=== PATIENT | female | born 1990 ===

== ENCOUNTER 2024-03-11 07:40 | Inpatient (IN) ==
[2024-03-11] MEDS ORDERED: OXYTOCIN 30 UNITS/NSS 30 UNITS/500 ML BAG IV PRN (08:22)
[2024-03-11] MEDS ORDERED: ACETAMINOPHEN 325 MG TAB PO PRN (08:22)
[2024-03-11] MEDS ORDERED: CALCIUM CARBONATE 500 MG CHEWABLE TAB PO PRN (08:22)
[2024-03-11] MEDS ORDERED: LIDOCAINE 1% LOCAL 20 ML VIAL INFIL PRN (08:22)
[2024-03-11] MEDS ORDERED: BUTORPHANOL TARTRATE 2 MG/ML VIAL IV PRN (08:27)
[2024-03-11 09:01] LABS: Hematocrit (blood only) 35.7 % (37.0-47.0); Hemoglobin 11.8 g/dl (12.0-16.0); Mean Corpuscular Hemoglobin 30.6 pg (25.0-34.0); Mean Corpuscular Hgb Conc 33.1 g/dL (32.0-36.0); Mean Corpuscular Volume 92.5 fL (80.0-100.0); Mean Platelet Volume 11.8 fL (9.4-12.4); Platelet Count 203 K/uL (130-400); RDW Coefficient of Variation 13.2 % (11.5-14.5); RDW Standard Deviation 44.2 fL (36.4-46.3); Red Blood Count 3.86 M/uL (4.20-5.40); White Blood Count 7.65 K/ul (4.8-10.8)
[2024-03-11 09:09] LABS: Albumin Globulin Ratio 1.2 (0.9-2); Albumin Level 3.2 gm/dl (3.4-5.0); BUN Creatinine Ratio 13.5 (10-20); Bilirubin,Total 0.3 mg/dl (0.2-1.0); Calcium 9.5 mg/dl (8.6-10.3); Creatinine Clr Calc Pharmacy 180.1 ml/min; Globulin 2.6 gm/dl (2.5-4.0); Potassium 3.7 mmol/L (3.5-5.1); Total Protein 5.8 gm/dl (6.0-8.3)
--- NOTE | 2024-03-11 09:11 | History & Physical Report ---
Date of Service March 11, 2024 Assessment & Plan (1) History of polyhydramnios: (2) Encounter for induction of labor: Plan: 33-year-old G1, P0 at 39 weeks and 1 day gestation who was scheduled for induction of labor at term due to recent diagnosis of polyhydramnios, recommended by [facility], Repeat CLARISSA is within normal limits today, Vital signs stable afebrile, Labs within normal limits, arrhythmia, benign, baseline normal, there are accelerations and moderate variability, no decelerations, GBS negative, Cervix unfavorable, Cervidil is placed for cervical ripening and discussed what to expect during induction of labor, continue to monitor closely. All questions were answered. (3) Anxiety during : (4) arrhythmia affecting , antepartum: Admission and Anticipated Discharge Date Admission Date: March 11, 2024 History of Present Illness Primary Care Provider: NO PCP Patient is a 33-year-old G1, P0 at 39 weeks and 1 day gestation who was scheduled for induction of labor at term due to findings of polyhydramnios on February 25, 2024, recommended by maternal medicine to be induced today. she feels well, no complaints. She denies contractions, leakage of fluid, vaginal bleeding. She reports good movements. Her has been otherwise uncomplicated, 1. AMA, NIPT low risk 2. Polyhydramnios, CLARISSA was 26 on February 24, repeat today is 16 cm, 3. Anxiety during , stable on Effexor 4. arrhythmia, reviewed by [facility] and recommended to be benign, GBS negative Allergies Allergy/AdvReac Type Severity Reaction Status Date / Time No Known Allergies Allergy Verified 05/24/19 14:40 Home Medications Medication Instructions Recorded Confirmed Type No Known Home Medications 05/24/19 05/24/19 History Patient History Medical History (Updated 03/11/24 @ 09:18 by Collin Ramirez MD) Snake bite poisoning copperhead bite in childhood, age 5 History of varicella as a child Surgical History (Updated 05/24/19 @ 14:59 by Althea Turner MD) H/O wisdom tooth extraction History of appendectomy 2013 Family History (Updated 05/24/19 @ 14:41 by Glendy Ferrari) Grandfather (Paternal) Myocardial infarction Denies family history of Ovarian cancer Prostate cancer Breast cancer Colonic polyp Social History (Updated 05/24/19 @ 14:42 by Glendy Ferrari) Smoking Status: Never smoker Second Hand Exposure: No; Do You Dip or Chew Tobacco: No; Tobacco Cessation Education Requested by Patient: No Hx Alcohol Use: No Hx Substance Use: No Preferred Language: Singaporean Communication Ability: Effective Gasket Notcher Required: No Beliefs That Will Affect Care: None marital status: Current Living Situation: Spouse Current Living Situation Comment: [place] current occupational status: employed and student Other Information That Helps Us Care for You: No Feels Safe at Home: Yes Safety Concerns: Feels Safe At This Time Childhood Exposure to Second-Hand Smoke: No caffeine: Yes Dental Care, Regularly: Yes Physical Activity Frequency: 3-4 Times per Week Seatbelt Use: always Sunscreen Use: Yes Assistive Devices: None CORE SHAPER SIDES History no history of STDs, no history of chlamydia, gonorrhea, herpes Review of Systems as per Subjective / HPI Physical Exam Constitutional: WD/WN, vitals as above well developed, well nourished and comfortable Gastrointestinal (Abdomen): normal bowel sounds, soft, nontender, no hepatosplenomegaly bedside ultrasound, vertex presentation, CLARISSA 16 cm, placenta fundal anterior Genitourinary: normal external appearance OB Exam Abdomen: + vertex Manual OB Exam: + cervical dilation fingertip, + cervical effacement 50% and + station high ( posterior) Results & Data Vital Signs (Past 12 Hours) Vital Signs Temp Pulse Resp BP 03/11/24 08:18 91 H 140/80 03/11/24 08:16 37.2 C 91 H 18 140/80 Diagnostic Findings Lab Results 03/11/24 Range/Units 08:41 WBC 7.65 (4.8-10.8) K/ul RBC 3.86 L (4.20-5.40) M/uL Hgb 11.8 L (12.0-16.0) g/dl Hct 35.7 L (37.0-47.0) % MCV 92.5 (80.0-100.0) fL MCH 30.6 (25.0-34.0) pg MCHC 33.1 (32.0-36.0) g/dL RDW Std Deviation 44.2 (36.4-46.3) fL RDW Coeff of Negrita 13.2 (11.5-14.5) % Plt Count 203 (130-400) K/uL MPV 11.8 (9.4-12.4) fL Sodium 137 (136-145) mmol/L Potassium 3.7 (3.5-5.1) mmol/L Chloride 107 (98-107) mmol/L Carbon Dioxide 23 (21-32) mmol/L Anion Gap 7 (3-11) BUN 7 (6-23) mg/dl Creatinine 0.52 L (0.6-1.2) mg/dl Est Cr Clr Drug Dosing 180.1 ml/min eGFR 124.18 BUN/Creatinine Ratio 13.5 (10-20) Glucose 95 (70-99(Fasting)) mg/dl Calcium 9.5 (8.6-10.3) mg/dl Total Bilirubin 0.3 (0.2-1.0) mg/dl AST 18 (13-39) U/L ALT 10 (7-52) U/L Alkaline Phosphatase 187 H (34-104) U/L Total Protein 5.8 L (6.0-8.3) gm/dl Albumin 3.2 L (3.4-5.0) gm/dl Globulin 2.6 (2.5-4.0) gm/dl Albumin/Globulin Ratio 1.2 (0.9-2)
[2024-03-11] MEDS: DINOPROSTONE 10 MG INSERT PV ONE ×2 (09:12→23:12)
--- NOTE | 2024-03-11 14:52 | Obstetrical Progress Note ---
Date of Service March 11, 2024 Assessment & Plan Admission and Anticipated Discharge Date Admission Date: March 11, 2024 Subjective Patient is reevaluated Feels well, no complaints, she slept for a while did not wake up with pain nor contractions, feels mild cramps, irregular. No LOF/VB +FM FHR categ I Discussed what to expect and plan for tonight depending on her cervix and contraction pattern All questions were answered. Continue to monitor closely Results & Data Vital Signs (Past 12 Hours) Vital Signs Temp Pulse Resp BP 03/11/24 12:10 16 03/11/24 12:10 36.9 C 16 03/11/24 12:08 74 141/87 H 03/11/24 09:19 86 132/82 03/11/24 09:15 89 166/98 H 03/11/24 08:18 91 H 140/80 03/11/24 08:16 37.2 C 91 H 18 140/80
--- OUTSIDE RECORDS SUMMARY | 2024-03-11 15:16 | External Medical Summary | Summary of Care ---
Author Name Unknown Organization [facility] Address [address] [place] [address] Phone [phone] Care Team Providers Care Assembly Loader Name Role Phone Tammy Stauffer MD Primary Care Provider + Reason for Visit * Reason Comments Ultrasound * Evaluate & Treat - Unlimited Visits (Within 10 days (routine)) - Authorized Specialty Diagnoses / Procedures Referred By Contac t Referred To Contact Obstetrics/Gynecology / Maternal Medicine Diagnoses Encounter for supervision of normal first in third trimester Advanced maternal age, primigravida, antepartum arrhythmia affecting , antepartum Polyhydramnios in third trimester complication, single or unspecified fetus Backer, JAYNE Mason [address] [place] [address] Phone: tel: fax: Referral ID Status Reason Start Date Expiration Date Visits Requested Visits Authorized [id number] Authorized Specialty Services Required 02/24/[phone] Encounter Details Date Type Department Care Team (Late st Contact Info) Description 03/02/2024 7:30 AM EST Office Visit [facility], [place] [address] [place] [address] Anna Caban, [address] [place] [address] Advanced maternal age, primigravida, antepartum*; Polyhydramnios in third trimester complication, single or unspecified fetus; Encounter for anatomic survey; 37 weeks gestation of ; arrhythmia affecting , antepartum Allergies Active Allergy Reactions Criticality Noted Date Comments Cat Dander Other (Please comment) 07/13/2021 Itchy nose,watery eyes Grass Pollen(K-O-R-T-Swt Adam) Other (Please comment) 07/13/2021 Itchy nose,watery eyes Molds & Smuts Other (Please comment) 07/13/2021 Itchy nose,watery eyes documented as of this encounter (statuses as of 03/02/2024) Medications Vitamin 27-0.8 MG Oral Tablet Take by mouth. Active Venlafaxine HCl ER 75 MG Oral Capsule Extended Release 24 Hour (Effexor XR)Indications: INGRIS (generalized anxiety disorder) TAKE BY MOUTH 1 CAPSULE IN THE MORNING. DO NOT CUT, CRUSH OR CHEW. 30 Capsule 2 12/22/2023 Active documented as of this encounter (statuses as of 03/02/2024) Active Problems Problem Noted Date Diagnosed Date arrhythmia affecting , antepartum 03/02/2024 Assessment & Plan (03/02/2024 12:33 PM EST): Irregular FH heard in the office recently. On today's exam, both conducted and nonconducted premature atrial contractions were seen. This was explained and the patient advised that this arrhythmia is considered benign and the natural history is one of spontaneous resolution either prior to or in the immediate period. In rare cases (1%), it may accelerate to SVT which could require pharmacologic treatment. Recommend weekly Doppler of FH in OB office or weekly NSTs to r/o SVT. Questions answered. Polyhydramnios in third trimester 02/24/2024 Overview (02/25/2024): CLARISSA 26.2 cm at 36w6d; repeat GTT normal Assessment & Plan (03/02/2024 12:32 PM EST): At your request, Melisa was seen today due to polyhydramnios on outside exam. Report reviewed. Normal 1'GTT on 02/23 as well as 12/24 reviewed. CONSIDERATIONS: Polyhydramnios is the presence of elevated levels of amniotic fluid index (CLARISSA) greater than or equal to 24 cm or a maximum of vertical pocket (MVP) greater than or equal to 8 cm. Polyhydramnios is categorized as: Mild CLARISSA of 24.0-29.9 cm Moderate CLARISSA of 30.0-34.9 cm Severe CLARISSA of greater than or equal to 35 cm We discussed potential etiologies and complications associated with polyhydramnios. Mild polyhydramnios often resolves spontaneously without negative effects on the . RECOMMENDATIONS: In non-diabetic patients, re-screen for GDM if not done within the previous 4 weeks. Already performed in this case. Recommend delivery at 39 weeks. History of respiratory syncytial virus (RSV) vac cination 01/28/2024 Overview (01/28/2024): 01/28/24 Family history of congenital or genetic conditio n 11/11/2023 Assessment & Plan (03/02/2024 9:20 AM EST): Melisa is not a carrier for mucopolysaccharidosis. INGRIS (generalized anxiety disorder) 11/11/2023 Screening for genetic disease carrier status 03/2023 Overview (10/23/2023): Expanded carrier screening for 600 genes completed. Testing was negative, she was not found to be a carrier for any condition. See scanned in report on 10/06/23. Supervision of normal first 10/02/2023 Advanced maternal age, primigravida, antepartum 09/04/2023 Overview (10/02/2023): Low risk NIPT Assessment & Plan (03/02/2024 8:58 AM EST): Low risk NIPT appreciated. Anxiety during 09/04/2023 Overview (09/04/2023): Taking Effexor at NOB. 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 03/26/2022 Chronic anxiety 07/13/2021 Estimated Date of Delivery Comme nts Yes 03/17/2024 Based on Ultraso und documented as of this encounter (statuses as of 03/02/2024) Immunizations Name Administration Dates Next Due COVID-19 mRNA, LNP-s, No Pre serve, 2-Dose Series (Pfizer) 03/01/2021,07/17/2020,06/27/2020 Hepatitis B, 20+ yrs 11/11/2023,10/10/2022,09/10 RSV Vac., Bivalent, Perfusio n F, Pf,0.5 Ml (Abrysvo) 01/28/2024 Seasonal Influenza, PF, 6 M & above, IM , (FluLaval or Fluzone) 02/18/2019 Seasonal Influenza, Trivalen t, (IIV3), PF, (Fluzone) 12/03/2023 TDAP (age 10 and older)(Boostrix) 10/10/2020 TDAP, Age 7 and older, IM (Adacel) 12/25/2023 documented as of this encounter Social History Tobacco Use Types Packs/Day Years Used Date Smoking Tobacco: Never Passive Smoke Exposure: Never Smokeless Tobacco: Never Alcohol Use Standard Drinks/Week Comments Not Currently 0 (1 standard drink = 0.6 oz pur e alcohol) on weekends PHQ-2 Answer Date Recorded PHQ Adult Total Score 0 11/11/2023 Hunger Vital Sign Answer Date Recorded Within the past 12 months, y ou worried that your food would run out before you got the money to buy more. Never true 10/20/19 24 Within the past 12 months, t he food you bought just didn't last and you didn't have money to get more. Never true 10/20/2023 [place]zell Depression Scale Answer Date Recorded Dal[place]ell Depression Scale Total 1 01/28/2024 The thought of harming myself has occurred to me . Never 01/28/2024 Childcare Answer Date Recorded Do you feel overwhelmed with taking care of a child, family member or friend? No 10/20/2023 Does your family need help f inding childcare? (Household - for ages 0-17 years) Not on file 10/20/2023 Clothing Answer Date Recorded Have you been unable to get clothing when it was really needed? No 10/20/2023 Is your family able to get c lothes or diapers when needed? (Household - for ages 0-17 years) Not on file 10/20/2023 Personal Safety Answer Date Recorded Do you feel unsafe or have concerns for your saf ety? No 10/20/2023 Do you have concerns for you r family's safety? (Household - for ages 0-17 years) Not on file 10/20/2023 Utilities Answer Date Recorded Do you have trouble paying y our heating, water, or electric bill? No 10/20/2023 Is your family able to pay t he heat, water, or electric bill? (Household - for ages 0-17 years) Not on file 10/20/2023 Does your family have access to good internet? (Household - for ages 0-17 years) Not on file 10/20/2023 Employment Status Answer Date Recorded Are you unemployed or without regular income? No 10/20/2023 Does the household have a re lar source of income? (Household - for ages 0-17 years) Not on file 10/20/2023 Social Connections Answer Date Recorded How often do you feel lonely or isolated from th ose around you? Rarely 10/20/2023 Financial Resource Strain Answer Date R ecorded Do you have any trouble payi ng for your medications, or do you think you might in the future? No 10/20/2023 Does your family have troubl e paying for medicine? (Household - for ages 0-17 years) Not on file 10/20/2023 Transportation Needs Answer Date Record ed Do you have trouble getting a ride to medical visits or work? (Adult - for ages 18 years and over) Not on file 10/20/2023 Does your family have a hard time getting a ride to doctors visits? (Household - for ages 0-17 years) Not on file 10/20/2023 Has lack of transportation k ept you from medical appointments, meetings, work, or from getting things needed for daily living? Check all that apply. No 10/20/2023 Do you (or your family) have trouble finding or paying for a ride (transportation)? (Household - for ages 0-17 years) Not on file 10/20/2023 Housing Stability Answer Date Recorded Do you currently live in a s helter or have no steady place to sleep at night? No 10/20/2023 Do you think you are at risk of becoming homeless? (Adult - for ages 18 years and over) Not on file 10/20/2023 Does your family worry about paying for your home or becoming homeless? (Household - for ages 0-17 years) Not on file 0 10/20/2023 Are you homeless or worried that you might be in the future? No 10/20/2023 Are you (or your family) benjamín eless or worried that you might be in the future? (Household - for ages 0-17 years) Not on file Food Insecurity Answer Date Recorded Do you need food for this week? No 10/20/2023 Are you able to get enough f ood for your family? (Household - for ages 0-17 years) Not on file 10/20/2023 Does your family need food t his week? (Household - for ages 0-17 years) Not on file 10/20/2023 Do you always have enough fo od for your family? (Household - for ages 0-17 years) Not on file 10/20/2023 Estimated Date of Delivery Comme nts Yes 03/17/2024 Based on Ultraso und Sex and Gender Information Value Date Recorded Sex Assigned at Female 08/28/2022 10:14 AM EDT Legal Sex Female 4:57 PM EST Gender Identity Female 08/28/2022 10:14 AM EDT Sexual Orientation Straight 08/28/2022 10 :14 AM EDT documented as of this encounter Progress Notes * Anna Caban, DO - 03/02/2024 12:32 PM EST MATERNAL MEDICINE VISIT Melisa Graves presented today at 37w6d for an ultrasound and follow-up of her high risk . She was seen for the following indications: Problem List Items Addressed This Visit Advanced maternal age, primigravida, antepartum - Primary Low risk NIPT appreciated. Polyhydramnios in third trimester At your request, Melisa was seen today due to polyhydramnios on outside exam. Report reviewed. Normal 1'GTT on 02/23 as well as 12/24 reviewed. CONSIDERATIONS: Polyhydramnios is the presence of elevated levels of amniotic fluid index (CLARISSA) greater than or equal to 24 cm or a maximum of vertical pocket (MVP) greater than or equal to 8 cm. Polyhydramnios is categorized as: Mild CLARISSA of 24.0-29.9 cm Moderate CLARISSA of 30.0-34.9 cm Severe CLARISSA of greater than or equal to 35 cm We discussed potential etiologies and complications associated with polyhydramnios. Mild polyhydramnios often resolves spontaneously without negative effects on the . RECOMMENDATIONS: In non-diabetic patients, re-screen for GDM if not done within the previous 4 weeks. Already performed in this case. Recommend delivery at 39 weeks. arrhythmia affecting , antepartum Irregular FH heard in the office recently. On today's exam, both conducted and nonconducted premature atrial contractions were seen. This was explained and the patient advised that this arrhythmia isconsidered benign and the natural history is one of spontaneous resolution either prior to yong the immediate period. In rare cases (1%), it may accelerate to SVT which could require pharmacologic treatment. Recommend weekly Doppler of FH in OB office or weekly NSTs to r/o SVT. Questions answered. Other Visit Diagnoses Encounter for anatomic survey 37 weeks gestation of We reviewed today's ultrasound findings. Normal growth with no evidence of structural abnormalities, however exam suboptimal dueto advanced gestational age and position. Mild polyhydramnios. PACs noted. (For full details, please refer to ultrasound report provided separately). Ms. Graves's questions were answered to her satisfaction. She was advised to contact our office or her OB provider for any additional questions regarding her . RECOMMENDATIONS: Follow up with MFM for ultrasound as clinically indicated. Delivery at 39 weeks. Thank you for allowing us to participate in the care of this patient. Please call with any questions. Anna Caban DO 03/02/2024 12:34 PM documented in this encounter Miscellaneous Notes * Assessment & Plan Note - Anna Caban DO - 03/02/2024 12:33 PM EST Associated Problem(s): arrhythmia affecting , antepartum Irregular FH heard in the office recently. On today's exam, both conducted and nonconducted premature atrial contractions were seen. This was explained and the patient advised that this arrhythmia isconsidered benign and the natural history is one of spontaneous resolution either prior to yong the immediate period. In rare cases (1%), it may accelerate to SVT which could require pharmacologic treatment. Recommend weekly Doppler of FH in OB office or weekly NSTs to r/o SVT. Questions answered. * Assessment & Plan Note - Anna Caban DO - 03/02/2024 9:03 AM EST Associated Problem(s): Family history of congenital or genetic condition Melisa is not a carrier for mucopolysaccharidosis. * Assessment & Plan Note - Anna Caban DO - 03/02/2024 8:58 AM EST Associated Problem(s): Advanced maternal age, primigravida, antepartum Low risk NIPT appreciated. * Assessment & Plan Note - Anna Caban DO - 03/02/2024 8:57 AM EST Associated Problem(s): Polyhydramnios in third trimester At your request, Melisa was seen today due to polyhydramnios on outside exam. Report reviewed. Normal 1'GTT on 02/23 as well as 12/24 reviewed. CONSIDERATIONS: Polyhydramnios is the presence of elevated levels of amniotic fluid index (CLARISSA) greater than or equal to 24 cm or a maximum of vertical pocket (MVP) greater than or equal to 8 cm. Polyhydramnios is categorized as: Mild CLARISSA of 24.0-29.9 cm Moderate CLARISSA of 30.0-34.9 cm Severe CLARISSA of greater than or equal to 35 cm We discussed potential etiologies and complications associated with polyhydramnios. Mild polyhydramnios often resolves spontaneously without negative effects on the . RECOMMENDATIONS: In non-diabetic patients, re-screen for GDM if not done within the previous 4 weeks. Already performed in this case. Recommend delivery at 39 weeks. documented in this encounter Plan of Treatment Upcoming Encounters Date Type Department Care Team (Late st Contact Info) Description 11/11/2024 8:00 AM EDT Office Visit General Internal Medicine [facility] [place] [address] [facility] [place], [place] [address] Tammy Stauffer MD [address] [facility] [place] [address] Scheduled Orders Name Type Priority Associated Diagnoses Orde r Schedule MFM US BIOPHYSICAL WO NON STRESS Medical Imaging Routine Advanced maternal age, primigravida, antepartum Polyhydramnios in third trimester complication, single or unspecified fetus Encounter for anatomic survey 37 weeks gestation of arrhythmia affecting , antepartum 1 Occurrences starting 03/02/2024 until 04/02/2024 Health Maintenance Due Date Last Done Comments HPV/Co-Test 2018 COVID-19 Vaccine ( season) 2023 02/11/2023, 03/01/2021, 07/17/2020, Additional history exists Cervical Cancer Screening 07/13/2024 Pap Smear 07/13/2024 07/13/2021 Depression Monitoring 11/10/2024 11/11/2023 Diabetes Screening 09/10/2025 09/10/2022, 07/13/2021 DTap/Tdap Vaccines (3 - Td or Tdap) 12/24/2033 12/25/2023, 10/10/2020 Hepatitis B Vaccine Completed 11/11/2023, 10/10/2022, 09/10/2022 Influenza Vaccine (FLU shot) Completed 01/2024, 02/18/2019, 02/18/2019 HPV (Gardasil) Vaccine Aged Out No lo nger eligible based on patient's age to complete this topic MENINGOCOCCAL (MENACTRA/MENVEO) Aged Out No longer eligible based on patient's age to complete this topic Pneumococcal Vaccine: Pediatrics (0 to 5 Years) and At-Risk Patients (6 to 64 Years) Aged Out No longer eligible based on patient's age to complete this topic documented as of this encounter Medical Devices Not on filedocumented as of this encounter Visit Diagnoses Diagnosis Advanced maternal age, primigravida, antepartum- Primary Elderly primigravida, antepartum Polyhydramnios in third trimester complication, single or unspecified fetus Encounter for anatomic survey 37 weeks gestation of state, incidental arrhythmia affecting , antepartum Abnormality in heart rate/rhythm, antepartum condition or complication documented in this encounter Care Teams Assembly Loader Relationship Specialty Start Date End Date Tammy Stauffer MD [address] [place] [id number] PCP - General Internal Medicine 04/16/19 documented as of this encounter
--- OUTSIDE RECORDS SUMMARY | 2024-03-11 15:16 | External Medical Summary | Summary of Care ---
Author Name Unknown Organization [facility] Address [address] [place] [address] Phone [phone] Care Team Providers Care Billboard Installer Name Role Phone Tammy Stauffer MD Primary Care Provider + Reason for Visit * Reason Comments Return Visit Encounter Details Date Type Department Care Team (Late st Contact Info) Description 03/08/2024 2:15 PM EST Office Visit Gynecology/Obstetric [facility] [address] [place] [address] Jerome Self MD [address] [facility] [address] Advanced maternal age, primigravida, antepartum*; Anxiety during ; Encounter for supervision of normal first in third trimester; History of respiratory syncytial virus (RSV) vaccination; Polyhydramnios in third trimester complication, single or unspecified fetus; arrhythmia affecting , antepartum Allergies Active Allergy Reactions Criticality Noted Date Comments Cat Dander Other (Please comment) 07/13/2021 Itchy nose,watery eyes Grass Pollen(K-O-R-T-Swt Adam) Other (Please comment) 07/13/2021 Itchy nose,watery eyes Molds & Smuts Other (Please comment) 07/13/2021 Itchy nose,watery eyes documented as of this encounter (statuses as of 03/08/2024) Medications Vitamin 27-0.8 MG Oral Tablet Take by mouth. Active Venlafaxine HCl ER 75 MG Oral Capsule Extended Release 24 Hour (Effexor XR)Indications: INGRIS (generalized anxiety disorder) TAKE BY MOUTH 1 CAPSULE IN THE MORNING. DO NOT CUT, CRUSH OR CHEW. 30 Capsule 2 12/22/2023 Active documented as of this encounter (statuses as of 03/08/2024) Active Problems Problem Noted Date Diagnosed Date [...] as of this encounter (statuses as of 03/08/2024) Immunizations Name Administration Dates Next Due COVID-19 mRNA, LNP-s, No Pre serve, 2-Dose Series ([place]ASTA) 03/01/2021,07/17/2020,06/27/2020 Hepatitis B, 20+ yrs 11/11/2023,10/10/2022,09/10 RSV [...] money to get more. Never true 10/20/2023 [place] Depression Scale Answer Date Recorded [place] Depression Scale Total 1 01/28/2024 The thought [...] 10/20/2023 Does the household have a re gular source of income? (Household - for ages [...] AM EDT documented as of this encounter Last Filed Vital Signs Vital Sign Reading Time Taken Comments Blood Pressure 132/80 03/08/2024 2:11 PM EST Pulse - - Temperature - - Respiratory Rate - - Oxygen Saturation - - Inhaled Oxygen Concentration - - Weight 103.4 kg (228 lb) 03/08/2024 2:11 PM EST Height 167 cm (5' 5.75") 03/08/2024 2:11 PM EST Body Mass Index 37.08 03/08/2024 2:11 PM EST documented in this encounter Progress Notes * Jerome Self MD - 03/08/2024 2:36 PM EST Pt doing well No complaints Bree for induction on for Poly documented in this encounter Nursing Notes * Maddi Kowalski LPN - 03/08/2024 2:15 PM EST 38w5d Denies concerns documented in this encounter Plan of Treatment Upcoming Encounters Date Type Department Care Team (Late st Contact Info) Description 11/11/2024 8:00 AM EDT Office Visit General Internal Medicine Juvenal Sheehan [place] [address] [facility] [place] [address] Tammy Mitchell MD 200 [facility] [address] Health Maintenance Due Date Last Done Comments [...] in heart rate/rhythm, antepartum condition or complication Advanced maternal age, primigravida, antepartum- Primary Elderly primigravida, antepartum Anxiety during Encounter for supervision of normal first in third trimester Supervision of normal first History of respiratory syncytial virus (RSV) vaccination Polyhydramnios in third trimester complication, single or unspecified fetus arrhythmia affecting , antepartum Abnormality in heart rate/rhythm, antepartum condition or complication documented in this encounter Care Teams Billboard Installer Relationship Specialty Start Date End Date Tammy Stauffer MD [address] [place] [address] PCP - General Internal Medicine 04/16/19 documented as of this encounter
--- OUTSIDE RECORDS SUMMARY | 2024-03-11 15:16 | External Medical Summary | Summary of Care ---
Author Name Unknown Organization [facility] Address [address] [place] [address] Phone [phone] Care Team Providers Care Or Director Name Role Phone Tammy Stauffer MD Primary Care Provider + Reason for Visit * Reason Onset Date Comments Follow Up 03/03/2024 Encounter Details Date Type Department Care Team (Late st Contact Info) Description 03/03/2024 Telephone Gynecology/Obstetrics [facility] [address] [place] [address] Malaika Cordova CRNP [address] [facility] [address] Follow Up Allergies Active Allergy Reactions Criticality Noted Date Comments Cat Dander Other (Please comment) 07/13/2021 Itchy nose,watery eyes Grass Pollen(K-O-R-T-Swt Adam) Other (Please comment) 07/13/2021 Itchy nose,watery eyes Molds & Smuts Other (Please comment) 07/13/2021 Itchy nose,watery eyes documented as of this encounter (statuses as of 03/03/2024) Medications Vitamin 27-0.8 MG Oral Tablet Take by mouth. Active Venlafaxine HCl ER 75 MG Oral Capsule Extended Release 24 Hour (Effexor XR)Indications: INGRIS (generalized anxiety disorder) TAKE BY MOUTH 1 CAPSULE IN THE MORNING. DO NOT CUT, CRUSH OR CHEW. 30 Capsule 2 12/22/2023 Active documented as of this encounter (statuses as of 03/03/2024) Active Problems Problem Noted Date Diagnosed Date [...] as of this encounter (statuses as of 03/03/2024) Immunizations Name Administration Dates Next Due COVID-19 mRNA, LNP-s, No Pre serve, 2-Dose Series (Dctio) 03/01/2021,07/17/2020,06/27/2020 Hepatitis B, 20+ yrs 11/11/2023,10/10/2022,09/10 RSV [...] money to get more. Never true 10/20/2023 [place] Depression Scale Answer Date Recorded [place] Depression Scale Total 1 01/28/2024 The thought [...] AM EDT documented as of this encounter Miscellaneous Notes * Telephone Encounter - Maddi Kowalski LPN - 03/03/2024 9:04 AM EST TC to patient, accepts this date for IOL. Also moved French up from 03/12 to 03/08. * Telephone Encounter - Maddi Kowalski LPN - 03/03/2024 8:56 AM EST TC to patient, agreeable to scheduling induction next week. Scheduled for 03/11/24. * Telephone Encounter - Malaika Cordova CRNP - 03/03/2024 8:09 AM EST Received MFM note from visit - diagnosed with polyhydramnios. Dr Caban is recommending delivery in 39th week due to this. If patient is comfortable doing so, please help schedule induction at [facility]. Jeovany happy to speak with her further if needed. JAYNE Hoffman documented in this encounter Plan of Treatment Upcoming Encounters Date Type Department Care Team (Late st Contact Info) Description 03/08/2024 2:15 PM EST Office Visit Gynecology/Obstetrics [address] [place] [address] Jerome Self MD [address] [place] [address] 11/11/2024 8:00 AM EDT Office Visit General Internal Medicine [place] Claudia Islas [address] [facility] [place] [address] Tammy Stauffer MD [address] [facility] [place] [address] Health Maintenance Due Date Last Done Comments [...] Not on filedocumented as of this encounter Care Teams Or Director Relationship Specialty Start Date End Date Tammy Stauffer MD 200 [facility] [place] [address] PCP - General Internal Medicine 04/16/19 documented as of this encounter
--- OUTSIDE RECORDS SUMMARY | 2024-03-11 15:17 | External Medical Summary | Summary of Care ---
Author Name Unknown Organization [facility] Address [address] [place] [address] Phone [phone] Care Team Providers Care Commercial Leasing Agent Name Role Phone Tammy Stauffer MD Primary Care Provider + Reason for Visit * Reason Comments Return Visit Encounter Details Date Type Department Care Team (Late st Contact Info) Description 03/01/2024 3:45 PM EST Office Visit Gynecology/Obstetric s [facility] [address] [facility] [place] [address] Jerome Self MD [address] [facility] [place] [address] Advanced maternal age, primigravida, antepartum*; Anxiety during ; Encounter for supervision of normal first in third trimester; History of respiratory syncytial virus (RSV) vaccination; Polyhydramnios in third trimester complication, single or unspecified fetus Allergies Active Allergy Reactions Criticality Noted Date Comments Cat Dander Other (Please comment) 07/13/2021 Itchy nose,watery eyes Grass Pollen(K-O-R-T-Swt Adam) Other (Please comment) 07/13/2021 Itchy nose,watery eyes Molds & Smuts Other (Please comment) 07/13/2021 Itchy nose,watery eyes documented as of this encounter (statuses as of 03/01/2024) Medications Vitamin 27-0.8 MG Oral Tablet Take by mouth. Active Venlafaxine HCl ER 75 MG Oral Capsule Extended Release 24 Hour (Effexor XR)Indications: INGRIS (generalized anxiety disorder) TAKE BY MOUTH 1 CAPSULE IN THE MORNING. DO NOT CUT, CRUSH OR CHEW. 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 Testing was negative, she was not found to be a carrier for any condition. See scanned in report on 10/06/23. Supervision of normal first 10/02/2023 Advanced maternal age, primigravida, antepartum 09/04/2023 Overview (10/02/2023): Low risk NIPT Anxiety during 09/04/2023 Overview (09/04/2023): Taking Effexor at NOB. 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 Never true 10/20/2023 [place] Depression Scale Answer Date Recorded [place] Depression Scale Total 1 01/28/2024 The thought [...] Sign Reading Time Taken Comments Blood Pressure 132/82 03/01/2024 3:33 PM EST Pulse - - Temperature - - Respiratory Rate - - Oxygen Saturation - - Inhaled Oxygen Concentration - - Weight 103.2 kg (227 lb 8 oz) 03/01/2024 3:33 PM EST Height - - Body Mass Index 37 02/20/2024 4:05 PM EST documented in this encounter Progress Notes * Jerome Self MD - 03/01/2024 4:05 PM EST Pt doing well No complaints CLARISSA ; 24 Seeing MFM tomorrow * Marcella Obregon CMA - 03/01/2024 3:33 PM EST 37w5d + nausea + pelvic pain/pressure documented in this encounter Plan of Treatment Upcoming Encounters Date Type Department Care Team (Late st Contact Info) Description 03/02/2024 7:30 AM EST Office Visit Senior Underwriter Obstetrics Maternal Medicine, [address] [address] Anna Caban, [address] [place] [address] 03/02/2024 7:30 AM EST [facility] [place] [address] [place] [address] 11/11/2024 8:00 AM EDT Office Visit General Internal Medicine Juvenal Sheehan [place] 200 [facility] [place] [address] Tammy Stauffer MD 200 [facility] [place] [address] Health Maintenance Due Date Last Done Comments [...] third trimester complication, single or unspecified fetus documented in this encounter Care Teams Commercial Leasing Agent Relationship Specialty Start Date End Date Tammy Stauffer MD 200 [facility] [place] [address] PCP - General Internal Medicine 04/16/19 documented as of this encounter
--- OUTSIDE RECORDS SUMMARY | 2024-03-11 15:17 | External Medical Summary | Summary of Care ---
Author Name Unknown Organization [facility] Address [address] [place] [address] Phone [phone] Care Team Providers Care Tableau Analyst Name Role Phone Tammy Stauffer MD Primary Care Provider + Reason for Visit * Reason Comments Outpatient Testing Encounter Details Date Type Department Care Team (Late st Contact Info) Description 12/25/2023 10:40 AM EDT Laboratory Laboratory, [facility] [address] [place] [id number] [facility] [address] [place] [address] Encounter for supervision of normal first in second trimester Allergies Active Allergy Reactions Criticality Noted Date Comments Cat Dander Other (Please comment) 07/13/2021 Itchy nose,watery eyes Grass Pollen(K-O-R-T-Swt Adam) Other (Please comment) 07/13/2021 Itchy nose,watery eyes Molds & Smuts Other (Please comment) 07/13/2021 Itchy nose,watery eyes documented as of this encounter (statuses as of 12/25/2023) Medications Medication Sig Dispensed Refills Start Date End Date Status Vitamin 27-0.8 MG Oral Tablet Take by mouth. Active Venlafaxine HCl ER 75 MG Oral Capsule Extended Release 24 Hour (Effexor XR)Indications:INGRIS (generalized anxiety disorder) TAKE BY MOUTH 1 CAPSULE IN THE MORNING. DO NOT CUT, CRUSH OR CHEW. 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 Testing was negative, she was not found to be a carrier for any condition. See scanned in report on 10/06/23. Supervision of normal first 10/02/2023 Advanced maternal age, primigravida, antepartum 09/04/2023 Overview: Low risk NIPT Anxiety during 09/04/2023 Overview: Taking Effexor at NOB. 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 Never true 10/20/2023 [place] Depression Scale Answer Date Recorded [place] Depression Scale Total 6 09/04/2023 The thought of harming myself has occurred to me . Never 09/04/2023 Childcare Answer Date Recorded Do you feel [...] 10/20/2023 Transportation Needs Answer Date Record ed READ ONLY Do you have troubl e getting a ride to medical visits or work? Never True 10/20/2023 Does your family have a hard [...] place to sleep at night? No 10/20/2023 READ ONLY Do you think you a re at risk of becoming homeless? No 10/20/2023 Does your family worry about paying [...] Assigned at Female 08/28/2022 10:14 AM EDT Gender Identity Female 08/28/2022 10:14 AM EDT Sexual Orientation Straight 08/28/2022 10 :14 AM EDT Job Start Date Occupation Industry Not on file Not on file Not on file documented as of this encounter Plan of Treatment Upcoming Encounters Date Type Department Care Team (Late st Contact Info) Description 01/08/2024 2:15 PM EDT Office Visit Gynecology/Obstetrics Elvin Gardner [address] [place] [address] Flor Pack CRNP [address] [place] [address] 11/11/2024 8:00 AM EDT Office Visit General Internal Medicine [place]ven[place] She[place] [facility] [place] [address] Tammy Stauffer MD 200 [facility] [place] [address] Pending Results Name Type Priority Associated Diagnoses Date /Time CBC WITH WBC DIFFERENTIAL AND ANEMIA REFLEX WORKUP Lab Routine Encounter for supervision of normal first in second trimester 12/25/2023 12:15 PM EDT SYPHILIS ANTIBODY SCREEN WITH REFLEX TO RPR Lab Routine Encounter for supervision of normal first in second trimester 12/25/2023 12:15 PM EDT ANEMIA CBC Lab Routine Encounter for supervision of normal first in second trimester 12/25/2023 12:15 PM EDT DIFFERENTIAL, AUTOMATED Lab Routine Encounter for supervision of normal first in second trimester 12/25/2023 12:15 PM EDT ANEMIA REFLEX CHEMISTRY HOLD Lab Routine Encounter for supervision of normal first in second trimester 12/25/2023 12:15 PM EDT SYPHILIS ANTIBODY SCREEN Lab Routine Encounter for supervision of normal first in second trimester 12/25/2023 12:15 PM EDT Health Maintenance Due Date Last Done Comments [...] Not on filedocumented as of this encounter Procedures Procedure Name Priority Date/Time Associated Diagnosis Comments 50-G GESTATIONAL GLUCOSE, 1 HOUR Routine 12/25/2023 12:15 PM EDT Encounter for supervision of normal first in second trimester documented in this encounter Results * 50-G GESTATIONAL GLUCOSE, 1 HOUR (12/25/2023 12:15 PM EDT) 50-g Gestational Glucose, 1 Hour 129 70 - 129 mg/dL 12/25/2023 12:56 PM EDT [facility] [place] [facility]10 Blood Venous blood specimen / Unknown Venipuncture / Unknown 12/25/2023 12:15 PM EDT 12/25/2023 12:15 PM EDT Cass Roque PA-C LAB BLOOD ORDERABLES [facility] [place] [facility]10 [address] [facility] [place] [address] documented in this encounter Visit Diagnoses Diagnosis Encounter for supervision of normal first in second trimester Supervision of normal first documented in this encounter Care Teams Tableau Analyst Relationship Specialty Start Date End Date Tammy Stauffer MD 200 [facility] [place] [address] PCP - General Internal Medicine 04/16/19 documented as of this encounter
--- OUTSIDE RECORDS SUMMARY | 2024-03-11 15:17 | External Medical Summary | Summary of Care ---
Author Name Unknown Organization [facility] Address [address] [place] [address] Phone [phone] Care Team Providers Care Color Expert Name Role Phone Tammy Stauffer MD Primary Care Provider + Reason for Visit * Reason Comments Return Visit Encounter Details Date Type Department Care Team (Late st Contact Info) Description 02/20/2024 4:15 PM EST Office Visit Gynecology/Obstetric [facility] [address] [facility] [place] [address] Jerome Self MD [address] [address] Advanced maternal age, primigravida, antepartum*; Anxiety during ; Encounter for supervision of normal first in third trimester; History of respiratory syncytial virus (RSV) vaccination Allergies Active Allergy Reactions Criticality Noted Date [...] mRNA, LNP-s, No Pre serve, 2-Dose Series ([place]) 03/01/2021,07/17/2020,06/27/2020 Hepatitis B, 20+ yrs 11/11/2023,10/10/2022,09/10 RSV [...] money to get more. Never true 10/20/2023 [place] Depression Scale Answer Date Recorded [place] Depression Scale Total 1 01/28/2024 The thought [...] Sign Reading Time Taken Comments Blood Pressure 120/68 02/20/2024 4:05 PM EST Pulse - - Temperature - - Respiratory Rate - - Oxygen Saturation - - Inhaled Oxygen Concentration - - Weight 103 kg (227 lb) 02/20/2024 4:05 PM EST Height 167 cm (5' 5.75") 02/20/2024 4:05 PM EST Body Mass Index 36.92 02/20/2024 4:05 PM EST documented in this encounter Progress Notes * Jerome Self MD - 03/01/2024 4:34 PM EST Pt doing well No comaplaionts documented in this encounter Nursing Notes * Carly Jackson LPN - 02/20/2024 4:06 PM EST 36w2d Needs gbs documented in this encounter Plan of Treatment Upcoming Encounters Date Type Department Care Team (Late st Contact Info) Description 03/02/2024 7:30 AM EST Office Visit Adjunct Art History Instructor Obstetrics Maternal Medicine, [address] [address] Anna Caban DO [address] [place] [facility] [place] [address] 03/02/2024 7:30 AM EST [facility] [address] [place] [address] 11/11/2024 8:00 AM EDT Office Visit General Internal Medicine Juvenal Sheehan [place] 200 [facility] [place] [place] [address] Tammy Stauffer MD 200 [facility] [place] [address] Health Maintenance Due Date Last Done Comments [...] Procedure Name Priority Date/Time Associated Diagnosis Comments GROUP B STREP CULTURE/PCR Routine 02/20/2024 4:16 PM EST Anxiety during documented in this encounter Results * GROUP B STREP CULTURE/PCR (02/20/2024 4:16 PM EST) Group B Strep PCR Result Negative Negative 02/21/2024 8:26 PM EST [facility] Comment:No Group B Streptoco ccus detected by culture-enhanced PCR (amplified probe). GBS GBSCt 0.0 02/21/2024 8:26 PM EST [facility] GBS SPCCt 32.0 02/21/2024 8:26 PM EST [facility] Swab Rectum and vagina, CS / Unknown 02/20/2024 4:16 PM EST 02/20/2024 4:16 PM EST us Jerome Self MD LAB MICRO - GENERAL ORDERABLES F inal Result [facility] [address] [place] [address] documented in this encounter Visit Diagnoses Diagnosis Advanced maternal age, primigravida, antepartum- Primary Elderly primigravida, antepartum Anxiety during Encounter for supervision of normal first in third trimester Supervision of normal first History of respiratory syncytial virus (RSV) vaccination documented in this encounter Care Teams Color Expert Relationship Specialty Start Date End Date Tammy Stauffer MD 200 [facility] [place] [address] PCP - General Internal Medicine 04/16/19 documented as of this encounter
--- OUTSIDE RECORDS SUMMARY | 2024-03-11 15:17 | External Medical Summary ---
Author Name Unknown Address Unknown Organization K01:[facility] [place] [address] [place] [address] Laboratory Report Ordering Provider Test Date Status JOSHUA SCOTT 02/20/2024 16:16:35 Final Observation Date Value Abnormality Reference (Units ) Status Streptococcus agalactiae DNA [Presence] in Specimen by OLAG LIDIA with probe detection 02/20/2024 16:16:35 Negative Negative Final No Group B Streptococcus det ected by culture-enhanced PCR (amplified probe). GBS GBSCT - [facility] 02/20/2024 16:16:35 0.0 Final GBS SPCCT - [facility] 02/20/2024 16:16:35 32.0 Final Performing Location [facility] [place] [address]
--- OUTSIDE RECORDS SUMMARY | 2024-03-11 15:17 | External Medical Summary | Summary of Care ---
Author Name Unknown Organization [facility] Address [address] [place] [address] Phone [phone] Care Team Providers Care Baker Pie Name Role Phone Tammy Stauffer MD Primary Care Provider + Reason for Visit * Reason Onset Date Comments Referral 02/25/2024 Encounter Details Date Type Department Care Team (Late st Contact Info) Description 02/25/2024 Telephone Director Business Development Obstetrics Maternal Medicine, [place] [address], [place] [id number] [place], Nurse Director Business Development [facility] [address] [place], [place] [phone] Referral Allergies Active Allergy Reactions Criticality Noted Date Comments Cat Dander Other (Please comment) 07/13/2021 Itchy nose,watery eyes Grass Pollen(K-O-R-T-Swt Adam) Other (Please comment) 07/13/2021 Itchy nose,watery eyes Molds & Smuts Other (Please comment) 07/13/2021 Itchy nose,watery eyes documented as of this encounter (statuses as of 02/25/2024) Medications Vitamin 27-0.8 MG Oral Tablet Take by mouth. Active Venlafaxine HCl ER 75 MG Oral Capsule Extended Release 24 Hour (Effexor XR)Indications: INGRIS (generalized anxiety disorder) TAKE BY MOUTH 1 CAPSULE IN THE MORNING. DO NOT CUT, CRUSH OR CHEW. 30 Capsule 2 12/22/2023 Active documented as of this encounter (statuses as of 02/25/2024) Active Problems Problem Noted Date Diagnosed Date [...] as of this encounter (statuses as of 02/25/2024) Immunizations Name Administration Dates Next Due COVID-19 mRNA, LNP-s, No Pre serve, 2-Dose Series ([employer]) 03/01/2021,07/17/2020,06/27/2020 Hepatitis B, 20+ yrs 11/11/2023,10/10/2022,09/10 RSV [...] money to get more. Never true 10/20/2023 [place] Depression Scale Answer Date Recorded [place] Depression Scale Total 1 01/28/2024 The thought [...] encounter Miscellaneous Notes * Telephone Encounter - Kristie Fisher OSA - 02/25/2024 10:09 AM EST Spoke with Melisa. Appointment scheduled. Patient aware of date, time and location of Maternal Medicine appointment. * Telephone Encounter - Althea Zheng CCMA - 02/25/2024 9:51 AM EST Estimated Date of Delivery: 03/17/24 Please schedule for LONG SCAN, in time frame of within 1 week at location [facility] with the indication of AMA (36), arrhythmia, polyhydramnios. Referring Provider: Malaika Cordova CRNP documented in this encounter Plan of Treatment Upcoming Encounters Date Type Department Care Team (Late st Contact Info) Description 03/01/2024 3:45 PM EST [facility] [address] [place] [address] Jerome Self MD [address] [place] [address] 03/02/2024 7:30 AM EST Office Visit Director Business Development Obstetrics Maternal Medicine, [place] [address] [place] [address] Mee Anna Sullivan, [address] [place] [address] 03/02/2024 7:30 AM EST [facility] [place] [address] [place] [address] 11/11/2024 8:00 AM EDT Office Visit General Internal Medicine [place]venal Sheehan [place] [address] [facility] [place] [address] Tammy Stauffer MD [address] [facility] [place] [address] Health Maintenance Due Date Last Done Comments [...] filedocumented as of this encounter Care Teams Baker Pie Relationship Specialty Start Date End Date Tammy Stauffer MD [address] [place] [address] PCP - General Internal Medicine 04/16/19 documented as of this encounter
--- OUTSIDE RECORDS SUMMARY | 2024-03-11 15:17 | External Medical Summary | Summary of Care ---
Author Name Unknown Organization [facility] Address [address] [place] [address] Phone [phone] Care Team Providers Care Anthropology Professor Name Role Phone Tammy Stauffer MD Primary Care Provider + Reason for Referral * Evaluate & Treat - Unlimited Visits (Within 10 days (routine)) - Authorized Specialty Diagnoses / Procedures Referred By Colton t Referred To Contact Obstetrics/Gynecology / Maternal Medicine Diagnoses Encounter for supervision of normal first in third trimester Advanced maternal age, primigravida, antepartum arrhythmia affecting , antepartum Polyhydramnios in third trimester complication, single or unspecified fetus Malaika Cordova CRNP [address] [place] [address] Phone: tel: fax: Referral ID Status Reason Start Date Expiration Date Visits Requested Visits Authorized [id number] Authorized Specialty Services Required 02/24/2024 999 [id number] Question Answer Referral Priority Within 10 days (routine) Has the patient had a viability scan? Yes Date performed 09/04/2023 Location performed Radiology Reason for referral Abnormal ultrasound findings Please provide additional details CLARISSA 26 cm, arrythmia auscultated Where should this appointment be scheduled? [facility] Comments /Para: LMP: No LMP recorded (lmp unknown). Patient is . SANTANA: 03/17/2024, by Ultrasound Pre-Gravid BMI: 30.09 Reason for Visit * Reason Comments Return Visit Encounter Details Date Type Department Care Team (Late st Contact Info) Description 02/24/2024 1:45 PM EST Office Visit Gynecology/Obstetric s Elvin Gardner [address] [place] [address] [place], JAYNE Mason [address] [place] [address] Encounter for supervision of normal first in third trimester*; Advanced maternal age, primigravida, antepartum; Anxiety during ; History of respiratory syncytial virus (RSV) vaccination; Uterine size date discrepancy ; arrhythmia affecting , antepartum; Polyhydramnios in third trimester complication, single or unspecified fetus Allergies Active Allergy Reactions Criticality Noted Date Comments Cat Dander Other (Please comment) 07/13/2021 Itchy nose,watery eyes Grass Pollen(K-O-R-T-Swt Adam) Other (Please comment) 07/13/2021 Itchy nose,watery eyes Molds & Smuts Other (Please comment) 07/13/2021 Itchy nose,watery eyes documented as of this encounter (statuses as of 02/24/2024) Medications Vitamin 27-0.8 MG Oral Tablet Take by mouth. Active Venlafaxine HCl ER 75 MG Oral Capsule Extended Release 24 Hour (Effexor XR)Indications: INGRIS (generalized anxiety disorder) TAKE BY MOUTH 1 CAPSULE IN THE MORNING. DO NOT CUT, CRUSH OR CHEW. 30 Capsule 2 12/22/2023 Active documented as of this encounter (statuses as of 02/24/2024) Active Problems Problem Noted Date Diagnosed Date Polyhydramnios in third trimester 02/24/2024 Overview (02/24/2024): CLARISSA 26.2 cm at 36w6d History of respiratory syncytial virus (RSV) vac [...] as of this encounter (statuses as of 02/24/2024) Immunizations Name Administration Dates Next Due COVID-19 mRNA, LNP-s, No Pre serve, 2-Dose Series ([employer]) 03/01/2021,07/17/2020,06/27/2020 Hepatitis B, 20+ yrs 11/11/2023,10/10/2022,09/10 RSV [...] money to get more. Never true 10/20/2023 [place] Depression Scale Answer Date Recorded [place] Depression Scale Total 1 01/28/2024 The thought [...] Sign Reading Time Taken Comments Blood Pressure 136/78 02/24/2024 1:45 PM EST Pulse - - Temperature - - Respiratory Rate - - Oxygen Saturation - - Inhaled Oxygen Concentration - - Weight 103 kg (227 lb) 02/24/2024 1:45 PM EST Height - - Body Mass Index 36.92 02/20/2024 4:05 PM EST documented in this encounter Progress Notes * Malaika Cordova CRNP - 02/24/2024 1:59 PM EST 36w6d Very uncomfortable with sciatic pain, working with PT. No leaking, bleeding, ctx. Baby is moving well. Anxiety well managed with Effexor at current dose. S>D, growth scan today shows EFW 76th %ile, CLARISSA elevated at 26.2 cm. Skipped beats auscultated on doppler, NST reactive. Reviewed this with Dr Caban in MFM, who states arrhythmia are likely benign PACs and echo not indicated, though can offer non-urgent MFM referral. Pt accepts this, aware she will hear from M for scheduling. Discussed elevated CLARISSA and potential etiology. Recommend repeat GTT, pt wishes to do this today. 1 week return JAYNE Hoffman ASSESSMENT assessment with Non-stress Test completed on 02/24/2024 at 36.6 weeks gestation for indicationof arrhythmia heart baseline: 140 bpm Variability: Moderate Decelerations: absent Accelerations: present Contractions: Present irregular, pt not feeling them NST start time: 1523 - time incorrect on EFM NST stop time: 1545 NST strip reviewed, interpreted, and approved by OB provider, JAYNE Hoffman . NST strip stored in [employer] documented in this encounter Plan of Treatment Upcoming Encounters Date Type Department Care Team (Late st Contact Info) Description 03/01/2024 3:45 PM EST Office Visit Gynecology/Obstetrics [facility] [address] [place] [address] Jerome Self MD [address] [place] [address] 11/11/2024 8:00 AM EDT Office Visit [facility] [place] [address] [facility] [place] [address] Tammy Stauffer MD [address] [facility] [place] [address] Scheduled Orders Name Type Priority Associated Diagnoses Orde r Schedule 50-G GESTATIONAL GLUCOSE, 1 HOUR Lab Routine Encounter for supervision of normal first in third trimester Polyhydramnios in third trimester complication, single or unspecified fetus Expected: 02/24/2024, Expires: 02/23/2025 MFM US MATERNAL 1ST FETUS Medical Imaging Routine Encounter for supervision of normal first in third trimester Advanced maternal age, primigravida, antepartum arrhythmia affecting , antepartum Polyhydramnios in third trimester complication, single or unspecified fetus Expected: 02/24/2024, Expires: 03/26/2025 Scheduled Referrals Name Type Priority Associated Diagnoses Orde r Schedule MATERNAL MEDICINE REFERRAL OP Referral Within 10 days (routine) Encounter for supervision of normal first in third trimester Advanced maternal age, primigravida, antepartum arrhythmia affecting , antepartum Polyhydramnios in third trimester complication, single or unspecified fetus Ordered: 02/24/2024 Health Maintenance Due Date Last Done Comments [...] Not on filedocumented as of this encounter Results * US PREG FOLLOW-UP EACH FETUS (02/24/2024 2:31 PM EST) Anatomical Region Laterality Modality Pelvis, Body Ultrasound 02/24/2024 2:39 PM EST Impressions 02/24/2024 2:39 PM EST IMPRESSION 1. Growth within normal limits utilizing SANTANA from initial scan. 2. Polyhydramnios 3. Vertex presentation. I have personally reviewed this examination and agree with the resident/fellow physician's interpretation. Narrative 02/24/2024 2:39 PM EST EXAM US PREG FOLLOW-UP EACH FETUS - 02/24/2024 2:31 pm HISTORY growth, S>D COMPARISON No Comparison. TECHNIQUE Sonographic examination performed. FINDINGS General : [place] Presentation: Vertex heart rate: 140 bpm CLARISSA: 26.2 cm which is greater than the 95th percentile for this stage of . The largest vertical pocket measures 8.7 cm. Placenta: Posterior, fundal Anatomy 4-chamber view: Seen Stomach: Seen Kidneys: Seen Bladder: Seen Biometry The previous study of 09/04/2023 estimated the date of delivery of 03/17/2024. Utilizing that date, current gestational age is 36 weeks 6 days. Biparietal diameter: 9.3 cm, 37w 6d Head circumference: 33.4 cm, 38w 1d Abdominal circumference: 33.0 cm, 36w 6d Femur length: 7.6 cm, 39w 0d Humeral length: 6.6 cm, 38w 2d HC/AC: 1.01, within normal limits EFW: 3280 g +/-479 g which is the 76th percentile. Utilizing the date of delivery obtained from the initial scan, growth of the BPD, HC, AC, femur and humerus is within normal limits. Procedure Note Davon Zhou MD - 02/24/2024 EXAM US PREG FOLLOW-UP EACH FETUS - 02/24/2024 2:31 pm HISTORY growth, S>D COMPARISON No Comparison. TECHNIQUE Sonographic examination performed. FINDINGS General : [place] Presentation: Vertex heart rate: 140 bpm CLARISSA: 26.2 cm which is greater than the 95th percentile for this stage ofpregnancy. The largest vertical pocket measures 8.7 cm. Placenta: Posterior, fundal Anatomy 4-chamber view: Seen Stomach: Seen Kidneys: Seen Bladder: Seen Biometry The previous study of 09/04/2023 estimated the date of delivery of03/17/2024. Utilizing that date, current gestational age is 36 weeks 6days. Biparietal diameter: 9.3 cm, 37w 6d Head circumference: 33.4 cm, 38w 1d Abdominal circumference: 33.0 cm, 36w 6d Femur length: 7.6 cm, 39w 0d Humeral length: 6.6 cm, 38w 2d HC/AC: 1.01, within normal limits EFW: 3280 g +/-479 g which is the 76th percentile. Utilizing the date of delivery obtained from the initial scan, growth ofthe BPD, HC, AC, femur and humerus is within normal limits. IMPRESSION IMPRESSION 1. Growth within normal limits utilizing SANTANA from initial scan. 2. Polyhydramnios 3. Vertex presentation. I have personally reviewed this examination and agree with the resident/fellow physician's interpretation. Malaika GODOY RAD ULTRASOUND Fin al Result documented in this encounter Visit Diagnoses Diagnosis Encounter for supervision of normal first in third trimester- Primary Supervision of normal first Advanced maternal age, primigravida, antepartum Elderly primigravida, antepartum Anxiety during History of respiratory syncytial virus (RSV) vaccination Uterine size date discrepancy Uterine size date discrepancy, antepartum condition or complication arrhythmia affecting , antepartum Abnormality in heart rate/rhythm, antepartum condition or complication Polyhydramnios in third trimester complication, single or unspecified fetus Encounter for supervision of normal first in third trimester Supervision of normal first Uterine size date discrepancy Uterine size date discrepancy, antepartum condition or complication documented in this encounter Care Teams Anthropology Professor Relationship Specialty Start Date End Date Tammy Stauffer MD [address] [place] [address], [place] [address] PCP - General Internal Medicine 04/16/19 documented as of this encounter
--- OUTSIDE RECORDS SUMMARY | 2024-03-11 15:17 | External Medical Summary | Summary of Care ---
Author Name Unknown Organization [facility] Address [address] [place] [address] Phone [phone] Care Team Providers Care Assistant Production Manager Name Role Phone Tammy Stauffer MD Primary Care Provider + Reason for Visit * Reason Onset Date Comments Advice 02/17/2024 Encounter Details Date Type Department Care Team (Late st Contact Info) Description 02/17/2024 Telephone Gynecology/Obstetrics [facility] [address] [place] [address] Rashid Contreras MD [address] [facility] [place] [address] Advice Allergies Active Allergy Reactions Criticality Noted Date Comments Cat Dander Other (Please comment) 07/13/2021 Itchy nose,watery eyes Grass Pollen(K-O-R-T-Swt Adam) Other (Please comment) 07/13/2021 Itchy nose,watery eyes Molds & Smuts Other (Please comment) 07/13/2021 Itchy nose,watery eyes documented as of this encounter (statuses as of 02/17/2024) Medications Vitamin 27-0.8 MG Oral Tablet Take by mouth. Active Venlafaxine HCl ER 75 MG Oral Capsule Extended Release 24 Hour (Effexor XR)Indications: INGRIS (generalized anxiety disorder) TAKE BY MOUTH 1 CAPSULE IN THE MORNING. DO NOT CUT, CRUSH OR CHEW. 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 Never true 10/20/2023 [place] Depression Scale Answer Date Recorded [place] Depression Scale Total 1 01/28/2024 The [...] Orientation Straight 08/28/2022 10 :14 AM EDT Travel History Travel Start Travel End [place] 01/16/2024 01/24/2024 documented as of this encounter Miscellaneous Notes * Telephone Encounter - Maddi Kowalski LPN - 02/17/2024 8:58 AM EST TC from patient, c/o right sciatic pain from hip down into leg. Making daily activities hard. Advised gentle stretching, Birthly stretching classes, tylenol, warm showers or chiropractor if she wishes. Patient voiced understanding. documented in this encounter Plan of Treatment Upcoming Encounters Date Type Department Care Team (Late st Contact Info) Description 02/20/2024 4:15 PM EST Office Visit Gynecology/Obstetrics [facility] [address] [place] [address] Jerome Self MD [address] [place] [address] 11/11/2024 8:00 AM EDT Office Visit General Internal Medicine [place] [address] [place] [address] Tammy Stauffer MD [address] [place] [address] Health Maintenance Due Date Last Done Comments [...] filedocumented as of this encounter Care Teams Assistant Production Manager Relationship Specialty Start Date End Date Tammy Stauffer MD [address] [place] [address] PCP - General Internal Medicine 04/16/19 documented as of this encounter
--- OUTSIDE RECORDS SUMMARY | 2024-03-11 15:17 | External Medical Summary | Summary of Care ---
Author Name Unknown Organization [facility] Address [address] [place] [address] Phone [phone] Care Team Providers Care Carton Gluing Machine Operator Name Role Phone Tammy Stauffer MD Primary Care Provider + Reason for Visit * Reason Comments Return Visit Encounter Details Date Type Department Care Team (Late st Contact Info) Description 01/08/2024 2:15 PM EDT Office Visit Gynecology/Obstetric s Elvin Gardner [address] [place] [address] Flor Pack CRNP [address] [place] [address] Advanced maternal age, primigravida, antepartum*; Anxiety during ; Encounter for supervision of normal first in third trimester Allergies Active Allergy Reactions Criticality Noted Date Comments Cat Dander Other (Please comment) 07/13/2021 Itchy nose,watery eyes Grass Pollen(K-O-R-T-Swt Adam) Other (Please comment) 07/13/2021 Itchy nose,watery eyes Molds & Smuts Other (Please comment) 07/13/2021 Itchy nose,watery eyes documented as of this encounter (statuses as of 01/08/2024) Medications Medication Sig Dispensed Refills Start Date End Date Status Vitamin 27-0.8 MG Oral Tablet Take by mouth. Active Venlafaxine HCl ER 75 MG Oral Capsule Extended Release 24 Hour (Effexor XR)Indications:INGRIS (generalized anxiety disorder) TAKE BY MOUTH 1 CAPSULE IN THE MORNING. DO NOT CUT, CRUSH OR CHEW. 30 Capsule 2 12/22/2023 Active documented as of this encounter (statuses as of 01/08/2024) Active Problems Problem Noted Date Diagnosed Date [...] as of this encounter (statuses as of 01/08/2024) Immunizations Name Administration Dates Next Due COVID-19 mRNA, LNP-s, No Pre serve, 2-Dose Series ([employer]) 03/01/2021,07/17/2020,06/27/2020 Hepatitis B, 20+ yrs 11/11/2023,10/10/2022,09/10 Seasonal [...] money to get more. Never true 10/20/2023 [place] Depression Scale Answer Date Recorded [place] Depression Scale Total 6 09/04/2023 The thought [...] on file documented as of this encounter Last Filed Vital Signs Vital Sign Reading Time Taken Comments Blood Pressure 112/64 01/08/2024 2:13 PM EDT Pulse - - Temperature - - Respiratory Rate - - Oxygen Saturation - - Inhaled Oxygen Concentration - - Weight 96.6 kg (213 lb) 01/08/2024 2:13 PM EDT Height - - Body Mass Index 34.64 12/25/2023 10:27 AM EDT documented in this encounter Progress Notes * Flor Pack CRNP - 01/08/2024 2:29 PM EDT 30w1d Having numbness/tingling in her hands, especially overnight. Suggested wrist splints for carpal tunnel. Travelling back home to [place] for a few weeks. Due date letter given for airline. No other concerns. Baby is active. No contractions, bleeding, LOF. JAYNE [place] * Marcella Obregon CMA - 01/08/2024 2:13 PM EDT 30w1d Bilateral arm and hand numbness/tingling. Mostly at night but occasionally through the day. Denies any swelling. documented in this encounter Plan of Treatment Upcoming Encounters Date Type Department Care Team (Late st Contact Info) Description 01/28/2024 11:30 AM EST [facility] [address] [place] [address] Malaika Cordova CRNP [address] [place] [address] 11/11/2024 8:00 AM EDT Office Visit General Internal Medicine State Claudia Islas [address] [place] [address] Tammy Stauffer MD [address] [place] [address] Health Maintenance Due Date Last Done Comments [...] in third trimester Supervision of normal first documented in this encounter Care Teams Carton Gluing Machine Operator Relationship Specialty Start Date End Date Tammy Stauffer MD [address] [place] [address] PCP - General Internal Medicine 04/16/19 documented as of this encounter
--- OUTSIDE RECORDS SUMMARY | 2024-03-11 15:17 | External Medical Summary ---
Author Name Unknown Address Unknown Organization K01:[facility] - [address] [place] [address] Laboratory Report Ordering Provider Test Date Status KAIA GRACIA 02/24/2024 16:14:27 Final Observation Date Value Abnormality Reference (Units ) Status Glucose [Moles/volume] in Serum or Plasma --1 hour post 50 g glucose PO 02/24/2024 16:14:27 115 70-129 (mg/dL) Final Performing Location [facility] - [address] [place] [address]
--- OUTSIDE RECORDS SUMMARY | 2024-03-11 15:17 | External Medical Summary | Summary of Care ---
Author Name Unknown Organization [facility] Address [address] [place] [address] Phone [phone] Care Team Providers Care Case Aide Name Role Phone Tammy Stauffer MD Primary Care Provider + Reason for Visit * Reason Comments Return Visit Encounter Details Date Type Department Care Team (Late st Contact Info) Description 02/11/2024 9:30 AM EST Office Visit Gynecology/Obstetric s Elvin Gardner [address] [place] [address] Flor Pack CRNP [address] [place] [address] Advanced maternal age, primigravida, antepartum*; Anxiety during [...] as of this encounter (statuses as of 02/11/2024) Medications Vitamin 27-0.8 MG Oral Tablet Take by mouth. Active Venlafaxine HCl ER 75 MG Oral Capsule Extended Release 24 Hour (Effexor XR)Indications: INGRIS (generalized anxiety disorder) TAKE BY MOUTH 1 CAPSULE IN THE MORNING. DO NOT CUT, CRUSH OR CHEW. 30 Capsule 2 12/22/2023 Active documented as of this encounter (statuses as of 02/11/2024) Active Problems Problem Noted Date Diagnosed Date [...] as of this encounter (statuses as of 02/11/2024) Immunizations Name Administration Dates Next Due COVID-19 mRNA, LNP-s, No Pre serve, 2-Dose Series ([employer]) 03/01/2021,07/17/2020,06/27/2020 Hepatitis B, 20+ yrs 11/11/2023,10/10/2022,09/10 RSV [...] money to buy more. Never true 10/20/19 Within the past 12 months, t he food you bought just didn't last and you didn't have money to get more. Never true 10/20/2023 [place] Depression Scale Answer Date Recorded [place] Depression Scale Total 1 01/28/2024 The thought [...] EDT Travel History Travel Start Travel End [place] 01/16/2024 01/24/2024 documented as of this encounter Last Filed Vital Signs Vital Sign Reading Time Taken Comments Blood Pressure 122/72 02/11/2024 9:28 AM EST Pulse - - Temperature - - Respiratory Rate - - Oxygen Saturation - - Inhaled Oxygen Concentration - - Weight 101.2 kg (223 lb 3.2 oz) 02/11/2024 9:28 AM EST Height - - Body Mass Index 36.3 12/25/2023 10:27 AM EDT documented in this encounter Progress Notes * Flor Pack CRNP - 02/11/2024 9:48 AM EST 35w Still with carpal tunnel, though feels it is a little better. No other concerns. Baby is active, no contractions, bleeding, LOF. JAYNE [place] * Marcella Obregon CMA - 02/11/2024 9:28 AM EST 35w0d Denies any concerns Labor instructions given documented in this encounter Plan of Treatment Upcoming Encounters Date Type Department Care Team (Late st Contact Info) Description 11/11/2024 8:00 AM EDT Office Visit General Internal Medicine [place] Claudia Islas [address] [place] [address] Tammy Stauffer MD [address] [place] [address] Health Maintenance Due Date Last Done Comments [...] vaccination documented in this encounter Care Teams Case Aide Relationship Specialty Start Date End Date Tammy Stauffer MD [address] [place] [address] PCP - General Internal Medicine 04/16/19 documented as of this encounter
--- OUTSIDE RECORDS SUMMARY | 2024-03-11 15:17 | External Medical Summary | Summary of Care ---
Author Name Unknown Organization [facility] Address [address] [place] [address] Phone [phone] Care Team Providers Care Salvage Engineering Technician Name Role Phone Tammy Stauffer MD Primary Care Provider + Reason for Visit * Reason Comments Outpatient Testing Encounter Details Date Type Department Care Team (Late st Contact Info) Description 02/24/2024 3:30 PM EST Laboratory Laboratory, [facility] [address] [place] [address] [facility] [address] [place] [address] Encounter for supervision of normal first in third trimester; Polyhydramnios in third trimester complication, single or [...] mRNA, LNP-s, No Pre serve, 2-Dose Series (.[employer]) 03/01/2021,07/17/2020,06/27/2020 Hepatitis B, 20+ yrs 11/11/2023,10/10/2022,09/10 RSV [...] money to get more. Never true 10/20/2023 [place] Depression Scale Answer Date Recorded [place] Depression Scale Total 1 01/28/2024 The thought [...] AM EDT documented as of this encounter Plan of Treatment Upcoming Encounters Date Type Department Care Team (Late st Contact Info) Description 03/01/2024 3:45 PM EST Office Visit Gynecology/Obstetrics [facility] [address] [place] [address] Jerome Self MD [address] [place] [address] 11/11/2024 8:00 AM EDT Office Visit General Internal Medicine [place] Claudia Islas [address] [place] [address] Tammy Stauffer MD 200 [facility] [place] [address] Pending Results Name Type Priority Associated Diagnoses Date /Time 50-G GESTATIONAL GLUCOSE, 1 HOUR Lab Routine Encounter for supervision of normal first in third trimester Polyhydramnios in third trimester complication, single or unspecified fetus 02/24/2024 4:14 PM EST Health Maintenance Due Date Last Done Comments [...] as of this encounter Visit Diagnoses Diagnosis Encounter for supervision of normal first in third trimester Supervision of normal first Polyhydramnios in third trimester complication, single or unspecified fetus documented in this encounter Care Teams Salvage Engineering Technician Relationship Specialty Start Date End Date Tammy Stauffer MD [address] [place] [address] PCP - General Internal Medicine 04/16/19 documented as of this encounter
--- OUTSIDE RECORDS SUMMARY | 2024-03-11 15:17 | External Medical Summary | Summary of Care ---
Author Name Unknown Organization [facility] Address [address] [place] [address] Phone [phone] Care Team Providers Care Parachutist/Combatant Diver Qualified Name Role Phone Tammy Stauffer MD Primary Care Provider + Reason for Visit * Reason Comments Return Visit Encounter Details Date Type Department Care Team (Late st Contact Info) Description 01/28/2024 11:30 AM EST Office Visit Gynecology/Obstetric s Elvin Gardner [address] [facility] [place] [address] BackMalaika eason CRNP [address] [facility] [place] [address] Encounter for supervision of normal first in third trimester*; Advanced maternal age, primigravida, antepartum; Anxiety during ; Need for RSV vaccination Allergies Active Allergy Reactions Criticality Noted Date Comments Cat Dander Other (Please comment) 07/13/2021 Itchy nose,watery eyes Grass Pollen(K-O-R-T-Swt Adam) Other (Please comment) 07/13/2021 Itchy nose,watery eyes Molds & Smuts Other (Please comment) 07/13/2021 Itchy nose,watery eyes documented as of this encounter (statuses as of 01/28/2024) Medications Medication Sig Dispensed Refills Start Date End Date Status Vitamin 27-0.8 MG Oral Tablet Take by mouth. Active Venlafaxine HCl ER 75 MG Oral Capsule Extended Release 24 Hour (Effexor XR)Indications:INGRIS (generalized anxiety disorder) TAKE BY MOUTH 1 CAPSULE IN THE MORNING. DO NOT CUT, CRUSH OR CHEW. 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 Never true 10/20/2023 [place] Depression Scale Answer Date Recorded [place] Depression Scale Total 6 09/04/2023 The thought [...] file Not on file Not on file Travel History Travel Start Travel End [place] 01/16/2024 01/24/2024 documented as of this encounter Last Filed Vital Signs Vital Sign Reading Time Taken Comments Blood Pressure 118/70 01/28/2024 11:25 AM EST Pulse - - Temperature - - Respiratory Rate - - Oxygen Saturation - - Inhaled Oxygen Concentration - - Weight 99.3 kg (219 lb) 01/28/2024 11:25 AM EST Height - - Body Mass Index 35.62 12/25/2023 10:27 AM EDT documented in this encounter Progress Notes * Malaika Cordova CRNP - 01/28/2024 11:38 AM EST 33w0d Overall well, baby is active. She is enjoying tracking his movements. Has not had any contractions;denies leaking/bleeding. Completed some childbirth classes. Will look into pediatricians. Accepts RSV vaccination. Having carpal tunnel discomfort; seeing PT. Reviewed comfort measures. 2 week return JAYNE Hoffman * Nona Red LPN - 01/28/2024 11:25 AM EST 33w0d Denies vaginal bleeding/rom + movement Rsv today documented in this encounter Nursing Notes * Nona Red LPN - 01/28/2024 11:41 AM EST Patient here for RSV injection. Patient doing well no complaints. Injection given IM as ordered. Patient tolerated well. Patient to follow up as directed. Patient instructed to call if any complications. Patient verbalized understanding of instructions given. Injection site: Left Deltoid Medication Source: Dispensed stock medication documented in this encounter Plan of Treatment Upcoming Encounters Date Type Department Care Team (Late st Contact Info) Description 02/11/2024 9:30 AM EST Office Visit Gynecology/Obstetrics Elvin Gardner [address] [place] [address] Flor Pack CRNP [address] [place] [address] 11/11/2024 8:00 AM EDT Office Visit General Internal Medicine [place]las [address] [facility] [place] [address] Tammy Stauffer MD 200 [facility] [place] [address] Health Maintenance Due Date Last Done Comments [...] primigravida, antepartum Elderly primigravida, antepartum Anxiety during Need for RSV vaccination Need for prophylactic vaccination and inoculation against respiratory syncytial virus documented in this encounter Care Teams Parachutist/Combatant Diver Qualified Relationship Specialty Start Date End Date Tammy Stauffer MD 200 [facility] [place] [address] PCP - General Internal Medicine 04/16/19 documented as of this encounter
--- OUTSIDE RECORDS SUMMARY | 2024-03-11 15:18 | External Medical Summary | Summary of Care ---
Author Name Unknown Organization [facility] Address [address] [place] [address] Phone [phone] Care Team Providers Care Design Eng Name Role Phone Tammy Stauffer MD Primary Care Provider + Reason for Visit * Reason Onset Date Comments Follow Up 10/30/2023 Carrier Screenin g: Familial Variants Encounter Details Date Type Department Care Team (Late st Contact Info) Description 10/30/2023 Telephone Talent Acquisition Relationship Manager Obstetrics Maternal Medicine, [place] [address], [place] [phone] Althea Moreira, [place] [address], [place] [phone] Follow Up (Carrier Screening: Familial Negrita... Allergies Active Allergy Reactions Criticality Noted Date Comments Cat Dander Other (Please comment) 07/13/2021 Itchy nose,watery eyes Grass Pollen(K-O-R-T-Swt Adam) Other (Please comment) 07/13/2021 Itchy nose,watery eyes Molds & Smuts Other (Please comment) 07/13/2021 Itchy nose,watery eyes documented as of this encounter (statuses as of 10/30/2023) Medications Medication Sig Dispensed Refills Start Date End Date Status Vitamin 27-0.8 MG Oral Tablet Take by mouth. Active Venlafaxine HCl ER 75 MG Oral Capsule Extended Release 24 Hour (Effexor XR)Indications:INGRIS (generalized anxiety disorder) TAKE BY MOUTH 1 CAPSULE IN THE MORNING. DO NOT CUT, CRUSH OR CHEW. 90 Capsule 09/29/2023 Active documented as of this encounter (statuses as of 10/30/2023) Active Problems Problem Noted Date Diagnosed Date Screening for genetic disease carrier status 03/2023 [...] as of this encounter (statuses as of 10/30/2023) Immunizations Name Administration Dates Next Due COVID-19 mRNA, LNP-s, No Pre serve, 2-Dose Series ([employer]) 03/01/2021,07/17/2020,06/27/2020 Hepatitis B, 20+ yrs 10/10/2022,09/10/2022 Seasonal Influenza, PF, 6 M & above, IM , (FluLaval or Fluzone) 02/18/2019 TDAP (age 10 and older)(Boostrix) 10/10/2020 documented as of this encounter Social History Tobacco Use Types Packs/Day Years Used Date Smoking Tobacco: Never Passive Smoke Exposure: Never Smokeless Tobacco: Never Alcohol Use Standard Drinks/Week Comments Not Currently 0 (1 standard drink = 0.6 oz pur e alcohol) on weekends PHQ-2 Answer Date Recorded PHQ Adult Total Score 0 09/10/2022 Hunger Vital Sign Answer Date Recorded Within the past 12 months, y ou worried that your food would run out before you got the money to buy more. Never true 10/20/19 24 Within the past 12 months, t he food you bought just didn't last and you didn't have money to get more. Never true 10/20/2023 [place] Depression Scale Answer Date Recorded [place] Depression Scale Total 6 09/04/2023 The thought [...] file Travel History Travel Start Travel End [place] 10/10/2023 10/26/2023 documented as of this encounter Miscellaneous Notes * Telephone Encounter - Althea Moreira, [place] - 10/30/2023 1:36 PM EDT Sent a message to Angie Savage CGC, at [facility] to confirm that both of the familial variants for MPS1 would be able to be detected by the carrier screening the patient completed. This was Angie's response: Following up on this case... I heard from the lab directors regarding the IDUA variants seen in case [id number]'s cousin. Both the c.979G>C and the c.208C>T variants are detectable and are classified as Pathogenic so they would have been reported. If you would prefer an amended report with this specified for case [id number], please complete the attached known familial variant/VUS form - feel free to email it back to me directly and I will get itsquared away. I requested that the GCAs fill out the form to receive an amended report. Sent patient a message to update her. Althea Moreira, [facility] [place] [facility] Licensed, Certified Genetic Counselor Maternal Medicine [facility] Medicine [facility] [phone] documented in this encounter Plan of Treatment Upcoming Encounters Date Type Department Care Team (Late st Contact Info) Description 11/03/2023 9:45 AM EDT Imaging Radiology [facility] [address] [facility] [place] [address] 11/03/2023 11:30 AM EDT Office Visit Gynecology/Obstetrics [facility] [address] [facility] [place] [address] Cass Roque PA-C 132 [facility] [place] [address] 11/11/2023 2:40 PM EDT Office Visit General Internal Medicine [place] [address] [place] [address] Tammy Stauffer MD [address] [place] [address] 11/13/2023 8:40 AM EDT Office Visit General Internal Medicine [place] Claudia Islas [address] [place] [address] Tammy Stauffer MD [address] [facility] [place] [address] Health Maintenance Due Date Last Done Comments HPV/Co-Test 2018 Hepatitis B Vaccine (3 of 3 - 19+ 3-dose series) 03/12/2023 10/10/2022, 09/10/2022 Depression Monitoring 09/11/2023 09/10/2022 Influenza Vaccine (FLU shot) (#1) 2023 02/18/2019, 02/18/2019 Cervical Cancer Screening 07/13/2024 Pap Smear 07/13/2024 07/13/2021 Diabetes Screening 09/10/2025 09/10/2022, 07/13/2021 DTaP,Tdap,and Td Vaccines (2 - Td or Tdap) 10/10/2030 10/10/2020 COVID-19 Vaccine Completed 02/11/2023, 11/2020, 07/17/2020, Additional history exists HPV (Gardasil) Vaccine Aged Out No lo [...] filedocumented as of this encounter Care Teams Design Eng Relationship Specialty Start Date End Date Tammy Stauffer MD [address] [place] [address] PCP - General Internal Medicine 04/16/19 documented as of this encounter
--- OUTSIDE RECORDS SUMMARY | 2024-03-11 15:18 | External Medical Summary | Summary of Care ---
Author Name Unknown Organization [facility] Address [address] [place] [address] Phone [phone] Care Team Providers Care Marketing Sales Supervisor Name Role Phone Tammy Stauffer MD Primary Care Provider + Reason for Visit * Reason Onset Date Comments MyCode Consent 11/03/2023 Encounter Details Date Type Department Care Team (Late st Contact Info) Description 11/03/2023 Orders Only Outcomes Research Department [address] [place], [place] [phone] Minoo Cruz CHRA MyCode Research Other*[id number]* Allergies Active Allergy Reactions Criticality Noted Date Comments Cat Dander Other (Please comment) 07/13/2021 Itchy nose,watery eyes Grass Pollen(K-O-R-T-Swt Adam) Other (Please comment) 07/13/2021 Itchy nose,watery eyes Molds & Smuts Other (Please comment) 07/13/2021 Itchy nose,watery eyes documented as of this encounter (statuses as of 11/03/2023) Medications Medication Sig Dispensed Refills Start Date End Date Status Vitamin 27-0.8 MG Oral Tablet Take by mouth. Active Venlafaxine HCl ER 75 MG Oral Capsule Extended Release 24 Hour (Effexor XR)Indications:INGRIS (generalized anxiety disorder) TAKE BY MOUTH 1 CAPSULE IN THE MORNING. DO NOT CUT, CRUSH OR CHEW. 90 Capsule 09/29/2023 Active documented as of this encounter (statuses as of 11/03/2023) Active Problems Problem Noted Date Diagnosed Date [...] as of this encounter (statuses as of 11/03/2023) Immunizations Name Administration Dates Next Due COVID-19 mRNA, LNP-s, No Pre serve, 2-Dose Series ([employer]) 03/01/2021,07/17/2020,06/27/2020 Hepatitis B, 20+ yrs 10/10/2022,09/10/2022 Seasonal [...] money to get more. Never true 10/20/2023 [place] Depression Scale Answer Date Recorded [place] Depression Scale Total 6 09/04/2023 The thought [...] No 10/20/2023 Does the household have a [place] service unit[place] source of income? (Household - for ages [...] file Travel History Travel Start Travel End [place] 10/10/2023 10/26/2023 documented as of this encounter Progress Notes * Minoo Cruz CHRA - 11/03/2023 10:44 AM EDT [employer] Consent Documentation Melisa Graves provided consent/authorization to participate in the [employer] Project. documented in this encounter Plan of Treatment Upcoming Encounters Date Type Department Care Team (Late st Contact Info) Description 11/03/2023 11:30 AM EDT Office Visit Gynecology/Obstetrics Elvin Gardner [address] [place] [address] Cass Roque PA-C [address] [place] [address] Arrived 11/11/2023 2:40 PM EDT Office Visit General Internal Medicine [facility] [address] [place] [address] Tammy Stauffer MD [address] [facility] [place] [address] 11/13/2023 8:40 AM EDT Office Visit General Internal Medicine [facility] [address] [place] [address] Tammy Stauffer MD [address] [facility] [place] [facility] [place] [address] Scheduled Orders Name Type Priority Associated Diagnoses Orde r Schedule MYCODE INITIAL ADULT Lab Routine MyCode Research Other*[id number] Expected: 11/03/2023 (Approximate), Expires: 11/22/2024 Health Maintenance Due Date Last Done Comments [...] as of this encounter Visit Diagnoses Diagnosis MyCode Research Other*[id number]- Primary documented in this encounter Care Teams Marketing Sales Supervisor Relationship Specialty Start Date End Date Tammy Stauffer MD 200 [facility] [place] [address] PCP - General Internal Medicine 04/16/19 documented as of this encounter
--- OUTSIDE RECORDS SUMMARY | 2024-03-11 15:18 | External Medical Summary | Summary of Care ---
Author Name Unknown Organization [facility] Address [address] [place] [address] Phone [phone] Care Team Providers Care Manager Decision Support Name Role Phone Tammy Stauffer MD Primary Care Provider + Reason for Visit * Reason Comments Return Visit Encounter Details Date Type Department Care Team (Late st Contact Info) Description 11/03/2023 11:30 AM EDT Office Visit Gynecology/Obstetric s Elvin Gardner [address] [facility] [place] [address] Cass Roque PA-C [address] [facility] [address] Encounter for supervision of normal first in second trimester*; Advanced maternal age, primigravida, antepartum; Anxiety during Allergies Active Allergy Reactions Criticality Noted Date [...] mRNA, LNP-s, No Pre serve, 2-Dose Series ([employer]) 03/01/2021,07/17/2020,06/27/2020 Hepatitis B, 20+ yrs 10/10/2022,09/10/2022 Seasonal [...] money to get more. Never true 10/20/2023 [place] Depression Scale Answer Date Recorded [place] Depression Scale Total 6 09/04/2023 The thought [...] file Travel History Travel Start Travel End [place] 10/10/2023 10/26/2023 documented as of this encounter Last Filed Vital Signs Vital Sign Reading Time Taken Comments Blood Pressure 120/68 11/03/2023 11:15 AM EDT Pulse - - Temperature - - Respiratory Rate - - Oxygen Saturation - - Inhaled Oxygen Concentration - - Weight 88.2 kg (194 lb 6.4 oz) 11/03/2023 11:15 AM EDT Height - - Body Mass Index 32.35 10/02/2023 9:00 AM EDT documented in this encounter Progress Notes * Cass Roque PA-C - 11/03/2023 11:28 AM EDT 20w5d Anatomy today, final report pending at time of appointment. Had downstairs in radiology. Some headaches, relieved with Tylenol and fluids. Denies VB, LOF, contractions. + quickening. MSAFP negative. RTC in 4 weeks Cass Roque PA-C * Marcella Obregon MED ASSIST - 11/03/2023 11:15 AM EDT 20w5d + headaches, manageable with Tylenol and extra water intake. No new concerns documented in this encounter Plan of Treatment Upcoming Encounters Date Type Department Care Team (Late st Contact Info) Description 11/11/2023 2:40 PM EDT Office Visit General Internal Medicine [facility] [address] [place] [address] Tammy Stauffer MD [address] [place] [address] 11/13/2023 8:40 AM EDT Office Visit General Internal Medicine [facility] [address] [place] [address] [address] Tammy Stauffer MD [address] [place] [address] 12/01/2023 9:00 AM EDT Office Visit Gynecology[facility] [address] [facility] [place] [address] Cass Roque PA-C [address] [place] [address] Health Maintenance Due Date Last Done Comments [...] for supervision of normal first in second trimester- Primary Supervision of normal first Advanced maternal age, primigravida, antepartum Elderly primigravida, antepartum Anxiety during documented in this encounter Care Teams Manager Decision Support Relationship Specialty Start Date End Date Tammy Stauffer MD 200 [facility] [place] [address] PCP - General Internal Medicine 04/16/19 documented as of this encounter
--- OUTSIDE RECORDS SUMMARY | 2024-03-11 15:18 | External Medical Summary | Summary of Care ---
Author Name Unknown Organization [facility] Address [address] [place] [address] Phone [phone] Care Team Providers Care Director Property Name Role Phone Tammy Stauffer MD Primary Care Provider + Reason for Referral * Evaluate & Treat - Unlimited Visits (Within 30 days (routine)) - Authorized Specialty Diagnoses / Procedures Referred By Colton bazzi Referred To Contact Physical Therapy / Physical Medicine And Rehab Diagnoses Encounter for supervision of normal first in third trimester Flor Pack CRNP [address] [place] [address] Referral ID Status Reason Start Date Expiration Date Visits Requested Visits Authorized [id number] Authorized Specialty Services Required 12/25/2023 999 999 Question Answer Referral Priority Within 30 days (routine) Where should this appointment be scheduled? External Comments therapy Reason for Visit * Reason Comments Return Visit Encounter Details Date Type Department Care Team (Late st Contact Info) Description 12/25/2023 10:45 AM EDT Office Visit Gynecology/Obstetric s [facility] [address] [place] [address] Flor Pack CRNP [address] [place] [address] Encounter for supervision of normal first in third trimester*; Advanced maternal age, primigravida, antepartum; Anxiety during ; Need for uaahtpqwkl-xzpiaxm-kz rtussis (Tdap) vaccine Allergies Active Allergy Reactions Criticality Noted Date [...] mRNA, LNP-s, No Pre serve, 2-Dose Series ([employer]) 03/01/2021,07/17/2020,06/27/2020 Hepatitis B, 20+ yrs 11/11/2023,10/10/2022,09/10 Seasonal [...] money to get more. Never true 10/20/2023 [place] Depression Scale Answer Date Recorded [place] Depression Scale Total 6 09/04/2023 The thought [...] Sign Reading Time Taken Comments Blood Pressure 114/62 12/25/2023 10:27 AM EDT Pulse - - Temperature - - Respiratory Rate - - Oxygen Saturation - - Inhaled Oxygen Concentration - - Weight 95.3 kg (210 lb) 12/25/2023 10:27 AM EDT Height 167 cm (5' 5.75") 12/25/2023 10:27 AM EDT Body Mass Index 34.15 12/25/2023 10:27 AM EDT documented in this encounter Progress Notes * Flor Pack CRNP - 12/25/2023 10:43 AM EDT 28w1d Questioning weight- gained a good amount since her last visit. Is eating healthy, exercising a few times a week. Would like referral to PT. No other concerns. +FM. No contractions or bleeding. Glucola, TDAP today. JAYNE Toledo documented in this encounter Nursing Notes * Maddi Kowalski LPN - 12/25/2023 11:04 AM EDT Patient here for tdap injection. Patient doing well no complaints. Injection given IM as ordered. Patient tolerated well. Patient to follow up as directed. Patient instructed to call if any complications. Patient verbalized understanding of instructions given and her follow up appt for JOSE Injection site: Left Deltoid Medication Source: Dispensed stock medication * Maddi Kowalski LPN - 12/25/2023 10:30 AM EDT 28w1d Denies concerns Would like referral to pt Completing labs today, tdap. documented in this encounter Plan of Treatment Upcoming Encounters Date Type Department Care Team (Late st Contact Info) Description 01/08/2024 2:15 PM EDT Office Visit Gynecology/Obstetrics [facility] [address] [place] [address] Flor Pack CRNP [address] [place] [address] 11/11/2024 8:00 AM EDT Office Visit General Internal Medicine [address] [facility] [place] [address] Tammy Stauffer MD [address] [place] [id number] Scheduled Referrals Name Type Priority Associated Diagnoses Orde r Schedule PHYSICAL THERAPY REFERRAL OP Referral Within 30 days (routine) Encounter for supervision of normal first in third trimester Ordered: 12/25/2023 Health Maintenance Due Date Last Done Comments [...] Elderly primigravida, antepartum Anxiety during Need for zbnkrimnvl-wpnkgtb-kirtrjnoj (Tdap) vaccine Need for prophylactic vaccination with combined fnyemughwq-indjcee-umzaqybfh (DTP) vaccine documented in this encounter Care Teams Director Property Relationship Specialty Start Date End Date Tammy Stauffer MD [address] [place] [address] PCP - General Internal Medicine 04/16/19 documented as of this encounter
--- OUTSIDE RECORDS SUMMARY | 2024-03-11 15:18 | External Medical Summary | Summary of Care ---
Author Name Unknown Organization [facility] Address [address] [place] [address] Phone [phone] Care Team Providers Care Balancer Scale Name Role Phone Tammy Stauffer MD Primary Care Provider + Reason for Visit * Reason Onset Date Comments Test Results 10/23/2023 Horizon Carrier Screening Encounter Details Date Type Department Care Team (Late st Contact Info) Description 10/23/2023 Telephone Armored Transport Service Manager Obstetrics [facility] [place] [address] [place] [address] Gayla Og CHRA Test Results (Horizon Carrier Screening) Allergies Active Allergy Reactions Criticality Noted Date [...] Date Screening for genetic disease carrier status 08/ 03/2023 Overview: Expanded carrier screening for 600 [...] mRNA, LNP-s, No Pre serve, 2-Dose Series ([employer]) 03/01/2021,07/17/2020,06/27/2020 Hepatitis B, 20+ yrs 10/10/2022,09/10/2022 Seasonal [...] money to get more. Never true 10/20/2023 [place] Depression Scale Answer Date Recorded [place] Depression Scale Total 6 09/04/2023 The thought [...] No 10/20/2023 Does the household have a [facility] source of income? (Household - for ages [...] file Travel History Travel Start Travel End [place] 10/10/2023 10/26/2023 documented as of this encounter Miscellaneous Notes * Telephone Encounter - Gayla Og CHRA - 10/23/2023 2:41 PM EDT Melisa Returned my call. We went over her carrier screening results. Respectfully, Gayla Og Genetic Counseling Reinforcing Steel Erector Maternal Medicine/ Medical Genetics For further MFM questions call For further Medical Genetics questions call * Telephone Encounter - Gayla Og CHRA - 10/23/2023 1:14 PM EDT Called patient to review her carrier screening results. The patient is NEGATIVE. No answer left voicemail and sent MYG. Respectfully, Gayla Og Genetic Counseling Reinforcing Steel Erector Maternal Medicine/ Medical Genetics For further MFM questions call For further Medical Genetics questions call documented in this encounter Plan of Treatment Upcoming Encounters Date Type Department Care Team (Late st Contact Info) Description 11/03/2023 9:45 AM EDT Imaging Radiology [facility] [address] [place] [address] 11/03/2023 11:30 AM EDT Office Visit Gynecology/Obstetrics [facility] [address] [place] [address] Cass Roque PA-C [address] [place] [address] 11/11/2023 2:40 PM EDT Office Visit General Internal Medicine [facility] [address] [place] [address] Tammy Stauffer MD [address] [place] [address] 11/13/2023 8:40 AM EDT Office Visit General Internal Medicine [address] [place] [address] [place] [address] Tammy Stauffer MD [address] [place] [address] Health Maintenance Due Date Last Done Comments [...] filedocumented as of this encounter Care Teams Balancer Scale Relationship Specialty Start Date End Date Tammy Stauffer MD [address] [facility] [place] [address] PCP - General Internal Medicine 04/16/19 documented as of this encounter
--- OUTSIDE RECORDS SUMMARY | 2024-03-11 15:18 | External Medical Summary | Summary of Care ---
Author Name Unknown Organization [facility] Address [address] [place] [address] Phone [phone] Care Team Providers Care Hemmer Lockstitch Name Role Phone Tammy Stauffer MD Primary Care Provider + Reason for Visit * Reason Comments Physical-Exam Yearly physical exam . Discussed anti-anxiety medication with FINANCIAL COORDINATOR. Wants to inquire about COVID/flu - baby is due is February. Encounter Details Date Type Department Care Team (Late st Contact Info) Description 11/11/2023 2:40 PM EDT Office Visit General Internal Medicine [facility] [place] [address] [facility] [address] Tammy Stauffer MD 200 [place] [address] Routine medical exam*; INGRIS (generalized anxiety disorder); Vaccine for viral hepatitis Allergies Active Allergy Reactions Criticality Noted Date Comments Cat Dander Other (Please comment) 07/13/2021 Itchy nose,watery eyes Grass Pollen(K-O-R-T-Swt Adam) Other (Please comment) 07/13/2021 Itchy nose,watery eyes Molds & Smuts Other (Please comment) 07/13/2021 Itchy nose,watery eyes documented as of this encounter (statuses as of 11/11/2023) Medications Medication Sig Dispensed Refills Start Date End Date Status Vitamin 27-0.8 MG Oral Tablet Take by mouth. Active Venlafaxine HCl ER 75 MG Oral Capsule Extended Release 24 Hour (Effexor XR)Indications:INGRIS (generalized anxiety disorder) TAKE BY MOUTH 1 CAPSULE IN THE MORNING. DO NOT CUT, CRUSH OR CHEW. 90 Capsule 09/29/2023 Active documented as of this encounter (statuses as of 11/11/2023) Active Problems Problem Noted Date Diagnosed Date [...] as of this encounter (statuses as of 11/11/2023) Immunizations Name Administration Dates Next Due COVID-19 mRNA, LNP-s, No Pre serve, 2-Dose Series ([employer]) 03/01/2021,07/17/2020,06/27/2020 Hepatitis B, 20+ yrs 11/11/2023,10/10/2022,09/10 Seasonal [...] money to get more. Never true 10/20/2023 [place] Depression Scale Answer Date Recorded [place] Depression Scale Total 6 09/04/2023 The thought [...] file Travel History Travel Start Travel End [place] 10/10/2023 10/26/2023 documented as of this encounter Last Filed Vital Signs Vital Sign Reading Time Taken Comments Blood Pressure 112/64 11/11/2023 2:39 PM EDT Pulse 97 11/11/2023 2:39 PM EDT Temperature 36.7 C (98.1 F) 11/11/2023 2:39 PM ED T Respiratory Rate 16 11/11/2023 2:39 PM EDT Oxygen Saturation 98% 11/11/2023 2:39 PM EDT Inhaled Oxygen Concentration - - Weight 89.7 kg (197 lb 12.8 oz) 11/11/2023 2:39 PM EDT Height 167 cm (5' 5.75") 11/11/2023 2:39 PM EDT Body Mass Index 32.17 11/11/2023 2:39 PM EDT documented in this encounter Patient Instructions * Patient Instructions* Melvin Dash, MED ASSIST - 11/11/2023 3:24 PM EDT Vaccination is the best way to protect against hepatitis B. Most people should get 3 doses of hepatitis B vaccine. If you miss a dose or get behind schedule, get the next dose as soon as you can. There is no need to start over. Age for Hepatitis B Vaccine: INFANTS: *Infants whose mother HAS hepatitis B virus: #1 dose- at 2 month visit #2 dose- 1 month after dose #1 #3 dose- 7 months of age (at least 5 months after dose #1) *Infants whose mother does NOT have hepatitis B virus: #1 dose- - 2 months of age #2 dose- 1-4 months of age (at least 1 month after dose #1) #3 dose- 6-18 months of age ( at least 2 months after dose #2) *Other recommended age groups #1 dose- Now #2 dose- 1-2 months after dose #1 #3 dose- 4-6 months after dose #1 WHAT ARE THE RISKS FROM HEPATITIS B VACCINE? Hepatitis B vaccine is one of the safest vaccines. Getting the disease is much more likely to causeserious illness than getting the vaccine. MILD PROBLEMS: - soreness where the shot was given. - mild to moderate fever Acetaminophen or Ibuprofen (not aspirin) may be used to reduce fever and pain. SEVERE PROBLEMS: - serious allergic reaction is very rare. WHAT TO DO IF THERE IS A SERIOUS REACTION: - Call a doctor or get the person to a doctor right away. - Ask your doctor, nurse, or health department to file a Vaccine Adverse Event Report form. To filea report yourself you can call: (toll-free) LET YOUR DOCTOR KNOW IMMEDIATELY IF YOU HAVE DIFFICULTY BREATHING OR SWALLOWING, EXPERIENCE ITCHING OF FEET OR HANDS, HAVE SWELLING OF EYES, FACE OR INSIDE OF NOSE. documented in this encounter Progress Notes * Melvin Dash MED ASSIST - 11/11/2023 3:24 PM EDT The patient has been properly identified by confirmation of name and date of . Hepatitis B VIS given to patient. Hepatitis B ordered and Provider aware. OLGA Starr Time Out Procedure Performed: Yes Patient Identified (Ask Name/Date of ): Yes Immunization(s) verified: Yes, VIS Sheet(s) given: Yes Verified Side and Site: Yes Verified Shot(s) with Patient: Yes OLGA Starr * Tammy Stauffer MD - 11/11/2023 3:05 PM EDT HPI: Melisa Graves is a 33 year old female who presents with: Chief Complaint Patient presents with Physical-Exam Yearly physical exam. Discussed anti-anxiety medication with FINANCIAL COORDINATOR. Wants to inquire about COVID/flu - baby is due is February. Patient is here for the physical. Pt is and is due on 03/17/24. Follows with TABLEMAN and Dr. Self at [facility]. She has been on Effexor for 3 yrs and has been helping and as per OBG, was told to continue if it helps. Feels fine emotionally. Discussed getting last shot of Hep B today, flu shot in fall. She will think of Covid vaccine, not dana eyet. Chart reviewed with the patient including current meds, last labs and HM. No acute event since we saw patient last time including no recent fall or injuries. Denies any chestpain/sob/palpitation/swealling in the legs. Denies any cough/sob/wheezing/chestpain. Denies nausea,vomiting, diarrhoea, constipation, abdominal pain or blood in stool. Denies heart burn. Has good appetite. No urinary symptoms. Denies any anxiety or depression. Patient Active Problem List Diagnosis Chronic anxiety Mild episode of recurrent major depressive disorder (HCC) Advanced maternal age, primigravida, antepartum Anxiety during Supervision of normal first Screening for genetic disease carrier status Mucopolysaccharidosis (HCC) Current Outpatient Medications Medication Sig Dispense Refill Vitamin 27-0.8 MG Oral Tablet Take by mouth. Venlafaxine HCl ER 75 MG Oral Capsule Extended Release 24 Hour (Effexor XR) TAKE BY MOUTH 1 CAPSULEIN THE MORNING. DO NOT CUT, CRUSH OR CHEW. 90 Capsule 0 No current facility-administered medications for this visit. The patient's medication list was reviewed and updated as needed. Review of patient's allergies indicates: Allergen Reactions Cat Dander Other (Please comment) Itchy nose,watery eyes Grass Pollen(K-O-R-T-Swt Adam) Other (Please comment) Itchy nose,watery eyes Molds & Smuts Other (Please comment) Itchy nose,watery eyes Past Medical History: Diagnosis Date Anxiety Screening for genetic disease carrier status 10/23/2023 Social History Socioeconomic History Marital status: Tobacco Use Smoking status: Never Passive exposure: Never Smokeless tobacco: Never Vaping Use Vaping status: Never Used Substance and Sexual Activity Alcohol use: Not Currently Comment: on weekends Drug use: Never Sexual activity: Yes Social Determinants of Health Financial Resource Strain: Low Risk (10/20/2023) Financial Resource Strain Do you have any trouble paying for your medications, or do you think you might in the future? (Adult - for ages 18 years and over): No Food Insecurity: No Food Insecurity (10/20/2023) Food Insecurity Do you need food for this week? (Adult - for ages 18 years and over): No Transportation Needs: No Transportation Needs (10/20/2023) Transportation Needs Do you have trouble getting a ride to medical visits or work? (Adult - for ages 18 years and over):Never True Has lack of transportation kept you from medical appointments, meetings, work, or from getting things needed for daily living? Check all that apply. (Adult - for ages 18 years and over): No Social Connections: Socially Integrated (10/20/2023) Social Connections How often do you feel lonely or isolated from those around you? (Adult - for ages 18 years and over): Rarely Housing Stability: Low Risk (10/20/2023) Housing Stability Do you currently live in a correction or have no steady place to sleep at night? (Adult - for ages 18 years and over): No Do you think you are at risk of becoming homeless? (Adult - for ages 18 years and over): No Are you homeless or worried that you might be in the future? (Adult - for ages 18 years and over): No Family History Problem Relation Name Age of Onset Neurological Disorder Mother TIA Skin cancer Mother Other (TIA) Mother Mental Disorder Sister eating disorder Heart Disorder Grandmother (Paternal) ppm, ami Heart Disorder Grandfather (Paternal) Heart disease Grandfather (Paternal) from [place] at 75 All system negative except as per hpi. OBJECTIVE: BP 112/64 | Pulse 97 | Temp 36.7 C (98.1 F) (Tympanic) | Resp 16 | Ht 1.67 m (5' 5.75") | Wt 89.7 kg (197 lb 12.8 oz) | LMP (LMP Unknown) Comment: unknown- thinks June sometime | SpO2 98% | BMI 32.17 kg/m | BSA 2.04 m PHYSICAL EXAM: HEENT: PERRLA, EOMI, anicteric sclera, b/l tympanic membrane is pearly white, no erythema, no pharyngeal erythema, no lymphadenopathy, neck supple CVS: RRR, no murmurs, rubs or gallops, s1 s 2normal. RESP: clear to auscultation, no wheezing or crackles ABD: soft, NT/ND EXT: no edema, cyanosis, peripheral pulses palpable bilaterally No large joint swelling, no redness, range of motion normal. Skin normal. Gait normal. Mood stable No focal weakness ASSESSMENT AND PLAN: Routine medical exam (Primary) Regular diet and exercise discussed with the patient. Importance of doing exercise 3 times a week for 30 minutes discussed. Takes daily vitamins. Taking OTC vitamins and Calcium with vitamin D discussed with the patient. Pt does wear a seat belt and sees Offset Press Operator Helper and Dentist every year. Fall precautions advised to the patient. Importance of drinking more water atleast 6-8 glasses per day discussed with the patient. INGRIS (generalized anxiety disorder) Stable on effexor. Follow Up: Return in about 1 year (around 11/10/2024) for Return with Physician. | For: Return with Physician Tammy Stauffer MD documented in this encounter Nursing Notes * Melvin Dash MED ASSIST - 11/11/2023 2:42 PM EDT Chief Complaint Patient presents with Physical-Exam Yearly physical exam. Discussed anti-anxiety medication with FINANCIAL COORDINATOR. Wants to inquire about COVID/flu - baby is due is February. documented in this encounter Miscellaneous Notes * Addendum Note - Melvin Dash MED ASSIST - 11/11/2023 3:26 PM EDT Addended by: MELVIN DASH on: 11/11/2023 03:26 PM Modules accepted: Orders documented in this encounter Plan of Treatment Upcoming Encounters Date Type Department Care Team (Late st Contact Info) Description 11/13/2023 8:40 AM EDT Office Visit General Internal Medicine [facility] [address] [place] [address] Tammy Stauffer MD [address] [facility] [place] [address] 11/17/2023 9:45 AM EDT Imaging Radiology [facility] [address] [facility] [address] [facility] [place] [address] 12/01/2023 9:00 AM EDT Office Visit Gynecology/Obstetrics [facility] [address] [place] [address] Cass Roque PA-C [address] [place] [address] Health Maintenance Due Date Last Done Comments HPV/Co-Test 2018 Influenza Vaccine (FLU shot) (#1) 2023 02/18/2019, 02/18/2019 Cervical Cancer Screening 07/13/2024 Pap Smear 07/13/2024 07/13/2021 Depression Monitoring 11/10/2024 11/11/2023 Diabetes Screening 09/10/2025 09/10/2022, 07/13/2021 DTaP,Tdap,and Td Vaccines (2 - Td or Tdap) 10/10/2030 10/10/2020 COVID-19 Vaccine Completed 02/11/2023, 11/2020, 07/17/2020, Additional history exists Hepatitis B Vaccine Completed 11/11/2023, 10/10/2022, 09/10/2022 HPV (Gardasil) Vaccine Aged Out No lo [...] as of this encounter Visit Diagnoses Diagnosis Routine medical exam- Primary Routine general medical examination at a health care facility INGRIS (generalized anxiety disorder) Generalized anxiety disorder Vaccine for viral hepatitis Need for prophylactic vaccination and inoculation against viral hepatitis documented in this encounter Care Teams Hemmer Lockstitch Relationship Specialty Start Date End Date Tammy Stauffer MD [facility] [place] [address] PCP - General Internal Medicine 04/16/19 documented as of this encounter
--- OUTSIDE RECORDS SUMMARY | 2024-03-11 15:18 | External Medical Summary | Summary of Care ---
Author Name Unknown Organization [facility] Address [address] [place] [address] Phone [phone] Care Team Providers Care Java Web User Interface Developer Name Role Phone Tammy Stauffer MD Primary Care Provider + Reason for Visit * Reason Onset Date Comments Test Results 11/03/2023 Encounter Details Date Type Department Care Team (Late st Contact Info) Description 11/03/2023 Telephone Gynecology/Obstetrics [facility] [address] [place] [address] Malaika Cordova CRNP [address] [place] [facility] [place] [address] Test Results Allergies Active Allergy Reactions Criticality Noted Date [...] mRNA, LNP-s, No Pre serve, 2-Dose Series ([employer]) 03/01/2021,07/17/2020,06/27/2020 Hepatitis B, 20+ yrs 10/10/2022,09/10/2022 Seasonal [...] money to get more. Never true 10/20/2023 [place] Depression Scale Answer Date Recorded [place] Depression Scale Total 6 09/04/2023 The thought [...] file Travel History Travel Start Travel End [place] 10/10/2023 10/26/2023 documented as of this encounter Miscellaneous Notes * Telephone Encounter - Shyanne Brown RN - 11/03/2023 1:18 PM EDT Attempted to call patient. No answer, LVM to return call. * Telephone Encounter - Malaika Cordova CRNP - 11/03/2023 12:28 PM EDT Received report from anatomy scan; unable to see certain views of baby's heart due to positioning, recommend repeat in 2 weeks. Otherwise WNL. Please notify pt and assist in scheduling f/u ultrasound. JAYNE Hoffman documented in this encounter Plan of Treatment Upcoming Encounters Date Type Department Care Team (Late st Contact Info) Description 11/11/2023 2:40 PM EDT Office Visit General Internal Medicine [facility] [address] [place] [address] Tammy Stauffer MD 200 [facility] [place] [address] 11/13/2023 8:40 AM EDT Office Visit General Internal Medicine [facility] [address] [place] [address] Tammy Stauffer MD 200 [facility] [place] [address] 12/01/2023 9:00 AM EDT Office Visit Gynecology/Obstetrics [facility] [address] [place] [address] Cass Roque PA-C [address] [place] [address] Scheduled Orders Name Type Priority Associated Diagnoses Orde r Schedule US PREG FOLLOW-UP EACH FETUS Medical Imaging Routine Encounter for follow-up ultrasound of anatomy Encounter for supervision of normal first in second trimester Other specified related conditions, second trimester Expected: 11/17/2023 (Approximate), Expires: 12/03/2024 Health Maintenance Due Date Last Done Comments [...] this encounter Visit Diagnoses Diagnosis Encounter for follow-up ultrasound of anatomy- Primary Encounter for supervision of normal first in second trimester Supervision of normal first Other specified related conditions, second trimester documented in this encounter Care Teams Java Web User Interface Developer Relationship Specialty Start Date End Date Tammy Stauffer MD [address] [place] [address] PCP - General Internal Medicine 04/16/19 documented as of this encounter
--- OUTSIDE RECORDS SUMMARY | 2024-03-11 15:18 | External Medical Summary | Summary of Care ---
Author Name Unknown Organization [facility] Address [address] [place] [address] Phone [phone] Care Team Providers Care Service Control Operator Name Role Phone Tammy Stauffer MD Primary Care Provider + Reason for Visit * Reason Onset Date Comments Return Visit Medication Administration 12/03/2023 Flu an d/or Pneumo Inj Encounter Details Date Type Department Care Team (Late st Contact Info) Description 12/03/2023 11:30 AM EDT Office Visit Gynecology/Obstetric s Elvin Gardner [address] [place] [address] Cass Roque PA-C [address] [facility] [address] Encounter for supervision of normal first in second trimester*; Advanced maternal age, primigravida, antepartum; Anxiety during ; Need for prophylactic vaccination and inoculation against influenza Allergies Active Allergy Reactions Criticality Noted Date Comments Cat Dander Other (Please comment) 07/13/2021 Itchy nose,watery eyes Grass Pollen(K-O-R-T-Swt Adam) Other (Please comment) 07/13/2021 Itchy nose,watery eyes Molds & Smuts Other (Please comment) 07/13/2021 Itchy nose,watery eyes documented as of this encounter (statuses as of 12/03/2023) Medications Medication Sig Dispensed Refills Start Date End Date Status Vitamin 27-0.8 MG Oral Tablet Take by mouth. Active Venlafaxine HCl ER 75 MG Oral Capsule Extended Release 24 Hour (Effexor XR)Indications:INGRIS (generalized anxiety disorder) TAKE BY MOUTH 1 CAPSULE IN THE MORNING. DO NOT CUT, CRUSH OR CHEW. 90 Capsule 09/29/2023 Active documented as of this encounter (statuses as of 12/03/2023) Active Problems Problem Noted Date Diagnosed Date [...] as of this encounter (statuses as of 12/03/2023) Immunizations Name Administration Dates Next Due COVID-19 mRNA, LNP-s, No Pre serve, 2-Dose Series ([employer]) 03/01/2021,07/17/2020,06/27/2020 Hepatitis B, 20+ yrs 11/11/2023,10/10/2022,09/10 Seasonal Influenza, PF, 6 M & above, IM , (FluLaval or Fluzone) 02/18/2019 Seasonal Influenza, Trivalen t, (IIV3), PF, (Fluzone) 12/03/2023 TDAP (age 10 and older)(Boostrix) 10/10/2020 documented [...] money to get more. Never true 10/20/2023 [place] Depression Scale Answer Date Recorded [place] Depression Scale Total 6 09/04/2023 The thought [...] Sign Reading Time Taken Comments Blood Pressure 116/72 12/03/2023 11:20 AM EDT Pulse - - Temperature - - Respiratory Rate - - Oxygen Saturation - - Inhaled Oxygen Concentration - - Weight 88.9 kg (196 lb) 12/03/2023 11:20 AM EDT Height 167 cm (5' 5.75") 12/03/2023 11:20 AM EDT Body Mass Index 31.88 12/03/2023 11:20 AM EDT documented in this encounter Progress Notes * Cass Roque PA-C - 12/03/2023 11:36 AM EDT 25w0d Feeling more tired, but otherwise doing good. Reviewed third tri labs with next visit. Would like flu vaccine today, given. Interested in RSV when able to get. Denies VB, LOF, contractions. Baby is active. RTC in 3 weeks Cass Roque PA-C documented in this encounter Nursing Notes * Maddi Kowalski LPN - 12/03/2023 11:38 AM EDT Patient here for flu injection. Patient doing well no complaints. Injection given IM as ordered. Patient tolerated well. Patient to follow up as directed. Patient instructed to call if any complications. Patient verbalized understanding of instructions given and her follow up appt for JOSE Injection site: Left Deltoid Medication Source: Dispensed stock medication * Maddi Kowalski LPN - 12/03/2023 11:20 AM EDT 25W0D documented in this encounter Plan of Treatment Upcoming Encounters Date Type Department Care Team (Late st Contact Info) Description 12/25/2023 10:40 AM EDT Laboratory Laboratory, [facility] [address] [place] [id number] Danielle Gardner [facility] [address] [facility] [place] [address] 12/25/2023 10:45 AM EDT Office Visit Gynecology/Obstetrics [facility] [place] [address] [facility] [place] [address] Flor Pack CRNP [facility] [place] [address] 11/11/2024 8:00 AM EDT Office Visit General Internal Medicine [facility] [address] [facility] [place] [address] Tammy Stauffre MD [address] [facility] [place] [address] Scheduled Orders Name Type Priority Associated Diagnoses Orde r Schedule CBC WITH WBC DIFFERENTIAL AND ANEMIA REFLEX WORKUP Lab Routine Encounter for supervision of normal first in second trimester Expected: 12/03/2023 (Approximate), Expires: 12/02/2024 SYPHILIS ANTIBODY SCREEN WITH REFLEX TO RPR Lab Routine Encounter for supervision of normal first in second trimester Expected: 12/03/2023 (Approximate), Expires: 12/02/2024 50-G GESTATIONAL GLUCOSE, 1 HOUR Lab Routine Encounter for supervision of normal first in second trimester Expected: 12/03/2023 (Approximate), Expires: 12/02/2024 Health Maintenance Due Date Last Done Comments HPV/Co-Test 2018 COVID-19 Vaccine ( season) 2023 02/11/2023, 03/01/2021, 07/17/2020, Additional history exists Cervical Cancer Screening 07/13/2024 Pap Smear 07/13/2024 07/13/2021 Depression Monitoring 11/10/2024 11/11/2023 Diabetes Screening 09/10/2025 09/10/2022, 07/13/2021 DTap/Tdap Vaccines (2 - Td or Tdap) 10/10/2030 10/10/2020 Hepatitis B Vaccine Completed 11/11/2023, 10/10/2022, [...] Elderly primigravida, antepartum Anxiety during Need for prophylactic vaccination and inoculation against influenza documented in this encounter Care Teams Service Control Operator Relationship Specialty Start Date End Date Tammy Stauffer MD [address] [facility] [place] [address] PCP - General Internal Medicine 04/16/19 documented as of this encounter
--- OUTSIDE RECORDS SUMMARY | 2024-03-11 15:18 | External Medical Summary | Summary of Care ---
Author Name Unknown Organization [facility] Address [address] [place] [address] Phone [phone] Care Team Providers Care Waterfront Director Name Role Phone Tammy Stauffer MD Primary Care Provider + Reason for Visit * Reason Onset Date Comments Test Results 11/03/2023 Encounter Details Date Type Department Care Team (Late st Contact Info) Description 11/03/2023 Telephone Gynecology/Obstetrics [facility] [address] [place] [address] Malaika Cordova CRNP [address] [place] [address] Test Results Allergies Active Allergy Reactions Criticality [...] mRNA, LNP-s, No Pre serve, 2-Dose Series ([employer]) 03/01/2021,07/17/2020,06/27/2020 Hepatitis B, 20+ yrs 10/10/2022,09/10/2022 Seasonal [...] money to get more. Never true 10/20/2023 [place] Depression Scale Answer Date Recorded [place] Depression Scale Total 6 09/04/2023 The thought [...] file Travel History Travel Start Travel End [place] 10/10/2023 10/26/2023 documented as of this encounter Miscellaneous Notes * Telephone Encounter - Thalia Sood LPN - 11/03/2023 3:40 PM EDT Patient notified. * Telephone Encounter - Shyanne Brown RN [...] PM EDT Office Visit General Internal Medicine [facility] [address] [place] [address] Tammy Stauffer MD [address] [facility] [place] [address] 11/13/2023 8:40 AM EDT Office Visit General Internal Medicine [facility] [address] [place] [address] Tammy Stauffer MD [address] [facility] [place] [address] 11/17/2023 9:45 AM EDT Imaging Radiology [facility] 2nd [facility] [place] [address] 12/01/2023 9:00 AM EDT Office Visit Gynecology/Obstetrics [facility] [address] [facility] [place] [address] Cass Roque PA-C 132 [facility] [place] [address] Scheduled Orders Name Type Priority Associated Diagnoses [...] trimester documented in this encounter Care Teams Waterfront Director Relationship Specialty Start Date End Date Tammy Stauffer MD [address] [place] [address] PCP - General Internal Medicine 04/16/19 documented as of this encounter
--- OUTSIDE RECORDS SUMMARY | 2024-03-11 15:18 | External Medical Summary | Summary of Care ---
Author Name Unknown Organization [facility] Address [address] [place] [address] Phone [phone] Care Team Providers Care Point Of Care Technician Name Role Phone Tammy Stauffer MD Primary Care Provider + Reason for Visit * Reason Comments Physical-Exam Yearly physical exam . Discussed anti-anxiety medication with ENVIRONMENTAL HEALTH PHYSICIAN. Wants to inquire about COVID/flu - baby is due is February. Encounter Details Date Type Department Care Team (Late st Contact Info) Description 11/11/2023 2:40 PM EDT Office Visit General Internal Medicine [facility] [place] [address] [place] [address] Tammy Stauffer MD 200 [place] [address] Routine medical exam*; INGRIS (generalized anxiety disorder); [...] mRNA, LNP-s, No Pre serve, 2-Dose Series ([employer]) 03/01/2021,07/17/2020,06/27/2020 Hepatitis B, 20+ yrs 11/11/2023,10/10/2022,09/10 Seasonal [...] money to get more. Never true 10/20/2023 [place] Depression Scale Answer Date Recorded [place] Depression Scale Total 6 09/04/2023 The thought [...] file Travel History Travel Start Travel End [place] 10/10/2023 10/26/2023 documented as of this encounter [...] this encounter Patient Instructions * Patient Instructions* Daisy Dash, MED ASSIST - 11/11/2023 3:24 PM [...] documented in this encounter Progress Notes * Daisy Dash MED ASSIST - 11/11/2023 3:24 PM [...] MD - 11/11/2023 3:05 PM EDT HPI: Meilsa Graves is a 33 year old female who presents with: Chief Complaint Patient presents with Physical-Exam Yearly physical exam. Discussed anti-anxiety medication with ENVIRONMENTAL HEALTH PHYSICIAN. Wants to inquire about COVID/flu - baby is due is February. Patient is here for the physical. Pt is and is due on 03/17/24. Follows with EXPERIENCED TRUCK DRIVER and Dr. Self at [facility]. She has been on Effexor for 3 [...] Stability Do you currently live in a fpc or have no steady place to sleep [...] Grandfather (Paternal) Heart disease Grandfather (Paternal) from [place] at 75 All system negative except as [...] does wear a seat belt and sees Plastering Contractor and Dentist every year. Fall precautions advised to the patient. Importance of drinking more water atleast 6-8 glasses per day discussed with the patient. INGRIS (generalized anxiety disorder) Stable on effexor. Follow Up: Return in about 1 year (around 11/10/2024) for Return with Physician. | For: Return with Physician Tammy Stauffer MD documented in this encounter Nursing Notes * Daisy Dash MED ASSIST - 11/11/2023 2:42 PM EDT Chief Complaint Patient presents with Physical-Exam Yearly physical exam. Discussed anti-anxiety medication with ENVIRONMENTAL HEALTH PHYSICIAN. Wants to inquire about COVID/flu - baby is due is February. documented in this encounter Miscellaneous Notes * Addendum Note - Daisy Dash MED ASSIST - 11/11/2023 3:26 PM EDT Addended by: DAISY DASH on: 11/11/2023 03:26 PM Modules accepted: Orders documented in this encounter Plan of Treatment Upcoming Encounters Date Type Department Care Team (Late st Contact Info) Description 11/13/2023 8:40 AM EDT Office Visit General Internal [facility] [address] [place] [address] Tammy Stauffer MD [address] [facility] [place] [address] 11/17/2023 9:45 AM EDT Imaging Radiology [facility] 2nd [facility] [address] [facility] [place] [address] 12/01/2023 9:00 AM EDT Office Visit Gynecology/Obstetrics [facility] [address] [place] [address] Cass Roque PA-C [address] [place] [address] 11/11/2024 8:00 AM EDT Office Visit General Internal Medicine [facility] [address] [place] [address] Tammy Stauffer MD 200 [facility] [place] [address] Health Maintenance Due Date Last Done Comments [...] hepatitis documented in this encounter Care Teams Point Of Care Technician Relationship Specialty Start Date End Date Tammy Stauffer MD [address] [place] [address] PCP - General Internal Medicine 04/16/19 documented as of this encounter
--- OUTSIDE RECORDS SUMMARY | 2024-03-11 15:18 | External Medical Summary ---
Author Name Unknown Address Unknown Organization [id number][facility] [address] [place] [address] Laboratory Report Ordering Provider Test Date Status AMPARO CLOUD 12/25/2023 12:15:22 Final Observation Date Value Abnormality Reference (Units ) Status Glucose [Moles/volume] in Serum or Plasma --1 hour post 50 g glucose PO 12/25/2023 12:15:22 129 70-129 (mg/dL) Final Performing Location LABORATORY [facility] [place] [address] - [address] [place] [address]
--- OUTSIDE RECORDS SUMMARY | 2024-03-11 15:18 | External Medical Summary ---
Author Name Unknown Address Unknown Organization [id number]:LABORATORY [facility] - [address] [place] [address] Laboratory Report Ordering Provider Test Date Status AMPARO CLOUD 12/25/2023 12:15:22 Final Observation Date Value Abnormality Reference (Units ) Status SYNC LEUKOCYTES IN BLOOD BY AUTOMATED COUNT 12/25/2023 12:15:22 9.86 4.00-10.80 (K/uL) Final Segs 12/25/2023 12:15:22 79.1 Above high normal 40.0-75.0 (%) Final Lymphs % 12/25/2023 12:15:22 12.5 Below low normal 18.0-42.0 (%) Final Monos 12/25/2023 12:15:22 5.2 1.0-11.0 (%) Final Eosinophils 12/25/2023 12:15:22 0.5 0.0-6.0 (%) Final Basos 12/25/2023 12:15:22 0.4 0.0-2.0 (%) Final Immature Granulocyte, Percent 12/25/2023 12:15:22 2.3 Above high normal 0.0-2.0 (%) Final Absolute Segs 12/25/2023 12:15:22 7.80 Above high normal 1.80-7.70 (K/uL) Final Lymphs, absolute 12/25/2023 12:15:22 1.23 1.00-4.80 (K/ul) Final Monos, Abs 12/25/2023 12:15:22 0.51 0.00-1.10 (K/uL) Final Eos, Abs 12/25/2023 12:15:22 0.05 0.00-0.70 (K/uL) Final Basos, Abs 12/25/2023 12:15:22 0.04 0.00-0.20 (K/uL) Final Immature Granulocytes, Number 12/25/2023 12:15:22 0.23 Above high normal 0.00-0.20 (K/uL) Final Performing Location LABORATORY [facility] - [address] [facility] [address]
--- OUTSIDE RECORDS SUMMARY | 2024-03-11 15:18 | External Medical Summary ---
Author Name Unknown Address Unknown Organization [id number]:[facility] [place] [place] [address] [place] [address] Laboratory Report Ordering Provider Test Date Status AMPARO CLOUD 12/25/2023 12:15:22 Final Observation Date Value Abnormality Reference (Units ) Status Treponema pallidum Ab [Presence] in Serum by Immunoassay 12/25/2023 12:15:22 Nonreactive Nonreactive Final No serologic evidence of syp hilis. No additional testing clinicially indicated at this time. Consider repeat testing in 2-4 weeks if acute or primary syphilis is suspected. Performing Location [facility] [place] [address] [place] [address]
--- OUTSIDE RECORDS SUMMARY | 2024-03-11 15:18 | External Medical Summary | Summary of Care ---
Author Name Unknown Organization [facility] Address [address] [place] [address] Phone [phone] Care Team Providers Care District Manager Name Role Phone Maritza Stauffer MD Primary Care Provider + Reason for Visit * Reason Comments eRx-Medication Refill Encounter Details Date Type Department Care Team (Late st Contact Info) Description 12/20/2023 Refill General Internal Medicine [facility] [address] [place] [address] Maritza Stauffer MD [address] [place] [facility] [place] [place] [address] INGRIS (generalized anxiety disorder) Allergies Active Allergy Reactions Criticality Noted Date Comments Cat Dander Other (Please comment) 07/13/2021 Itchy nose,watery eyes Grass Pollen(K-O-R-T-Swt Adam) Other (Please comment) 07/13/2021 Itchy nose,watery eyes Molds & Smuts Other (Please comment) 07/13/2021 Itchy nose,watery eyes documented as of this encounter (statuses as of 12/22/2023) Medications Medication Sig Dispensed Refills Start Date End Date Status Vitamin 27-0.8 MG Oral Tablet Take by mouth. Active Venlafaxine HCl ER 75 MG Oral Capsule Extended Release 24 Hour (Effexor XR)Indications:GA D (generalized anxiety disorder) TAKE BY MOUTH 1 CAPSULE IN THE MORNING. DO NOT CUT, CRUSH OR CHEW. 30 Capsule 2 12/22/2023 Active Venlafaxine HCl ER 75 MG Oral Capsule Extended Release 24 Hour (Effexor XR)Indications:GA D (generalized anxiety disorder) TAKE BY MOUTH 1 CAPSULE IN THE MORNING. DO NOT CUT, CRUSH OR CHEW. 90 Capsule 09/29/2023 12/22/2023 Discontinued documented as of this encounter (statuses as of 12/22/2023) Active Problems Problem Noted Date Diagnosed Date [...] as of this encounter (statuses as of 12/22/2023) Immunizations Name Administration Dates Next Due COVID-19 mRNA, LNP-s, No Pre serve, 2-Dose Series ([employer]) 03/01/2021,07/17/2020,06/27/2020 Hepatitis B, 20+ yrs 11/11/2023,10/10/2022,09/10 Seasonal [...] money to get more. Never true 10/20/2023 [place] Depression Scale Answer Date Recorded [place] Depression Scale Total 6 09/04/2023 The thought [...] on file documented as of this encounter Miscellaneous Notes * Telephone Encounter - Maritza Stauffer MD - 12/22/2023 2:02 PM EDTSigned Prescriptions: Disp Refills Venlafaxine HCl ER 75 MG Oral Capsule Exte*30 Cap*2 Sig: TAKE BY MOUTH 1 CAPSULE IN THE MORNING. DO NOT CUT, CRUSH OR CHEW. Authorizing Provider: MARITZA STAUFFER * Telephone Encounter - Francheska Medina [facility] - 12/22/2023 12:41 PM EDTPending Prescriptions: Disp Refills Venlafaxine HCl ER 75 MG Oral Capsule Exte*30 Cap*2 Sig: TAKE BY MOUTH 1 CAPSULE IN THE MORNING. DO NOT CUT, CRUSH OR CHEW. * Telephone Encounter - Francheska Medina [facility] - 12/22/2023 12:40 PM EDT Unable to authorize medication refills for pended medication(s) at this time. Part of the protocol criteria used for refill authorization was not satisfied. Patient is currently . Please approve if appropriate. Thank You, Francheska Medina [facility] Clinical Pharmacist [facility] ([facility]) [phone] [id number] 12/22/2023, 12:41 PM documented in this encounter Plan of Treatment Upcoming Encounters Date Type Department Care Team (Late st Contact Info) Description 12/25/2023 10:40 AM EDT Laboratory Laboratory, [facility] [address] [facility] [place] [phone] [facility] [address] [facility] [place] [address] 12/25/2023 10:45 AM EDT Office Visit Gynecology/Obstetrics [facility] [address] [facility] [place] [address] Flor Pack CRNP [address] [facility] [address] 11/11/2024 8:00 AM EDT Office Visit [facility] Internal [facility] [address] [facility] [place] [address] Maritza Stauffer MD [address] [facility] [place] [address] Health Maintenance Due Date Last Done Comments [...] as of this encounter Visit Diagnoses Diagnosis INGRIS (generalized anxiety disorder) Generalized anxiety disorder documented in this encounter Care Teams District Manager Relationship Specialty Start Date End Date Maritza Stauffer MD [address] [place] [address] PCP - General Internal Medicine 04/16/19 documented as of this encounter
--- OUTSIDE RECORDS SUMMARY | 2024-03-11 15:18 | External Medical Summary ---
Author Name Unknown Address Unknown Organization K01:LABORATORY [facility] - [facility] [address] [place] [address] Laboratory Report Ordering Provider Test Date Status AMPARO CLOUD 12/25/2023 12:15:22 Final Observation Date Value Abnormality Reference (Units ) Status WBC, Total 12/25/2023 12:15:22 9.86 4.00-10.8 0 (K/uL) Final RBC 12/25/2023 12:15:22 4.03 3.85-5.15 (M/uL) Final Hemoglobin 12/25/2023 12:15:22 12.7 12.0-15.3 (g/dL) Final Anemia reflex testing trigge rs on a HGB < 12.0 for Females and HGB < 13.0 for Males in accordance with the WHO Anemia Guidelines
Anemia reflex testing triggers on a HGB < 12.0 for Females and HGB < 13.0 for Males in accordance with the WHO Anemia Guidelines HCT 12/25/2023 12:15:22 39.3 36.0-45.2 (%) Final MCV 12/25/2023 12:15:22 97.5 81.5-97.5 (fL) Final MCH 12/25/2023 12:15:22 31.5 27.0-34.0 (pg) Final MCHC 12/25/2023 12:15:22 32.3 32.0-36.0 (g/dL) Final RDW 12/25/2023 12:15:22 13.1 11.5-15.5 (%) Final Platelets 12/25/2023 12:15:22 232 140-400 (K /uL) Final MPV 12/25/2023 12:15:22 11.0 6.6-11.1 ( fL) Final Nucleated erythrocytes/100 leukocytes [Ratio] in Blood by Automated count 12/25/2023 12:15:22 0 <=0 (/100 WBCs) Fi nal Performing Location LABORATORY [facility] - [address] [place] [address]
--- OUTSIDE RECORDS SUMMARY | 2024-03-11 15:19 | External Medical Summary ---
Author Name Unknown Address Unknown Organization [id number]:[facility] [place] [address] [place] [address] Laboratory Report Ordering Provider Test Date Status CLAUDINEROSYBRIAN 09/16/2023 07:56:00 Final Observation Date Value Abnormality Reference (Units ) Status LDL, (direct) 09/16/2023 07:56:00 110 <=129 (mg/dL) Final LDL Cholesterol Reference Ra nges (mg/dL):
<70 Target level for high risk ASCVD patient
<100 Optimal for general population
100-129 Near optimal for general population
130-159 Borderline high
160-189 High
>=190 Very high Performing Location LABORATORY [facility] - [address] [place] [address]
--- OUTSIDE RECORDS SUMMARY | 2024-03-11 15:19 | External Medical Summary | Summary of Care ---
Author Name Unknown Organization [facility] Address [address] [place] [address] Phone [phone] Care Team Providers Care Fabric And Accessories Estimator Name Role Phone Tammy Stauffer MD Primary Care Provider + Reason for Visit * Reason Comments Genetic Counseling * Evaluate & Treat - Unlimited Visits (Within 10 days (routine)) - Authorized Specialty Diagnoses / Procedures Referred By Contact Referred To Contact Medical Genetics / Hematology Oncology Diagnoses Mucopolysaccharidosis, unspecified mucopolysaccharidosis type (HCC) Flor Pack CRNP [address] [place] [address] Referral ID Status Reason Start Date Expiration Date Visits Requested Visits Authorized [id number] Authorized Specialty Services Required 09/23/2023 [id number] Encounter Details Date Type Department Care Team (Late st Contact Info) Description 10/02/2023 1:00 PM EDT Telemedicine Automobile Technician Obstetrics Maternal Medicine, [facility] [address], [place] [id number] Julian Moreira, MS [address], [place] [id number] Family history of genetic disorder*; Encounter for procreative genetic counseling; Encounter of female for testing for genetic disease carrier status for procreative management; Screening for genetic disease carrier status; Supervision of normal first ; Encounter for supervision of normal first in second trimester [Z34.02]; Encounter of male for testing for genetic disease carrier status for procreative management Allergies Active Allergy Reactions Criticality Noted Date Comments Cat Dander Other (Please comment) 07/13/2021 Itchy nose,watery eyes Grass Pollen(K-O-R-T-Swt Adam) Other (Please comment) 07/13/2021 Itchy nose,watery eyes Molds & Smuts Other (Please comment) 07/13/2021 Itchy nose,watery eyes documented as of this encounter (statuses as of 10/02/2023) Medications Medication Sig Dispensed Refills Start Date End Date Status Vitamin 27-0.8 MG Oral Tablet Take by mouth. Active Venlafaxine HCl ER 75 MG Oral Capsule Extended Release 24 Hour (Effexor XR)Indications:INGRIS (generalized anxiety disorder) TAKE BY MOUTH 1 CAPSULE IN THE MORNING. DO NOT CUT, CRUSH OR CHEW. 90 Capsule 09/29/2023 Active documented as of this encounter (statuses as of 10/02/2023) Active Problems Problem Noted Date Diagnosed Date Supervision of normal first 10/02/2023 Advanced maternal age, primigravida, antepartum 09/04/2023 Overview: Low risk NIPT Anxiety during 09/04/2023 Overview: Taking Effexor at NOB. 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 Never true 02/22/20 23 Within the past 12 months, t he food you bought just didn't last and you didn't have money to get more. Never true 02/21/2023 Carroll Depression Scale Answer Date Recorded Carroll Depression Scale Total 6 09/04/2023 The thought of harming myself has occurred to me . Never 09/04/2023 Childcare Answer Date Recorded Do you feel overwhelmed with taking care of a child, family member or friend? No 02/21/2023 Does your family need help f inding childcare? (Household - for ages 0-17 years) Not on file 02/21/2023 Clothing Answer Date Recorded Have you been unable to get clothing when it was really needed? No 02/21/2023 Is your family able to get c lothes or diapers when needed? (Household - for ages 0-17 years) Not on file 02/21/2023 Personal Safety Answer Date Recorded Do you feel unsafe or have concerns for your saf ety? No 02/21/2023 Do you have concerns for you r family's safety? (Household - for ages 0-17 years) Not on file 02/21/2023 Utilities Answer Date Recorded Do you have trouble paying y our heating, water, or electric bill? No 02/21/2023 Is your family able to pay t he heat, water, or electric bill? (Household - for ages 0-17 years) Not on file 02/21/2023 Does your family have access to good internet? (Household - for ages 0-17 years) Not on file 02/21/2023 Employment Status Answer Date Recorded Are you unemployed or without regular income? No 02/21/2023 Does the household have a re gular source of income? (Household - for ages 0-17 years) Not on file 02/21/2023 Social Connections Answer Date Recorded How often do you feel lonely or isolated from th ose around you? Rarely 02/21/2023 Financial Resource Strain Answer Date R ecorded Do you have any trouble payi ng for your medications, or do you think you might in the future? No 02/21/2023 Does your family have troubl e paying for medicine? (Household - for ages 0-17 years) Not on file 02/21/2023 Transportation Needs Answer Date Record ed READ ONLY Do you have troubl e getting a ride to medical visits or work? Never True 02/21/2023 Does your family have a hard time getting a ride to doctors visits? (Household - for ages 0-17 years) Not on file 02/21/2023 Has lack of transportation k ept you from medical appointments, meetings, work, or from getting things needed for daily living? Check all that apply. (Adult - for ages 18 years and over) Not on file 02/21/2023 Do you (or your family) have trouble finding or paying for a ride (transportation)? (Household - for ages 0-17 years) Not on file 02/21/2023 Housing Stability Answer Date Recorded Do you currently live in a s helter or have no steady place to sleep at night? No 02/21/2023 READ ONLY Do you think you a re at risk of becoming homeless? No 02/21/2023 Does your family worry about paying for your home or becoming homeless? (Household - for ages 0-17 years) Not on file 1 04/24/2022 Are you homeless or worried that you might be in the future? (Adult - for ages 18 years and over) Not on file Are you (or your family) benjamín eless or worried that you might be in the future? (Household - for ages 0-17 years) Not on file Food Insecurity Answer Date Recorded Do you need food for this week? No 02/21/2023 Are you able to get enough f ood for your family? (Household - for ages 0-17 years) Not on file 02/21/2023 Does your family need food t his week? (Household - for ages 0-17 years) Not on file 02/21/2023 Do you always have enough fo od for your family? (Household - for ages 0-17 years) Not on file 02/21/2023 Estimated Date of Delivery Comme nts Yes 03/17/2024 Based on Ultraso und Sex and Gender Information Value Date Recorded Sex Assigned at Female 08/28/2022 10:14 AM EDT Gender Identity Female 08/28/2022 10:14 AM EDT Sexual Orientation Straight 08/28/2022 10 :14 AM EDT Job Start Date Occupation Industry Not on file Not on file Not on file documented as of this encounter Progress Notes * Julian Moreira, - 10/02/2023 1:40 PM EDT GENETIC COUNSELING FOR MATERNAL MEDICINE at [facility] | | Email: [email or web address] Name: Melisa Graves Date: 10/02/2023 - 1:00 PM EDT Present for consult: Melisa Graves, Willam Bradford (FOB), Julianrachel Moreira, MS, CGC Seen previously by M Genetic Counseling: no Referring Provider: JAYNE Toledo REASON FOR VISIT: Genetic Counseling for family history of MPS1. HPI: Melisa Graves is a 33 year old with an SANTANA of 03/17/2024, by Ultrasound, placingthe patient at approximately 16w1d gestation at the time of our consultation. The patient presentedto care with spouse. ASSESSMENT: Reviewed that the patient has a 12.5% chance to be a carrier for MPS1, however the risk for an affected is likely less than 1%. PLAN: - Melisa and partner both elect to proceed with comprehensive carrier screening, testing for 600conditions through [facility]. - Patient plans to obtain genetic testing records for the MPS1 in her cousin to provide to our office for us to confirm that the variants can be detected through the carrier screening. - Amniocentesis was declined. - Recommend anatomy ultrasound around 20 weeks gestation. Patient reported that this is scheduled through her OB's office. - Recommend the patient be offered MSAFP-only screening through the inside meter tester's office, at 15-22weeks gestation (preferably 15-18 weeks), to help screen for open neural tube defects. This result is pending. PERSONAL MEDICAL HISTORY: OB History Para Term AB Living 1 0 0 0 0 0 SAB IAB Ectopic Multiple Live Births 0 0 0 0 0 # Outcome Date GA Lbr Bertin/2nd Weight Sex Type Anes PTL Lv 1 Current Personal History: Melisa has a personal history of anxiety. The genetics of psychiatric disorders are poorly understood. We discussed that psychiatric disorders are likely multifactorial, meaning they are the result of a combination of both genetic and environmental factors. Psychiatric disorders can cluster within families; therefore close relatives are at increased risk to develop a psychiatric disorder. However, the exact diagnosis may differ among family members. diagnosis is not available for these types of disorders. We recommend the patient share this family history with the stock house worker. Anatomy Ultrasounds: scheduled, through patient's OB (per patient) Genetic Screening: - Hemoglobinopathies: MCV normal. - Carrier Screening: ordered today. - CfDNA/NIPT: completed, low risk. consistent with male fetus. - Other Genetic Results: none SOCIAL HISTORY: Partner's name is Willam Bradford (: 1988; FOB#1). He is Melisa's partner.. He does not havechildren from prior relationships. FAMILY HISTORY: Review of the genetic family history for this patient and partner was performed, however no medicalrecords were available at the time of consultation. A full pedigree was obtained and linked below labeled as "Progress Notes" under "Other Notes" in this encounter. Pertinent positives for patient: The patient's FHx is remarkable for the following: Patient reported a paternal cousin with MPS1. See discussion below. Patient reported that her mother has anxiety and depression. See discussion above. Patient reported that her paternal half-brother has autism. She is unsure if genetic testing has been completed. Autism Spectrum Disorders (ASD) are neurodevelopmental disorders characterized by impairments in three main areas: social interaction, communication, and restricted and repetitive behavior. ASD includes individuals with classic autism as well as those with atypical or incomplete forms of autism. ASD occurs in approximately 1 in 68 children, and is more common in males. About 5-10% ofcases of classic autism are due to an identifiable genetic disorder, such as fragile X syndrome. Most forms of autism are non-syndromic and are thought to be multifactorial, where a combination of multiple genes and environment plays a role in the development of a condition. We are unable to provide more precise recurrence risk children counselor without further information, ideally including confirmatory medical documentation. Patient reported that her father's maternal half-brother had a brain aneurysm in his 40's. She alsoreported that he had a history of alcoholism and drug abuse. Brain aneurysms are typically sporadic, occurring in that one individual, and not hereditary. However, in some cases multiple family members may experience an aneurysm. When two or more first-degree relatives have an aneurysm, it is called familial aneurysms. In the case of multiple affected family members, screening with imaging study of the brain arteries is recommended, especially for first-degree relatives. In cases of familial aneurysms, there is a 20% incidence of aneurysm for first-degree relatives. Aneurysms, brain as well as other types of aneurysms such as aortic aneurysm, can also be associated with an underlying genetic condition such as vascular Porsha-Danlos syndrome, Loeys- Jovita, and polycystic kidney disease. Consultation with medical genetics should also be considered when there is a significant family history. Since this is a third degree relative to the , and an isolated case, recurrence risk is likely low. Patient reported that her father has a paternal half-brother who from cancer before the age of50. She was unsure of the type of cancer. Discussed that cancer is generally multifactorial in inheritance; that is, genetic and environmental factors influence its development. In some families, thegenetic component is remarkably influential, so much so that the family can be diagnosed with a familial cancer genetic syndrome. These syndromes are typically inherited in an autosomal dominant pattern. Individuals within those families who receive the cancer-predisposing gene change are at a significantly increased lifetime risk for developing cancer. Cancer syndromes are usually characterized by earlier age of onset, multiple new diagnoses in a single individual, and multiple affected members in the family. A cancer genetic counselor could potentially help to identify a specific cancer syndrome and/or offer testing to investigate the possibility of a hereditary cancer syndrome. The best individual for testing is one of the affected members of the family. The family was also encouraged to pursue appropriate cancer screening tests when available due to the family history of cancer. Patient reported that her paternal grandfather from a heart attack at the age of 75. She reported no history of young cardiac . Pertinent positives for patient's reproductive partner: The patient's reproductive partner's FHx is unremarkable. The remaining and family history showed no evidence of defects, multiple miscarriages, intellectual disability, genetic disease, or significant exposures. COUNSELING TOPICS & CONSULT SUMMARY: 1. Mucopolysaccharidosis type 1 (MPS1): - Patient reported that she has a paternal cousin through her paternal half-aunt with mucopolysaccharidosis type 1 (MPS1) (Hurler syndrome). Confirmatory medical records were unavailable at the time of consultation. - This is a lysosomal storage disease characterized by skeletal abnormalities, cognitive impairment, heart disease, respiratory problems, enlarged liver and spleen, characteristic facial features, and a reduced life expectancy. - This condition is caused by mutations in the IDUA gene and is inherited in an autosomal recessivemanner. - Discussed the option of completing carrier screening to determine if the patient and her partner are carriers for this condition. - Emphasized the importance of obtained medical records from her cousin to confirm that his variants can be detected by routine carrier screening. - Based on family history, the patient has a 12.5% chance to be a carrier. - If both parents are found to be a carrier, there would be a 25% chance of an affected . Diagnostic testing through amniocentesis would be available to determine the 's status. These procedures have a 1 in 500 risk for miscarriage. - Diagnostic testing can also be completed after through cord blood testing or through the pediatric genetics clinic. 2. Carrier Screening: - Reviewed the concept of carrier screening, including benefits, risks, and limitations of genetic screening for carrier status. Emphasized that a negative carrier screening result would significantly reduce the risk of being a carrier for the disorders tested, but does not eliminate the risk entirely. - Reviewed options for (1) basic carrier screening for cystic fibrosis, spinal muscular atrophy, and hemoglobinopathies versus (2) expanded testing to include approximately 600 disorders. - Provided education about different modes of inheritance including autosomal recessive and X-linked dominant and X-linked recessive. Patient is aware that both patient and partner need to be carriers of a recessive condition to have a child that is affected, the risk of an affected child would be 25%. For X-linked conditions, the patient is aware that if they are a carrier, there is typically a 50% chance male children would be affected. - Implications of carrier screening were discussed, including the lack of data on some of the more rare conditions, and the emerging data on carrier status related to disease or susceptibility to disease. - For any future , we recommend that the patient inquire about changes in testing methodologies for carrier screening or updates in panels available 3. General Genetic and Education: - The background population risk for defects or intellectual disability in every is2-3%, regardless of past medical history. - There are multiple types of genetic concerns, sporadic or inherited, that can affect any , ranging from full chromosome aneuploidy, small deletions or duplications, and single gene variants. These are not universally covered by any one genetic test and test strategy is determined by reported history and active concerns. - We discussed the benefits and limitations of testing during using a variety of tests such as: cell-free DNA screening (cfDNA/NIPT), chorionic villus sampling (CVS), amniocentesis, anatomy ultrasound examination, indication-based targeted disease panels, and carrier screening panels. - CVS and amniocentesis carry a 1 in 500 risk for miscarriage 4. Chromosome Disorder Risks: - Discussed maternal age-related risk for chromosome abnormalities and rationale for screening during . Maternal Age at EDC: 33y, risk for Down Syndrome , any aneuploidy - Reviewed patient's low risk cfDNA screening. - cfDNA (NIPT) for Down syndrome, trisomy 18, trisomy 13, and sex chromosome abnormalitiesis not diagnostic, but is highly accurate. For a positive genetic screening result, confirmation byCVS or amniocentesis is recommended, and a negative test result does not rule out a chromosome abnormality. A total of 26 minutes was spent in video-based genetic counseling consultation. Please feel free to call with any questions regarding this report. Julian Moreira, [facility] [place] [facility] [place] Licensed, Certified Genetic Counselor Maternal Medicine [facility] Medicine [facility] [phone] Patient location: HOME. I was not in a hospital or clinic location. After connecting through televideo, patient was verified with two unique identifiers. Patient (or authorized legal territory account representative) was then informed that this was a Telemedicine visit and being conducted confidentially over secure lines. Methods to assure confidentiality were taken. Patient acknowledged consent and understanding of privacy and security of the Telemedicine visit. The patient agreed to participate. ICD-10-CM 1. Family history of genetic disorder Z84.89 2. Encounter for procreative genetic counseling Z31.5 3. Encounter of female for testing for genetic disease carrier status for procreative management Z31.430 4. Screening for genetic disease carrier status Z13.71 5. Supervision of normal first Z34.00 documented in this encounter Miscellaneous Notes * Addendum Note - Julian Moreira MS - 10/02/2023 2:17 PM EDTAddended by: LAURYN JULIAN on: 10/02/2023 02:17 PM Modules accepted: Orders documented in this encounter Plan of Treatment Upcoming Encounters Date Type Department Care Team (Late st Contact Info) Description 11/03/2023 9:45 AM EDT Imaging Radiology [facility] [address] [facility] [place] [address] 11/03/2023 11:30 AM EDT Office Visit Gynecology/Obstetrics [facility] [address] [facility] [place] [address] Cass Roque PA-C [address] [facility] [place] [id number] 11/11/2023 2:40 PM EDT Office Visit General Internal Medicine [facility] [address] [place] [id number] Tammy Stauffer MD [address] [facility] [place] [address] 11/13/2023 8:40 AM EDT Office Visit General Internal Medicine [facility] [place] [address] [facility] [place] [id number] Tammy Stauffer MD [address] [facility] [place] [id number] Health Maintenance Due Date Last Done Comments [...] as of this encounter Visit Diagnoses Diagnosis Family history of genetic disorder- Primary Family history of other condition Encounter for procreative genetic counseling Encounter of female for testing for genetic disease carrier status for procreative management Testing of female for genetic disease carrier status Screening for genetic disease carrier status Supervision of normal first Encounter for supervision of normal first in second trimester [Z34.02] Supervision of normal first Encounter of male for testing for genetic disease carrier status for procreative management Testing of male for genetic disease carrier status documented in this encounter Care Teams Fabric And Accessories Estimator Relationship Specialty Start Date End Date Tammy Stauffer MD [address] [facility] [place] [address] PCP - General Internal Medicine 04/16/19 documented as of this encounter
--- OUTSIDE RECORDS SUMMARY | 2024-03-11 15:19 | External Medical Summary | Summary of Care ---
Author Name Unknown Organization [facility] Address [address] [place] [address] Phone [phone] Care Team Providers Care Public Welfare Director Name Role Phone Tammy Stauffer MD Primary Care Provider + Reason for Visit * Reason Onset Date Comments Test Results 10/23/2023 Horizon Carrier Screening Encounter Details Date Type Department Care Team (Late st Contact Info) Description 10/23/2023 Telephone Publication Manager Obstetrics Maternal [facility], [place] [address] [place] [address] Gayla Og CHRA Test Results (Horizon Carrier Screening) Allergies Active Allergy Reactions Criticality Noted Date Comments Cat Dander Other (Please comment) 07/13/2021 Itchy nose,watery eyes Grass Pollen(K-O-R-T-Swt Adam) Other (Please comment) 07/13/2021 Itchy nose,watery eyes Molds & Smuts Other (Please comment) 07/13/2021 Itchy nose,watery eyes documented as of this encounter (statuses as of 10/23/2023) Medications Medication Sig Dispensed Refills Start Date End Date Status Vitamin 27-0.8 MG Oral Tablet Take by mouth. Active Venlafaxine HCl ER 75 MG Oral Capsule Extended Release 24 Hour (Effexor XR)Indications:INGRIS (generalized anxiety disorder) TAKE BY MOUTH 1 CAPSULE IN THE MORNING. DO NOT CUT, CRUSH OR CHEW. 90 Capsule 09/29/2023 Active documented as of this encounter (statuses as of 10/23/2023) Active Problems Problem Noted Date Diagnosed Date [...] as of this encounter (statuses as of 10/23/2023) Immunizations Name Administration Dates Next Due COVID-19 mRNA, LNP-s, No Pre serve, 2-Dose Series ([employer]) 03/01/2021,07/17/2020,06/27/2020 Hepatitis B, 20+ yrs 10/10/2022,09/10/2022 Seasonal [...] money to get more. Never true 10/20/2023 [place] Depression Scale Answer Date Recorded [place] Depression Scale Total 6 09/04/2023 The thought [...] No 10/20/2023 Does the household have a [facility] source of income? (Household - for ages [...] Travel History Travel Start Travel End [place] 10/10/2023 10/26/2023 documented as of this encounter Miscellaneous Notes * Telephone Encounter - Gayla Og CHRA - 10/23/2023 2:41 PM EDT Melisa Returned my call. We went over her carrier screening results. Respectfully, Gayla Og Genetic Counseling Haircutter Maternal Medicine/ Medical Genetics For further MFM questions call For further Medical Genetics questions call * Telephone Encounter - Gayla Og CHRA - 10/23/2023 1:14 PM EDT Called patient to review her carrier screening results. The patient is NEGATIVE. No answer left voicemail and sent MYG. Respectfully, Gayla Og Genetic Counseling Haircutter Maternal Medicine/ Medical Genetics For further MFM questions call For further Medical Genetics questions call documented in this encounter Plan of Treatment Upcoming Encounters Date Type Department Care Team (Late st Contact Info) Description 11/03/2023 9:45 AM EDT Imaging Radiology [facility] [address] [place] [address] 11/03/2023 11:30 AM EDT Office Visit Gynecology/Obstetrics [facility] [address] [place] [address] Cass Roque PA-C [address] [place] [address] 11/11/2023 2:40 PM EDT Office Visit General Internal Medicine [facility] [address] [place] [address] Tammy Stauffer MD [address] [place] [address] 11/13/2023 8:40 AM EDT Office Visit General Internal Medicine [facility] [place] [address] [place] [address] Tammy Stauffer MD [address] [place] [address] Health Maintenance Due Date Last Done Comments [...] filedocumented as of this encounter Care Teams Public Welfare Director Relationship Specialty Start Date End Date Tammy Stauffer MD [address] [facility] [place] [address] PCP - General Internal Medicine 04/16/19 documented as of this encounter
--- OUTSIDE RECORDS SUMMARY | 2024-03-11 15:19 | External Medical Summary | Summary of Care ---
Author Name Unknown Organization [facility] Address [address] [place] [address] Phone [phone] Care Team Providers Care Manufacturing Business Analyst Name Role Phone Tammy Stauffer MD Primary Care Provider + Reason for Visit * Reason Comments Outpatient Testing Encounter Details Date Type Department Care Team (Late st Contact Info) Description 09/16/2023 7:50 AM EDT Laboratory Laboratory [facility] [address] [place] [id number] [facility] [address] [place] [address] Encounter for long-term (current) use of medications Allergies Active Allergy Reactions Criticality Noted Date Comments Cat Dander Other (Please comment) 07/13/2021 Itchy nose,watery eyes Grass Pollen(K-O-R-T-Swt Adam) Other (Please comment) 07/13/2021 Itchy nose,watery eyes Molds & Smuts Other (Please comment) 07/13/2021 Itchy nose,watery eyes documented as of this encounter (statuses as of 09/16/2023) Medications Medication Sig Dispensed Refills Start Date End Date Status Venlafaxine HCl ER 75 MG Oral Capsule Extended Release 24 Hour (Effexor XR)Indications:INGRIS (generalized anxiety disorder) TAKE BY MOUTH 1 CAPSULE IN THE MORNING. DO NOT CUT, CRUSH OR CHEW. 30 Capsule 6 02/28/2023 Active Vitamin 27-0.8 MG Oral Tablet Take by mouth. Active documented as of this encounter (statuses as of 09/16/2023) Active Problems Problem Noted Date Diagnosed Date Advanced maternal age, primigravida, antepartum 09/04/2023 Anxiety during 09/04/2023 Overview: Taking Effexor at NOB. 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 Never true 02/21/2023 [place] Depression Scale Answer Date Recorded [place] Depression Scale Total 6 09/04/2023 The thought [...] No 02/21/2023 Does the household have a [facility] source of income? (Household - for ages [...] Team (Late st Contact Info) Description 10/02/2023 9:00 AM EDT Office Visit Gynecology/Obstetrics [facility] [address] [place] [address] Malaika Cordova CRNP [address] [place] [address] 11/13/2023 8:40 AM EDT Office Visit General Internal Medicine [facility] [address] [place] [address] Tammy Stauffer MD [address] [place] [address] Pending Results Name Type Priority Associated Diagnoses Date /Time LDL CHOLESTEROL (DIRECT MEASURE) Lab Routine Encounter for long-term (current) use of medications 09/16/2023 7:56 AM EDT Health Maintenance Due Date Last Done Comments HPV/Co-Test 2018 Hepatitis B (3 of 3 - 19+ 3-dose series) 03/12/2023 10/10/2022, 09/10/2022 Depression Monitoring 09/11/2023 09/10/2022 Influenza Vaccine (FLU shot) (Season Ended) 2023 02/18/2019, 02/18/2019 Cervical Cancer Screening 07/13/2024 Pap Smear 07/13/2024 07/13/2021 Diabetes Screening 09/10/2025 09/10/2022, 07/13/2021 DTaP,Tdap,and Td Vaccines (2 - Td or Tdap) 10/10/2030 10/10/2020 COVID-19 Vaccine Completed 02/11/2023, 11/2020, 07/17/2020, Additional history exists GARDASIL-HPV IMMUNIZATION SERIES Aged Out No longer eligible based on [...] this encounter Visit Diagnoses Diagnosis Encounter for long-term (current) use of medications Encounter for long-term (current) use of other medications documented in this encounter Care Teams Manufacturing Business Analyst Relationship Specialty Start Date End Date Tammy Stauffer MD [address] [place] [address] PCP - General Internal Medicine 04/16/19 documented as of this encounter
--- OUTSIDE RECORDS SUMMARY | 2024-03-11 15:19 | External Medical Summary | Summary of Care ---
Author Name Unknown Organization [facility] Address [address] [place] [address] Phone [phone] Care Team Providers Care Silverer Name Role Phone Tammy Stauffer MD Primary Care Provider + Reason for Visit * Reason Comments Outpatient Testing Encounter Details Date Type Department Care Team (Late st Contact Info) Description 10/06/2023 4:10 PM EDT Laboratory Laboratory, [facility] [address] [place] [address] [facility] [address] [place] [address] Family history of genetic disorder; Encounter of female for testing for genetic disease carrier status for procreative management; Screening for genetic disease carrier status Allergies Active Allergy Reactions Criticality Noted Date Comments Cat Dander Other (Please comment) 07/13/2021 Itchy nose,watery eyes Grass Pollen(K-O-R-T-Swt Adam) Other (Please comment) 07/13/2021 Itchy nose,watery eyes Molds & Smuts Other (Please comment) 07/13/2021 Itchy nose,watery eyes documented as of this encounter (statuses as of 10/06/2023) Medications Medication Sig Dispensed Refills Start Date End Date Status Vitamin 27-0.8 MG Oral Tablet Take by mouth. Active Venlafaxine HCl ER 75 MG Oral Capsule Extended Release 24 Hour (Effexor XR)Indications:INGRIS (generalized anxiety disorder) TAKE BY MOUTH 1 CAPSULE IN THE MORNING. DO NOT CUT, CRUSH OR CHEW. 90 Capsule 09/29/2023 Active documented as of this encounter (statuses as of 10/06/2023) Active Problems Problem Noted Date Diagnosed Date [...] as of this encounter (statuses as of 10/06/2023) Immunizations Name Administration Dates Next Due COVID-19 mRNA, LNP-s, No Pre serve, 2-Dose Series (Prim’Vision) 03/01/2021,07/17/2020,06/27/2020 Hepatitis B, 20+ yrs 10/10/2022,09/10/2022 Seasonal [...] money to get more. Never true 02/21/2023 [place] Depression Scale Answer Date Recorded [place] Depression Scale Total 6 09/04/2023 The thought [...] 02/21/2023 Does the household have a re lar [...] Description 11/03/2023 9:45 AM EDT Imaging Radiology [facility] [address] [place] [address] 11/03/2023 11:30 AM EDT Office Visit Gynecology/Obstetrics [facility] [address] [place] [address] Cass Roque PA-C [address] [place] [address] 11/11/2023 2:40 PM EDT Office Visit General Internal Medicine [facility] [address] [place] [address] Tammy Stauffer MD [address] [facility] [place] [address] 11/13/2023 8:40 AM EDT Office Visit General Internal Medicine [facility] [address] [facility] [place] [address] Tammy Stauffer MD [address] [facility] [place] [address] Pending Results Name Type Priority Associated Diagnoses Date /Time COMPREHENSIVE CARRIER SCREEN Lab Routine Family history of genetic disorder Encounter of female for testing for genetic disease carrier status for procreative management Screening for genetic disease carrier status 10/06/2023 3:55 PM EDT Health Maintenance Due Date Last [...] Visit Diagnoses Diagnosis Family history of genetic disorder Family history of other condition Encounter of female for testing for genetic disease carrier status for procreative management Testing of female for genetic disease carrier status Screening for genetic disease carrier status documented in this encounter Care Teams Silverer Relationship Specialty Start Date End Date Tammy Stauffer MD [address] [place] [address] PCP - General Internal Medicine 04/16/19 documented as of this encounter
--- OUTSIDE RECORDS SUMMARY | 2024-03-11 15:19 | External Medical Summary ---
Author Name Unknown Address Unknown Organization : Laboratory Report Ordering Provider Test Date Status KAIA GRACIA 10/02/2023 09:16:07 Final Observation Date Value Abnormality Reference (Units ) Status INTERPRETATION 10/02/2023 09:16:07 SEE BELOW Final Screen negative for open NTD RISK FOR ONTD 10/02/2023 09:16:07 <1:5000 Final CALC'D GESTATIONAL AGE 0710/02/2023 09:16:07 16.1 Final AFP, SERUM 10/02/2023 09:16:07 22.1 (ng/mL) Final AFP MOM 10/02/2023 09:16:07 0.76 Final Reference Range:
NTD <2 .50
IDD <1.90
TWINS <4.00
TWINS IDD <3.50
TRIPLETS <4.50
The AFP test result indicates that this patient is
screen negative for open NTD. It should be noted
that normal test results can never guarantee the
of a normal baby and that 2-3% of newborns
have some type of physical or mental defect, many
of which are undetectable through any known
diagnostic technique.
This is a screening test, not a diagnostic test.
This risk assessment report is based in part on
demographic data provided by the ordering
physician. Please notify the laboratory promptly
if any data are incorrect. For assistance with
recalculations, please call your local [facility] laboratory. For assistance with
interpretation of these results, please contact
your Local [facility] genetic counselor or
call [phone] ([phone]).
Interpretive Cutoffs
Screen Positive for Open NTD:
> or = 2.50 adjusted MOM
> or = 1.90 adjusted MOM for insulin- dependent diabetics
> or = 4.00 adjusted MOM for twins
> or = 3.50 adjusted MOM for twins insulin-dependent diabetics
> or = 4.50 adjusted MOM for triplets
For additional information, please refer to
[email or web address].[email or web address]/[email or web address]
(This link is being provided for
informational/educational purposes only.) DATE OF 10/02/2023 09:16:07 1990 Final COLLECTION DATE 10/02/2023 09:16:07 10/02/2023 Final MATERNAL WEIGHT 10/02/2023 09:16:07 194 (lbs ) Final EST'D DATE OF DELIVERY 10/02/2023 09:16:07 03/17/2024 Final SANTANA DETERMINED BY 10/02/2023 09:16:07 LMP Final MOTHER'S ETHNIC ORIGIN 10/02/2023 09:16:07 WHITE Final NUMBER OF FETUSES 10/02/2023 09:16:07 1 Final INSULIN DEPEND DIABETIC 10/02/2023 09:16:07 NO Final REPEAT SPECIMEN 10/02/2023 09:16:07 NO Final HX OF NEURAL TUBE DEFECTS 10/02/2023 09:16:07 NO Final PREV DOWN SYND 10/02/2023 09:16:07 NO Final DONOR EGG 10/02/2023 09:16:07 NO Final DONOR AGE: EGG RETRIEVAL 10/02/2023 09:16:07 NOT GIVEN Final Test performed by [facility]
[address],
[place] [address]

Labor Employment Associate: Radha Melara MD,PHD,LOUISE
Test Reported by Aleyda Lozano,
[facility],
[address] [place], [place]
Valdemar Nino M.D., Ph.D., Director of Laboratories
, [facility] [id number] Performing Location
--- OUTSIDE RECORDS SUMMARY | 2024-03-11 15:19 | External Medical Summary ---
Author Name Unknown Address Unknown Organization : Laboratory Report Ordering Provider Test Date Status JAIME RICHARD 10/06/2023 15:55:48 Correction Observation Date Value Abnormality Reference (Units ) Status REFERENCE LAB SCANNED REPORT 10/06/2023 15:55:48 RESULT SCAN Final Performing Location
--- OUTSIDE RECORDS SUMMARY | 2024-03-11 15:19 | External Medical Summary | Summary of Care ---
Author Name Unknown Organization [facility] Address [address] [place] [address] Phone [phone] Care Team Providers Care Welfare Officer Name Role Phone Maritza Stauffer MD Primary Care Provider + Reason for Visit * Reason Comments eRx-Medication Refill Encounter Details Date Type Department Care Team (Late st Contact Info) Description 09/27/2023 Refill General Internal Medicine [facility] [address] [facility] [place] [address] Maritza Stauffer MD [address] [place] [facility] [place] [address] INGRIS (generalized anxiety disorder) Allergies Active Allergy Reactions Criticality Noted Date Comments Cat Dander Other (Please comment) 07/13/2021 Itchy nose,watery eyes Grass Pollen(K-O-R-T-Swt Adam) Other (Please comment) 07/13/2021 Itchy nose,watery eyes Molds & Smuts Other (Please comment) 07/13/2021 Itchy nose,watery eyes documented as of this encounter (statuses as of 09/29/2023) Medications Medication Sig Dispensed Refills Start Date End Date Status Vitamin 27-0.8 MG Oral Tablet Take by mouth. Active Venlafaxine HCl ER 75 MG Oral Capsule Extended Release 24 Hour (Effexor XR)Indications:GA D (generalized anxiety disorder) TAKE BY MOUTH 1 CAPSULE IN THE MORNING. DO NOT CUT, CRUSH OR CHEW. 90 Capsule 09/29/2023 Active Venlafaxine HCl ER 75 MG Oral Capsule Extended Release 24 Hour (Effexor XR)Indications:GA D (generalized anxiety disorder) TAKE BY MOUTH 1 CAPSULE IN THE MORNING. DO NOT CUT, CRUSH OR CHEW. 30 Capsule 6 02/28/2023 09/29/2023 Discontinued documented as of this encounter (statuses as of 09/29/2023) Active Problems Problem Noted Date Diagnosed Date Advanced maternal age, primigravida, antepartum 09/04/2023 Anxiety during 09/04/2023 Overview: Taking Effexor at NOB. 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 Never true 02/21/2023 [place] Depression Scale Answer Date Recorded [place] Depression Scale Total 6 09/04/2023 The thought [...] encounter Miscellaneous Notes * Telephone Encounter - Sandro Ro [facility] - 09/29/2023 10:57 AM EDT Signed Prescriptions: Disp Refills Venlafaxine HCl ER 75 MG Oral Capsule Exte*90 Cap*0 Sig: TAKE BYMOUTH 1 CAPSULE IN THE MORNING. DO NOT CUT, CRUSH OR CHEW.Authorizing Provider: MARITZA STAUFFER User: SANDRO RO ----- * Telephone Encounter - Sandro Ro RPh - 09/29/2023 10:52 AM EDT RX authorized. Zero refills given until upcoming appt. 11/11/2023 Sandro Veras PharmD Clinical Pharmacist [facility] [phone] 09/29/2023, 10:57 AM documented in this encounter Plan of Treatment Upcoming Encounters Date Type Department Care Team (Late st Contact Info) Description 10/02/2023 9:00 AM EDT Office Visit Gynecology/Obstetrics [facility] [address] [place] [address] Malaika Cordova CRNP [address] [place] [address] 11/11/2023 2:40 PM EDT Office Visit General Internal Medicine [facility] [place] [address] [place] [address] Maritza Stauffer MD [address] [place] [address] 11/13/2023 8:40 AM EDT Office Visit General Internal Medicine [facility] [place] [address] [place] [address] Maritza Stauffer MD [address] [place] [address] Health Maintenance Due Date Last Done Comments [...] disorder documented in this encounter Care Teams Welfare Officer Relationship Specialty Start Date End Date Maritza Stauffer MD [address] [place] [address] PCP - General Internal Medicine 04/16/19 documented as of this encounter
--- OUTSIDE RECORDS SUMMARY | 2024-03-11 15:19 | External Medical Summary | Summary of Care ---
Author Name Unknown Organization [facility] Address [address] [place] [address] Phone [phone] Care Team Providers Care Liquid Hydrogen Plant Operator Name Role Phone Tammy Stauffer MD Primary Care Provider + Reason for Visit * Reason Comments Return Visit Encounter Details Date Type Department Care Team (Late st Contact Info) Description 10/02/2023 9:00 AM EDT Office Visit Gynecology/Obstetric s [facility] [address] [facility] [place] [address] Malaika Cordova CRNP [address] [facility] [address] Encounter for supervision of normal first in second trimester*; Advanced maternal age, primigravida, antepartum; Anxiety during ; Encounter for supervision of normal in second trimester, unspecified Allergies Active Allergy Reactions Criticality Noted Date [...] mRNA, LNP-s, No Pre serve, 2-Dose Series ([employer]) 03/01/2021,07/17/2020,06/27/2020 Hepatitis B, 20+ yrs 10/10/2022,09/10/2022 Seasonal [...] money to get more. Never true 02/21/2023 [place] Depression Scale Answer Date Recorded [place] Depression Scale Total 6 09/04/2023 The thought [...] No 02/21/2023 Does the household have a [facility] source of income? (Household - for [...] Sign Reading Time Taken Comments Blood Pressure 118/68 10/02/2023 9:00 AM EDT Pulse - - Temperature - - Respiratory Rate - - Oxygen Saturation - - Inhaled Oxygen Concentration - - Weight 88.5 kg (195 lb) 10/02/2023 9:00 AM EDT Height 165.1 cm (5' 5") 10/02/2023 9:00 AM EDT Body Mass Index 32.45 10/02/2023 9:00 AM EDT documented in this encounter Progress Notes * Malaika Cordova CRNP - 10/02/2023 9:00 AM EDT 16w1d No movement yet. Denies bleeding, ctx. Low risk NIPT. Meeting with chief hydroelectric station operator today to discuss carrier screening. Interested in MSAFP, ordered. Feels well on current dose of Effexor. Anatomy scan at 20 weeks. JAYNE Hoffman * Carly Jackson LPN - 10/02/2023 8:57 AM EDT 16w1d documented in this encounter Plan of Treatment Upcoming Encounters Date Type Department Care Team (Late st Contact Info) Description 10/02/2023 1:00 PM EDT Telemedicine [facility] Obstetrics [facility], [place] [address] [place] [address] Althea Moreira, [place] [address] [place] [address] 11/03/2023 9:45 AM EDT Imaging Radiology [facility] [address] [place] [address] 11/03/2023 11:30 AM EDT Office Visit Gynecology/Obstetrics [facility] [address] [place] [address] Cass Roque PA-C [address] [place] [address] 11/11/2023 2:40 PM EDT Office Visit General Internal Medicine [facility] [address] Tammy Stauffer MD 200 [facility] [place] [address] 11/13/2023 8:40 AM EDT Office Visit General Internal Medicine [facility] [place] [address] [facility] [place] [address] Tammy Stauffer MD 200 [facility] [place] [address] Pending Results Name Type Priority Associated Diagnoses Date /Time MATERNAL SERUM AFP Lab Routine Encounter for supervision of normal first in second trimester 10/02/2023 9:16 AM EDT Scheduled Orders Name Type Priority Associated Diagnoses Orde r Schedule US PREG SINGLE/1ST GEST, 14 WEEKS OR LATER Medical Imaging Routine Encounter for supervision of normal first in second trimester Encounter for supervision of normal in second trimester, unspecified Expected: 11/02/2023 (Approximate), Expires: 11/01/2024 MATERNAL SERUM AFP Lab Routine Encounter for supervision of normal first in second trimester Expected: 10/02/2023 (Approximate), Expires: 10/01/2024 Health Maintenance Due Date Last Done Comments [...] Diagnoses Diagnosis Encounter for supervision of normal in second trimester, unspecified Advanced maternal age, primigravida, antepartum Elderly primigravida, antepartum Anxiety during documented in this encounter Care Teams Liquid Hydrogen Plant Operator Relationship Specialty Start Date End Date Tammy Stauffer MD [address] [place] [address] PCP - General Internal Medicine 04/16/19 documented as of this encounter
--- OUTSIDE RECORDS SUMMARY | 2024-03-11 15:19 | External Medical Summary | Summary of Care ---
Author Name Unknown Organization [facility] Address [address] [place] [address] Phone [phone] Care Team Providers Care Mycologist Name Role Phone Tammy Stauffer MD Primary Care Provider + Reason for Visit * Reason Onset Date Comments Test Results 10/23/2023 Horizon Carrier Screening Encounter Details Date Type Department Care Team (Late st Contact Info) Description 10/23/2023 Telephone Box Attacher Obstetrics Maternal Medicine, [place] [address] [place] [address] Gayla Og CHRA Test Results [...] mRNA, LNP-s, No Pre serve, 2-Dose Series ([employer] 03/01/2021,07/17/2020,06/27/2020 Hepatitis B, 20+ yrs 10/10/2022,09/10/2022 Seasonal [...] money to get more. Never true 10/20/2023 [place] Depression Scale Answer Date Recorded [place] Depression Scale Total 6 09/04/2023 The thought [...] Does the household have a [facility] source of income? (Household - for ages [...] file Travel History Travel Start Travel End [place] 10/10/2023 10/26/2023 documented as of this encounter Miscellaneous Notes * Telephone Encounter - Gayla Og CHRA - 10/23/2023 1:14 PM EDT Called patient to review her carrier screening results. The patient is NEGATIVE. No answer left voicemail and sent MYG. Respectfully, Gayla Og Genetic Counseling Director Medicaid Maternal Medicine/ Medical Genetics For further MFM questions call For further Medical Genetics questions call documented in this encounter Plan of Treatment Upcoming Encounters Date Type Department Care Team (Late st Contact Info) Description 11/03/2023 9:45 AM EDT Imaging Radiology [facility] [address] [facility] [place] [address] 11/03/2023 11:30 AM EDT Office Visit Gynecology/Obstetrics [facility] [address] [place] [address] Cass Roque PA-C [address] [place] [address] 11/11/2023 2:40 PM EDT Office Visit General Internal Medicine [facility] 200 [facility] [place] [address] Tammy Stauffer MD 200 [facility] [place] [address] 11/13/2023 8:40 AM EDT Office Visit General Internal Medicine [facility] [address] [place] [address] Tammy Stauffer MD 200 [facility] [place] [address] Health Maintenance Due Date Last Done Comments [...] filedocumented as of this encounter Care Teams Mycologist Relationship Specialty Start Date End Date Tammy Stauffer MD 200 [facility] [place] [address] PCP - General Internal Medicine 04/16/19 documented as of this encounter
--- OUTSIDE RECORDS SUMMARY | 2024-03-11 15:19 | External Medical Summary | Summary of Care ---
Author Name Unknown Organization [facility] Address [address] [place] [address] Phone [phone] Care Team Providers Care Subwarehouse Supervisor Name Role Phone Tammy Stauffer MD Primary Care Provider + Reason for Visit * Reason Comments Genetic Counseling * Evaluate & Treat - Unlimited Visits (Within 10 days (routine)) - Authorized Specialty Diagnoses / Procedures Referred By Contact Referred To Contact Medical Genetics / Hematology Oncology Diagnoses Mucopolysaccharidosis, unspecified mucopolysaccharidosis type (HCC) Flor Pack CRNP [address] [place] [address] Referral ID Status Reason Start Date Expiration Date Visits Requested Visits Authorized [id number] Authorized Specialty Services Required 09/23/2023 [id number] Encounter Details Date Type Department Care Team (Late st Contact Info) Description 10/02/2023 1:00 PM EDT Telemedicine Electronic Induction Hardener Obstetrics Maternal Medicine, [place] [address], [place] [phone] Julian Combs, MS [address], [place] [phone] Family history of genetic disorder*; Encounter for [...] as of this encounter (statuses as of 10/03/2023) Medications Medication Sig Dispensed Refills Start Date End Date Status Vitamin 27-0.8 MG Oral Tablet Take by mouth. Active Venlafaxine HCl ER 75 MG Oral Capsule Extended Release 24 Hour (Effexor XR)Indications:INGRIS (generalized anxiety disorder) TAKE BY MOUTH 1 CAPSULE IN THE MORNING. DO NOT CUT, CRUSH OR CHEW. 90 Capsule 09/29/2023 Active documented as of this encounter (statuses as of 10/03/2023) Active Problems Problem Noted Date Diagnosed Date [...] as of this encounter (statuses as of 10/03/2023) Immunizations Name Administration Dates Next Due COVID-19 mRNA, LNP-s, No Pre serve, 2-Dose Series ([employer]) 03/01/2021,07/17/2020,06/27/2020 Hepatitis B, 20+ yrs 10/10/2022,09/10/2022 Seasonal [...] money to get more. Never true 02/21/2023 [place] Depression Scale Answer Date Recorded [place] Depression Scale Total 6 09/04/2023 The thought [...] of this encounter Progress Notes * Julian Combs, - 10/02/2023 1:40 PM EDT GENETIC COUNSELING FOR MATERNAL MEDICINE at [facility] | | Email: [email or web address] Name: Melisa Graves Date: 10/02/2023 - 1:00 PM EDT Present for consult: Melisa Graves, Willam Bradford (FOB), Julianrachel Combs, MS, CGC Seen previously by M Genetic [...] comprehensive carrier screening, testing for 600conditions through [employer]. - Patient plans to obtain genetic testing [...] patient be offered MSAFP-only screening through the solid plasterer's office, at 15-22weeks gestation (preferably 15-18 weeks), [...] patient share this family history with the voice engineer. Anatomy Ultrasounds: scheduled, through patient's OB (per [...] unable to provide more precise recurrence risk director counseling bureau without further information, ideally including confirmatory medical [...] with any questions regarding this report. Julian Combs, [facility] Licensed, Certified Genetic Counselor Maternal Medicine [facility] [phone] Patient location: HOME. I was not in a hospital or clinic location. After connecting through televideo, patient was verified with two unique identifiers. Patient (or authorized legal claim representative) was then informed that this was [...] Miscellaneous Notes * Addendum Note - Julian Combs MS - 10/02/2023 2:17 PM EDTAddended by: JULIAN COMBS on: 10/02/2023 02:17 PM Modules accepted: Orders documented in this encounter Plan of Treatment Upcoming Encounters Date Type Department Care Team (Late st Contact Info) Description 11/03/2023 9:45 AM EDT Imaging Radiology [facility] 132 [facility] [place] [address] 11/03/2023 11:30 AM EDT Office Visit Gynecology/Obstetrics [facility] [address] [facility] [place] [address] Cass Roque PA-C 132 [facility] [place] [address] 11/11/2023 2:40 PM EDT Office Visit General Internal Medicine [facility] [address] [place] [address] Tammy Stauffer MD 200 [facility] [place] [address] 11/13/2023 8:40 AM EDT Office Visit General Internal Medicine [facility] [place] [address] [place] [address] Tammy Stauffer MD 200 [facility] [place] [address] Scheduled Orders Name Type Priority Associated Diagnoses Orde r Schedule COMPREHENSIVE CARRIER SCREEN Lab Routine Family history of genetic disorder Encounter of female for testing for genetic disease carrier status for procreative management Screening for genetic disease carrier status Expected: 10/02/2023, Expires: 10/01/2024 Health Maintenance Due Date Last [...] status documented in this encounter Care Teams Subwarehouse Supervisor Relationship Specialty Start Date End Date Tammy Stauffer MD [address] [place] [address] PCP - General Internal Medicine 04/16/19 documented as of this encounter
--- OUTSIDE RECORDS SUMMARY | 2024-03-11 15:19 | External Medical Summary | Summary of Care ---
Author Name Unknown Organization [facility] Address [address] [place] [address] Phone [phone] Care Team Providers Care Metaphysician Name Role Phone Tammy Stauffer MD Primary Care Provider + Reason for Visit * Reason Onset Date Comments Referral 09/29/2023 Genetic Counseli ng Referral Encounter Details Date Type Department Care Team (Late st Contact Info) Description 09/29/2023 Telephone Tower Watchman Obstetrics Maternal Medicine, [place] [address] [place] [address] Manda Neil CHRA Referral (Genetic Counseling Referral) Allergies Active Allergy Reactions Criticality Noted Date [...] mRNA, LNP-s, No Pre serve, 2-Dose Series ([employer]) 03/01/2021,07/17/2020,06/27/2020 Hepatitis B, 20+ yrs 10/10/2022,09/10/2022 Seasonal [...] money to get more. Never true 02/21/2023 [place] Depression Scale Answer Date Recorded [place] Depression Scale Total 6 09/04/2023 The thought [...] encounter Miscellaneous Notes * Telephone Encounter - Manda Neil CHRA - 09/29/2023 2:32 PM EDT Spoke to the patient about their genetic counseling referral. Scheduled the patient for a genetic counseling appointment on 10/02/2023 at 1:00PM. My sent with appointment details. Respectfully, Manda Neil Genetic Counseling [facility] Maternal Medicine/Transition Clinic For further questions call the Genetic Counselor at + . 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 Visit can be in person "genetic counseling MFM" or "new video visit home." Visit type is based on patient preferenceand genetic counselor in person availability. Respectfully, Manda Neil Genetic Counseling [employer] Maternal Medicine/Transition Clinic For further questions call the Genetic Counselor at + . documented in this encounter Plan of Treatment Upcoming Encounters Date Type Department Care Team (Late st Contact Info) Description 10/02/2023 9:00 AM EDT Office Visit Gynecology/Obstetrics [facility] [address] [place] [address] Malaika Cordova CRNP [address] [place] [address] 10/02/2023 1:00 PM EDT Telemedicine Tower Watchman Obstetrics Maternal Medicine, [place] [address] [place] [address] Althea Moreira, MS [address] [place] [address] 11/11/2023 2:40 PM EDT Office Visit General Internal Medicine [address] [facility] [place] [address] [place] [address] Tammy Stauffer MD [address] [place] [address] 11/13/2023 8:40 AM EDT Office Visit General Internal Medicine [place] [facility] [place] [address] [place] [address] Tammy Stauffer MD [address] [place] [address] Health Maintenance Due Date Last Done Comments [...] filedocumented as of this encounter Care Teams Metaphysician Relationship Specialty Start Date End Date Tammy Stauffer MD [address] [place] [address] PCP - General Internal Medicine 04/16/19 documented as of this encounter
--- OUTSIDE RECORDS SUMMARY | 2024-03-11 15:19 | External Medical Summary | Summary of Care ---
Author Name Unknown Organization [facility] Address [address] [place] [address] Phone [phone] Care Team Providers Care Plastic Straightening Roll Operator Name Role Phone Tammy Stauffer MD Primary Care Provider + Reason for Visit * Reason Comments Outpatient Testing Encounter Details Date Type Department Care Team (Late st Contact Info) Description 09/16/2023 7:50 AM EDT Laboratory Laboratory [facility] [address] [place] [phone] [facility] [address] [place] [address] Encounter for long-term (current) use of medications [...] mRNA, LNP-s, No Pre serve, 2-Dose Series ([employer]) 03/01/2021,07/17/2020,06/27/2020 Hepatitis B, 20+ yrs 10/10/2022,09/10/2022 Seasonal [...] money to get more. Never true 02/21/2023 [place] Depression Scale Answer Date Recorded [place] Depression Scale Total 6 09/04/2023 The thought [...] No 02/21/2023 Does the household have a up health systemr source of income? (Household - for ages [...] Visit Gynecology/Obstetrics [facility] [address] [place] [address] Malaika Cordova CRNP [address] [place] [address] 11/13/2023 8:40 AM EDT Office Visit General Internal Medicine [place] Claudia Islas [address] [place] [address] Tammy Stauffer MD [address] [place] [address] Pending Results Name Type Priority Associated Diagnoses [...] medications documented in this encounter Care Teams Plastic Straightening Roll Operator Relationship Specialty Start Date End Date Tammy Stauffer MD [address] [place], [place] [address] PCP - General Internal Medicine 04/16/19 documented as of this encounter
--- OUTSIDE RECORDS SUMMARY | 2024-03-11 15:19 | External Medical Summary | Summary of Care ---
Author Name Unknown Organization [facility] Address [address] [place] [address] Phone [phone] Care Team Providers Care Junior Graphic Designer Name Role Phone Tammy Stauffer MD Primary Care Provider + Reason for Visit * Reason Comments Outpatient Testing Encounter Details Date Type Department Care Team (Late st Contact Info) Description 10/02/2023 9:20 AM EDT Laboratory Laboratory, [facility] [address] [place] [phone] [facility] [address] [place] [address] Encounter for supervision of normal first in [...] mRNA, LNP-s, No Pre serve, 2-Dose Series ([employer]) 03/01/2021,07/17/2020,06/27/2020 Hepatitis B, 20+ yrs 10/10/2022,09/10/2022 [...] money to get more. Never true 02/21/2023 [place] Depression Scale Answer Date Recorded [place] Depression Scale Total 6 09/04/2023 The thought [...] No 02/21/2023 Does the household have a [facility] source of income? (Household - for ages [...] Info) Description 10/02/2023 1:00 PM EDT Telemedicine Particle Board Supervisor Obstetrics Maternal Medicine, [place] [address] [place] [address] Althea Moreira, MS [address] [place] [address] 11/03/2023 9:45 AM EDT Imaging Radiology [facility] [place] [address] 11/03/2023 11:30 AM EDT Office Visit Gynecology/Obstetrics [facility] [address] [place] [address] Cass Roque PA-C [address] [place] [address] 11/11/2023 2:40 PM EDT Office Visit General Internal Medicine [facility] 200 [facility] [place] [address] Tammy Stauffer MD 200 [facility] [place] [address] 11/13/2023 8:40 AM EDT Office Visit General Internal Medicine [facility] 200 [facility] [place] [address] Tammy Stauffer MD 200 [facility] [place] [address] Pending Results Name Type Priority Associated Diagnoses Date /Time MATERNAL SERUM AFP Lab Routine Encounter for supervision of normal first in second trimester 10/02/2023 9:16 AM EDT Health Maintenance Due Date Last [...] first documented in this encounter Care Teams Junior Graphic Designer Relationship Specialty Start Date End Date Tammy Stauffer MD 200 [facility] [place] [address] PCP - General Internal Medicine 04/16/19 documented as of this encounter
--- OUTSIDE RECORDS SUMMARY | 2024-03-11 15:19 | External Medical Summary | Summary of Care ---
Author Name Unknown Organization [facility] Address [address] [place] [address] Phone [phone] Care Team Providers Care Director Internal Communications Name Role Phone Tammy Stauffer MD Primary Care Provider + Reason for Visit * Reason Comments Genetic Counseling * Evaluate & Treat - Unlimited Visits (Within 10 days (routine)) - Authorized Specialty Diagnoses / Procedures Referred By Contact Referred To Contact Medical Genetics / Hematology Oncology Diagnoses Mucopolysaccharidosis, unspecified mucopolysaccharidosis type (HCC) Flor Pack CRNP [address] [place] [address] Referral ID Status Reason Start Date Expiration Date Visits Requested Visits Authorized [id number] Authorized Specialty Services Required 09/23/2023 [id number] Encounter Details Date Type Department Care Team (Late st Contact Info) Description 10/02/2023 1:00 PM EDT Telemedicine Cloth Edge Singer Obstetrics Maternal Medicine, [place] [address] [place], [place] [phone] Julian Moreira, MS [address] [place], [place] [phone] Family history of genetic disorder*; Encounter for [...] mRNA, LNP-s, No Pre serve, 2-Dose Series ([employer]) 03/01/2021,07/17/2020,06/27/2020 Hepatitis B, 20+ yrs 10/10/2022,09/10/2022 Seasonal [...] money to get more. Never true 02/21/2023 [place] Depression Scale Answer Date Recorded [place] Depression Scale Total 6 09/04/2023 The thought [...] EDT GENETIC COUNSELING FOR MATERNAL MEDICINE at [facility] [address] | | Email: [email or web address] Name: Melisa Graves Date: 10/02/2023 - 1:00 [...] comprehensive carrier screening, testing for 600conditions through [employer]. - Patient plans to obtain genetic testing [...] patient be offered MSAFP-only screening through the adult specialist's office, at 15-22weeks gestation (preferably 15-18 weeks), [...] patient share this family history with the excellence leader. Anatomy Ultrasounds: scheduled, through patient's OB (per [...] unable to provide more precise recurrence risk middle school counselor without further information, ideally including confirmatory [...] Julian Moreira, [facility] Licensed, Certified Genetic Counselor Maternal Medicine [facility] [place] [facility] [phone] Patient location: HOME. I was not in a hospital or clinic location. After connecting through televideo, patient was verified with two unique identifiers. Patient (or authorized legal digital media representative) was then informed that this was [...] Description 11/03/2023 9:45 AM EDT Imaging Radiology [facility] 132 [facility] [place] [address] 11/03/2023 11:30 AM EDT Office Visit Gynecology/Obstetrics [facility] 132 [facility] [place] [address] Cass Roque PA-C 132 [facility] [place] [address] 11/11/2023 2:40 PM EDT Office Visit General Internal Medicine [facility] [address] [place] [address] Tammy Stauffer MD 200 [facility] [place] [address] 11/13/2023 8:40 AM EDT Office Visit General Internal Medicine [facility] [place] [facility] [place] [address] Tammy Stauffer MD 200 [facility] [place] [address] Health Maintenance Due Date Last Done Comments [...] status documented in this encounter Care Teams Director Internal Communications Relationship Specialty Start Date End Date Tammy Stauffer MD 200 [facility] [place] [address] PCP - General Internal Medicine 04/16/19 documented as of this encounter
--- NOTE | 2024-03-11 22:43 | Obstetrical Progress Note ---
Date of Service March 11, 2024 Assessment & Plan Admission and Anticipated Discharge Date Admission Date: March 11, 2024 Subjective Patient is reevaluated Cervidil was removed about an hour ago, she took shower and ate, feeslw ell Mild irregular contractions, not painful No LOF/VB +FM'S VE; 1/ 50%/ -4, posterior, head ballotable, softer FHR categ I Mcalester irregular ctxs patient does not feel them all Discussed to continue with Cervical ripening, IV Cervidil vs PO Cytotec, patient is okay with 2nd Cervidil Continue to monitor closely Results & Data Vital Signs (Past 12 Hours) Vital Signs Temp Pulse Resp BP 03/11/24 22:09 78 141/85 H 03/11/24 19:45 18 03/11/24 19:45 37.4 C 18 03/11/24 19:38 102 H 153/85 H 03/11/24 15:00 18 03/11/24 15:00 36.8 C 18 03/11/24 14:59 86 130/83 03/11/24 12:10 16 03/11/24 12:10 36.9 C 16 03/11/24 12:08 74 141/87 H
[2024-03-12] MEDS: VENLAFAXINE HCL XR 75 MG CAPXR PO SCH (07:13)
[2024-03-12] MEDS: SODIUM CHLORIDE 0.9% 1,000 ML IV SCH (09:00)
[2024-03-12] MEDS ORDERED: SODIUM CHLORIDE 0.9% 500 ML IV SCH ×2 (09:00)
[2024-03-12] MEDS ORDERED: BUPIVACAINE 0.25% PF 30 ML VIAL EPI PRN (10:11)
[2024-03-12] MEDS ORDERED: ONDANSETRON INJ 2 MG/ML 2 ML VIAL IV PRN (10:11)
[2024-03-12] MEDS ORDERED: fentaNYL citrate PF 100 MCG/2 ML VIAL EPI PRN (10:11)
[2024-03-12] MEDS ORDERED: diphenhydrAMINE 50 MG/ML VIAL IV PRN (10:11)
[2024-03-12] MEDS ORDERED: LIDOCAINE 2%/EPINEPHRINE 1:200,000 20 ML PF EPI STA (10:11)
[2024-03-12] MEDS ORDERED: SODIUM CHLORIDE 0.9% PF INJ 10 ML VIAL EPI PRN (10:11)
[2024-03-12] MEDS ORDERED: NALOXONE HCL 0.4 MG/1 ML VIAL/CARP IV PRN (10:11)
[2024-03-12] MEDS ORDERED: LIDOCAINE 2% MPF LOCAL 5 ML VIAL EPI PRN (10:11)
[2024-03-12] MEDS ORDERED: ePHEDrine sulfate 50 MG/ML AMP IV PRN (10:11)
[2024-03-12] MEDS ORDERED: ROPIVACAINE 0.5% PF 5 MG/ML 20 ML VIAL EPI PRN (10:11)
[2024-03-12] MEDS ORDERED: NALOXONE HCL 1 MG in SODIUM CHLORIDE 0.9% 1,000 ML IV PRN (10:11)
[2024-03-12] MEDS ORDERED: NALBUPHINE HCL INJ 10 MG/ML AMP IV PRN (10:11)
--- NOTE | 2024-03-12 10:11 | Anesthesiology Consultation ---
Date of Service March 12, 2024 Assessment & Plan ASA ASA2 Proposed Anesthesia Anesthesia Type: Labor Epidural Risk / Benefits Reviewed With: PT / POA / Parent / Guardian, Accepts Plan and Informed Consent Obtained History Height/Weight Height: 5 ft 5 in Weight: 103.419 kg Allergies Allergy/AdvReac Type Severity Reaction Status Date / Time No Known Allergies Allergy Verified 05/24/19 14:40 Medications Home Medications Medication Instructions Recorded Confirmed Last Taken venlafaxine 75 mg capsule,extended 75 mg PO QAM 03/11/24 03/11/24 03/11/24 07:30 release 24 hr (Effexor XR) Active Medications Generic Name Dose Route Start Last Admin Trade Name Freq PRN Reason Stop Dose Admin Sodium Chloride 1,000 mls @ 80 mls/hr 03/12/24 09:15 03/12/24 10:30 Nss IV 03/13/24 09:14 50 mls/hr .[id number] LORNA Infusion Venlafaxine HCl 75 mg 03/12/24 09:00 03/12/24 07:13 Venlafaxine Hcl Xr 75 Mg Capxr PO 04/11/24 08:59 75 mg QAM LORNA Administration Past Medical History Medical History Snake bite poisoning copperhead bite in childhood, age 5 History of varicella as a child Exercise / Class Metabolic Activity II 4-5 Yardwork/Stairs/Walk up hill Past Family History Family History Grandfather (Paternal) Myocardial infarction Denies family history of Ovarian cancer Prostate cancer Breast cancer Colonic polyp Past Surgical History Surgical History H/O wisdom tooth extraction History of appendectomy 2014 Past Anesthesia History No Hx of Anesthesia Complications and No Family Hx of Anesthesia Complications History of PONV No Hx of PONV and No Hx of Motion Sickness Social History Smoking Status: Never smoker Do You Dip or Chew Tobacco: No Hx Alcohol Use: No Hx Substance Use: No Review of Systems denies fever/cough/ colds/ chest pain/ SOB/ JOHANNY denies JOHANNY Physical Exam Vital Signs Last Vital Signs Temp 37.0 C 03/12/24 09:15 Pulse 92 H 03/12/24 10:49 Resp 16 12/20/24 09:15 BP 140/72 03/12/24 10:44 Pulse Ox 98 03/12/24 10:49 ENMT Mouth: no TMJ abnormality and no dentition abnormality Thyromental Distance: > or= 3.5 Finger Breadths Mallampati Class: II Neck neck extension not limited Respiratory normal respiratory effort; no respiratory distress Auscultation: lungs clear to auscultation bilaterally Cardiovascular Rate/Rhythm: regular rate and regular rhythm Neurologic moves all extremities Psychiatric Orientation: alert and oriented x 3 Testing Laboratory Results 03/11/24 08:41 03/11/24 08:41 Blood Type A Positive 03/11/24 08:41 Antibody Screen NEGATIVE 03/11/24 08:41
[2024-03-12] MEDS: fentANYL 2 MCG/ML BUPIVacaine 0.125%-NSS 100ML BAG ONE (10:38)
[2024-03-12] MEDS: LIDOCAINE 2%/EPINEPHRINE 1:200,000 20 ML PF ONE (10:38)
[2024-03-12] MEDS: BUPIVACAINE 0.25% PF 30 ML VIAL ONE (10:38)
[2024-03-12] MEDS: fentaNYL citrate PF 100 MCG/2 ML VIAL ONE (10:39)
[2024-03-12] MEDS: SODIUM CHLORIDE 0.9% PF INJ 10 ML VIAL ONE (10:47)
[2024-03-12] MEDS: ePHEDrine sulfate 50 MG/ML AMP ONE (10:47)
[2024-03-12] MEDS: OXYTOCIN 30 UNITS/NSS 30 UNITS/500 ML BAG IV PRN (11:58)
--- NOTE | 2024-03-12 13:24 | Labor Progress Brief Note ---
Date of Service March 12, 2024 Assessment & Plan Admission and Anticipated Discharge Date Admission Date: March 11, 2024 Physical Exam Genitourinary: Manual OB Exam: + cervical dilation 4 cm, + cervical effacement 90%, + station -1 and + amniotic fluid clear OB Exam Monitor Tracing: + external FHT monitor used, + external uterine monitor used, + category I and + normal FHT variability Results & Data Vital Signs (Past 12 Hours) Vital Signs Temp Pulse Resp BP Pulse Ox 03/12/24 13:19 96 H 98 03/12/24 13:15 83 135/76 03/12/24 13:14 81 96 03/12/24 13:09 82 96 03/12/24 13:04 77 97 03/12/24 13:00 81 16 128/70 03/12/24 12:59 73 97 03/12/24 12:54 91 H 97 03/12/24 12:49 82 97 03/12/24 12:45 80 121/75 03/12/24 12:44 81 98 03/12/24 12:39 78 97 03/12/24 12:34 82 97 03/12/24 12:31 88 112/67 03/12/24 12:30 16 03/12/24 12:30 16 03/12/24 12:29 77 98 03/12/24 12:24 89 98 03/12/24 12:19 83 97 03/12/24 12:15 75 116/61 03/12/24 12:14 75 98 03/12/24 12:09 81 98 03/12/24 12:04 88 98 03/12/24 12:00 16 03/12/24 12:00 16 03/12/24 11:59 88 98 03/12/24 11:54 98 H 98 03/12/24 11:49 92 H 99 03/12/24 11:46 93 H 114/70 03/12/24 11:44 71 97 03/12/24 11:39 81 96 03/12/24 11:34 73 96 03/12/24 11:31 71 130/74 03/12/24 11:29 81 96 03/12/24 11:24 74 98 03/12/24 11:19 72 97 03/12/24 11:15 36.7 C 78 135/71 03/12/24 11:14 74 97 03/12/24 11:09 74 97 03/12/24 11:04 79 98 03/12/24 11:00 79 16 126/68 03/12/24 10:59 78 132/69 97 03/12/24 10:54 80 97 03/12/24 10:49 92 H 98 03/12/24 10:44 93 H 140/72 98 03/12/24 10:43 16 03/12/24 10:43 16 03/12/24 10:42 88 137/73 03/12/24 10:40 89 16 151/81 H 03/12/24 10:39 86 99 03/12/24 10:38 100 H 144/82 H 03/12/24 10:36 94 H 16 154/87 H 03/12/24 10:34 100 H 98 03/12/24 10:29 95 H 98 03/12/24 10:26 102 H 152/85 H 03/12/24 10:24 91 H 99 03/12/24 10:19 94 H 98 03/12/24 10:14 87 99 03/12/24 10:09 87 97 03/12/24 09:42 78 144/85 H 03/12/24 09:15 16 03/12/24 09:15 37.0 C 16 03/12/24 09:15 16 03/12/24 09:15 36.7 C 16 03/12/24 09:12 79 141/80 H 03/12/24 08:42 87 142/88 H 03/12/24 07:15 36.6 C 18 03/12/24 07:14 123 H 132/89 03/12/24 04:00 18 03/12/24 04:00 36.7 C 18 03/12/24 03:43 74 132/79 03/12/24 03:42 74 164/91 H
[2024-03-12] MEDS ORDERED: NURSING L&D Epidural Breakthrough Pain Update ONE (14:33)
[2024-03-12] MEDS: SODIUM CHLORIDE 0.9% PF INJ 10 ML VIAL EPI STA (15:16)
[2024-03-12] MEDS: BUPIVACAINE 0.25% PF 30 ML VIAL EPI STA (15:17)
[2024-03-12] MEDS: fentaNYL citrate PF 100 MCG/2 ML VIAL EPI STA (15:17)
--- NOTE | 2024-03-12 15:21 | Anesthesia Procedure Note ---
Date of Service March 12, 2024 Anesthesia Epidural Re-Dose Vital Signs Temp Pulse Resp BP Pulse Ox 36.7 C 89 16 160/85 H 98 03/12/24 11:15 03/12/24 15:19 03/12/24 14:30 03/12/24 15:19 03/12/24 15:19 Notes Pain Intensity: 5 Dilatation (cm): 4.0 Effacement (%): 90 Called by nursing to evaluate epidural as the patient is having increased pain. The epidural was re-dosed with the following medications (all medications via epidural route) after negative aspiration of the epidural catheter for CSF/HEME. 0.2 Ropivacaine ml via epidural After Epidural Re-Dose Mental Status: alert / awake / arousable and participated in evaluation Pain: improving with treatment Airway Patency, RR, SpO2: stable & adequate BP & HR: stable & adequate
--- NOTE | 2024-03-12 16:31 | Labor Progress Brief Note ---
Date of Service March 12, 2024 Assessment & Plan Admission and Anticipated Discharge Date Admission Date: March 11, 2024 Physical Exam Genitourinary: Manual OB Exam: + cervical dilation 6 cm, + cervical effacement 90%, + station -1 and 0 and + amniotic fluid clear OB Exam Monitor Tracing: + external FHT monitor used, + external uterine monitor used, + category I and + normal FHT variability Results & Data Vital Signs (Past 12 Hours) Vital Signs Temp Pulse Resp BP Pulse Ox 03/12/24 16:24 71 96 03/12/24 16:19 72 97 03/12/24 16:16 72 151/78 H 03/12/24 16:14 74 97 03/12/24 16:09 73 97 03/12/24 16:04 78 96 03/12/24 16:01 72 144/77 H 03/12/24 16:00 16 03/12/24 16:00 16 03/12/24 15:59 73 96 03/12/24 15:54 86 97 03/12/24 15:49 85 97 03/12/24 15:48 80 151/89 H 03/12/24 15:44 83 98 03/12/24 15:39 85 97 03/12/24 15:34 83 96 03/12/24 15:30 85 16 156/84 H 03/12/24 15:29 72 94 03/12/24 15:26 76 150/80 H 03/12/24 15:24 83 99 03/12/24 15:23 77 93 03/12/24 15:21 81 159/84 H 03/12/24 15:19 98 03/12/24 15:19 89 03/12/24 15:19 88 160/85 H 03/12/24 15:17 116 H 159/86 H 03/12/24 15:16 102 H 166/90 H 03/12/24 15:14 100 H 98 03/12/24 15:09 90 97 03/12/24 15:04 83 95 03/12/24 15:00 36.8 C 82 20 141/73 H 93 03/12/24 14:59 89 98 03/12/24 14:54 90 96 03/12/24 14:49 94 H 97 03/12/24 14:45 83 143/74 H 03/12/24 14:44 97 H 97 03/12/24 14:39 94 H 97 03/12/24 14:34 96 H 97 03/12/24 14:31 86 141/79 H 03/12/24 14:30 16 03/12/24 14:30 16 03/12/24 14:29 106 H 96 03/12/24 14:24 82 99 03/12/24 14:19 93 H 97 03/12/24 14:17 90 156/84 H 03/12/24 14:14 91 H 97 03/12/24 14:09 85 98 03/12/24 14:04 93 H 97 03/12/24 14:00 86 16 143/81 H 03/12/24 13:59 89 98 03/12/24 13:54 85 96 03/12/24 13:49 75 96 03/12/24 13:45 81 130/72 03/12/24 13:44 76 96 03/12/24 13:39 73 97 03/12/24 13:34 75 96 03/12/24 13:31 75 136/77 03/12/24 13:30 16 03/12/24 13:30 16 03/12/24 13:29 76 98 03/12/24 13:24 75 97 03/12/24 13:19 96 H 98 03/12/24 13:15 83 135/76 03/12/24 13:14 81 96 03/12/24 13:09 82 96 03/12/24 13:04 77 97 03/12/24 13:00 81 16 128/70 03/12/24 12:59 73 97 03/12/24 12:54 91 H 97 03/12/24 12:49 82 97 03/12/24 12:45 80 121/75 03/12/24 12:44 81 98 03/12/24 12:39 78 97 03/12/24 12:34 82 97 03/12/24 12:31 88 112/67 03/12/24 12:30 16 03/12/24 12:30 16 03/12/24 12:29 77 98 03/12/24 12:24 89 98 03/12/24 12:19 83 97 03/12/24 12:15 75 116/61 03/12/24 12:14 75 98 03/12/24 12:09 81 98 03/12/24 12:04 88 98 03/12/24 12:00 16 03/12/24 12:00 16 03/12/24 11:59 88 98 03/12/24 11:54 98 H 98 03/12/24 11:49 92 H 99 03/12/24 11:46 93 H 114/70 03/12/24 11:44 71 97 03/12/24 11:39 81 96 03/12/24 11:34 73 96 03/12/24 11:31 71 130/74 03/12/24 11:29 81 96 03/12/24 11:24 74 98 03/12/24 11:19 72 97 03/12/24 11:15 36.7 C 78 135/71 03/12/24 11:14 74 97 03/12/24 11:09 74 97 03/12/24 11:04 79 98 03/12/24 11:00 79 16 126/68 03/12/24 10:59 78 132/69 97 03/12/24 10:54 80 97 03/12/24 10:49 92 H 98 03/12/24 10:44 93 H 140/72 98 03/12/24 10:43 16 03/12/24 10:43 16 03/12/24 10:42 88 137/73 03/12/24 10:40 89 16 151/81 H 03/12/24 10:39 86 99 03/12/24 10:38 100 H 144/82 H 03/12/24 10:36 94 H 16 154/87 H 03/12/24 10:34 100 H 98 03/12/24 10:29 95 H 98 03/12/24 10:26 102 H 152/85 H 03/12/24 10:24 91 H 99 03/12/24 10:19 94 H 98 03/12/24 10:14 87 99 03/12/24 10:09 87 97 03/12/24 09:42 78 144/85 H 03/12/24 09:15 16 03/12/24 09:15 37.0 C 16 03/12/24 09:15 16 03/12/24 09:15 36.7 C 16 03/12/24 09:12 79 141/80 H 03/12/24 08:42 87 142/88 H 03/12/24 07:15 36.6 C 18 03/12/24 07:14 123 H 132/89
[2024-03-12] MEDS: fentANYL 2 MCG/ML BUPIVacaine 0.125%-NSS 100ML BAG EPI PRN (16:37)
[2024-03-12] MEDS ORDERED: bisacodyL 10 MG SUPP PR PRN (21:00)
[2024-03-12] MEDS ORDERED: OXYTOCIN 30 UNITS/NSS 30 UNITS/500 ML BAG IV PRN (21:00)
[2024-03-12] MEDS ORDERED: BENZOCAINE 20% SPRY 85 APPLN/85 GM CAN EXT PRN (21:00)
[2024-03-12] MEDS ORDERED: HYDROCORTISONE ACETATE 25 MG SUPP PR PRN (21:00)
[2024-03-12] MEDS ORDERED: ACETAMINOPHEN 325 MG TAB PO PRN (21:00)
--- NOTE | 2024-03-12 21:05 | Delivery Summary ---
Vaginal Delivery Summary Date of Service March 12, 2024 Vaginal Delivery Summary live male [id number] over intact perineum with nuchal cord x1 reduced at delivery of head. Apgars and weight pending. Cord blood obtained for blood gasses and lab. Placenta delivered spontaneously and intact. No tears. QBL pending. Bladder drained 200 ml. urine. Final sponge and instrument count are correct. Mom and baby stable.
[2024-03-12] MEDS: DIPHTHER/TETAN/PERTUS Vaccine (Tdap, Adol/Adult) 0.5mL IM ONE (21:33)
[2024-03-12] MEDS: DOCUSATE SODIUM 100 MG CAP PO SCH (21:46)
[2024-03-12 22:56] LABS: Cord Venous Blood HCO3 18 mmol/L (18.4-26.8); Cord Venous Blood PCO2 39 mmHg (30.4-57.2); Cord Venous Blood PO2 39 mmHg (14.1-43.3); Cord Venous Blood pH 7.26 (7.20-7.44); O2 Saturation Cord Venous Bld 74.7 % (<68)
[2024-03-12] MEDS ORDERED: SODIUM CHLORIDE 0.9% 50 ML IV PRN (23:03)
[2024-03-12] MEDS ORDERED: SODIUM CHLORIDE 0.9% 100 ML IV PRN (23:03)
--- NOTE | 2024-03-13 00:11 | Anesthesia Procedure Note ---
Date of Service March 13, 2024 Anesthesia Post Epidural Note Vital Signs Vital Signs: Temp Pulse Resp BP Pulse Ox 36.7 C 134 H 18 137/78 94 03/12/24 19:00 03/12/24 22:50 03/12/24 22:50 03/12/24 22:50 03/12/24 20:43 Pain Intensity Back: Pain Intensity: 6 Notes Mental Status: alert / awake / arousable and participated in evaluation Nausea / Vomiting: adequately controlled Pain: adequately controlled Airway Patency, RR, SpO2: stable & adequate BP & HR: stable & adequate Hydration State: stable & adequate Neuraxial Anesthesia: was administered and sensory block is resolving Anesthetic Complications: no major complications apparent Epidural: Removed without complications and With tip intact
[2024-03-13] MEDS ORDERED: Nursing to Pharmacy Communication SCH (07:15)
[2024-03-13 07:21] LABS: Hematocrit (blood only) 33.2 % (37.0-47.0); Hemoglobin 11.2 g/dl (12.0-16.0); Mean Corpuscular Hemoglobin 31.5 pg (25.0-34.0); Mean Corpuscular Hgb Conc 33.7 g/dL (32.0-36.0); Mean Corpuscular Volume 93.5 fL (80.0-100.0); Mean Platelet Volume 11.8 fL (9.4-12.4); Platelet Count 170 K/uL (130-400); RDW Coefficient of Variation 13.2 % (11.5-14.5); RDW Standard Deviation 45.6 fL (36.4-46.3); Red Blood Count 3.55 M/uL (4.20-5.40); White Blood Count 13.18 K/ul (4.8-10.8)
[2024-03-13] MEDS: PRENATAL VITAMIN 1 TAB PO SCH (07:36)
[2024-03-13] MEDS: FERROUS SULFATE 325 MG TAB PO SCH (07:36)
[2024-03-13] MEDS: IBUPROFEN 600 MG TAB PO PRN (07:54)
[2024-03-13] MEDS ORDERED: VENLAFAXINE HCL XR 75 MG CAPXR PO SCH (09:00)
[2024-03-13 09:20] LABS: Hematocrit (blood only) 32.2 % (37.0-47.0); Hemoglobin 10.9 g/dl (12.0-16.0); Mean Corpuscular Hemoglobin 31.5 pg (25.0-34.0); Mean Corpuscular Hgb Conc 33.9 g/dL (32.0-36.0); Mean Corpuscular Volume 93.1 fL (80.0-100.0); Mean Platelet Volume 11.6 fL (9.4-12.4); Platelet Count 175 K/uL (130-400); RDW Coefficient of Variation 13.3 % (11.5-14.5); RDW Standard Deviation 44.9 fL (36.4-46.3); Red Blood Count 3.46 M/uL (4.20-5.40); White Blood Count 12.45 K/ul (4.8-10.8)
--- NOTE | 2024-03-13 09:28 | Obstetrical Progress Note ---
Date of Service March 13, 2024 Assessment & Plan (1) Normal course: PPD #1 pt doing well Continue day #1 care Subjective Ambulation: ambulating normally Voiding: no voiding problems Passing Gas:: Yes Diet Tolerance:: regular diet Lochia:: Small Feeding Type:: breast feeding Review of Systems All systems reviewed & are unremarkable except as noted in HPI & below Physical Exam Constitutional WD/WN, vitals as above well developed and well nourished Eyes PERRL, conjunctivae normal, anicteric sclerae Neck trachea midline, no thyromegaly Respiratory normal respiratory effort, lungs clear to auscultation Auscultation: no crackles, no rales and no wheezes Cardiovascular RRR, no murmur, no edema Gastrointestinal (Abdomen) normal bowel sounds, soft, nontender, no hepatosplenomegaly Uterus is below umbilicus Musculoskeletal no cyanosis or clubbing, extremities motor strength 5/5 Skin no rashes, warm and dry Neurologic patellar DTR's 2+ bilat, sensation intact Psychiatric A+Ox3, euthymic affect Genitourinary normal external appearance Results & Data Vital Signs (Past 12 Hours) Vital Signs Temp Pulse Pulse Resp BP BP BP 03/13/24 07:40 03/13/24 07:40 36.7 C 88 18 152/88 H 148/95 H 03/13/24 03:50 36.8 C 106 H 14 148/90 H 03/13/24 00:15 36.6 C 110 H 14 135/86 03/12/24 22:50 18 03/12/24 22:50 134 H 137/78 03/12/24 22:36 129 H 137/68 03/12/24 22:21 122 H 158/74 H 03/12/24 22:20 133 H 170/79 H 03/12/24 22:16 130 H 176/116 H 03/12/24 22:00 113 H 154/89 H 03/12/24 21:50 18 03/12/24 21:45 115 H 148/87 H 03/12/24 21:35 18 03/12/24 21:30 114 H 141/79 H Pulse Ox O2 Del Method 03/13/24 07:40 Room Air 03/13/24 07:40 98 Room Air 03/13/24 03:50 Room Air 03/13/24 00:15 Room Air 03/12/24 22:50 03/12/24 22:50 03/12/24 22:36 03/12/24 22:21 03/12/24 22:20 03/12/24 22:16 03/12/24 22:00 03/12/24 21:50 03/12/24 21:45 03/12/24 21:35 03/12/24 21:30
[2024-03-13 09:35] LABS: Albumin Globulin Ratio 1.2 (0.9-2); Albumin Level 2.9 gm/dl (3.4-5.0); BUN Creatinine Ratio 12.7 (10-20); Bilirubin,Total 0.5 mg/dl (0.2-1.0); Calcium 8.9 mg/dl (8.6-10.3); Creatinine Clr Calc Pharmacy 170.3 ml/min; Globulin 2.4 gm/dl (2.5-4.0); Potassium 3.9 mmol/L (3.5-5.1); Total Protein 5.3 gm/dl (6.0-8.3)
[2024-03-13 20:22] VITALS: RESP 18; O2SAT 97
[2024-03-13] MEDS: bisacodyL 5 MG TABEC PO SCH (20:34)
[2024-03-14 06:58] LABS: Hematocrit (blood only) 30.8 % (37.0-47.0); Hemoglobin 10.2 g/dl (12.0-16.0)
[2024-03-14 09:00] VITALS: BP 125/88; PULSE 88; TEMP 98.2
--- NOTE | 2024-03-14 09:03 | Obstetrical Progress Note ---
Date of Service March 14, 2024 Assessment & Plan Plan PPD #2 pt doing well d/c home with instructions Subjective Ambulation: ambulating normally Voiding: no voiding problems Passing Gas:: Yes Diet Tolerance:: regular diet Lochia:: Small Feeding Type:: breast feeding Review of Systems All systems reviewed & are unremarkable except as noted in HPI & below Physical Exam Constitutional WD/WN, vitals as above well developed and well nourished Eyes PERRL, conjunctivae normal, anicteric sclerae Neck trachea midline, no thyromegaly Respiratory normal respiratory effort, lungs clear to auscultation Auscultation: no crackles, no rales and no wheezes Cardiovascular RRR, no murmur, no edema Gastrointestinal (Abdomen) normal bowel sounds, soft, nontender, no hepatosplenomegaly Uterus is below umbilicus Musculoskeletal no cyanosis or clubbing, extremities motor strength 5/5 Skin no rashes, warm and dry Neurologic patellar DTR's 2+ bilat, sensation intact Psychiatric A+Ox3, euthymic affect Genitourinary normal external appearance Results & Data Vital Signs (Past 12 Hours) Vital Signs Temp Pulse Resp BP Pulse Ox O2 Del Method 03/14/24 07:40 36.8 C 88 18 125/88 Room Air 03/13/24 23:30 36.7 C 80 18 128/77 97 Room Air
== END 2024-03-14 14:10 | disposition home or self-care (01) | DRG 807 ==
LOC: 4S1 07:40 → 4E2 03-12 23:39